=== PATIENT | female | born 1950 | race Caucasian/White ===

== ENCOUNTER 2019-01-28 20:06 | Inpatient (IN) | payer OTHER, SELFPAY ==
[2019-01-28 20:10] VITALS: BP 124/67; PULSE 69; RESP 22; TEMP 36.4; O2SAT 98
[2019-01-28 20:38] LABS: Add Manual Diff / Slide Review NO; Basophils Absolute Auto 100 /uL (0-100); Basophils Percent Auto 0.6 % (0-2); Eosinophils Absolute Auto 100 /uL (0-450); Hematocrit 41.1 % (36-46); Hemoglobin 13.7 g/dL (12.0-16.0); Lymphocytes Absolute Auto 4500 /uL (1100-4500); Lymphocytes Percent Auto 33.7 % (25-40); Mean Corpuscular HGB Conc 33.2 % (30-36); Mean Corpuscular Hemoglobin 30.5 PG (26-34); Monocytes Absolute Auto 800 /uL (0-900); Monocytes Percent Auto 5.8 % (3-14); Neutrophils Absolute Auto 7800 /uL (1500-7000); Neutrophils Percent Auto 58.9 % (50-75); Platelet Count 309 X10^3/uL (150-400); Red Blood Cell Count 4.47 X10^6/uL (4.0-5.2); Red Cell Distribution Width 13.8 % (11.6-14.8); White Blood Cell Count 13.3 X10^3/uL (4.5-11.0)
[2019-01-28 20:43] LABS: INR 1.1 (0.9-1.3); Prothrombin Time 12.2 SECONDS (10.1-12.7)
[2019-01-28 20:46] LABS: PTT Partial Thromboplastin Tim 33 SECONDS (26.4-36.2)
[2019-01-28 20:48] LABS: Alanine Aminotransferase 19 IU/L (9-52); Albumin 4.6 g/dL (3.5-5.0); Albumin Globulin Ratio 1.4 (1.0-2.8); Alkaline Phosphatase 75 U/L (38-126); Aspartate Aminotransferase 31 IU/L (14-36); Bilirubin Total 0.2 mg/dL (0.2-1.3); Blood Urea Nitrogen 16 mg/dL (7-17); Carbon Dioxide 27 mmol/L (22-32); Chloride 103 mmol/L (98-107); Estimated Glomerular Filt Rate > 60.0 mL/min (>60); Globulin 3.2 g/dL (1.7-4.1); Glucose 106 mg/dL (80-110); HEMOLYSIS < 15 (0-50); Lipase 70 U/L (23-300); Potassium 3.5 mmol/L (3.4-5.1); Sodium 141 mmol/L (137-145); Total Protein 7.8 g/dL (6.3-8.2)
--- NOTE | 2019-01-28 20:58 | ED.ABDPAIN ---
HPI - Abdominal Pain General Chief Complaint: Abdominal Pain Stated Complaint: SEVERE STOMACH PAINS AND BACK Time Seen by Provider: 01/28/19 20:49 Source: patient Mode of arrival: Ambulatory Limitations: no limitations History of Present Illness HPI narrative: 68-year-old female here for evaluation of upper abdomen discomfort. States it was a fairly sudden onset. Some nausea but no vomiting. Patient stated that she had a normal bowel movement this morning. Is still passing flatus. Has had bowel obstructions in the past that have been treated medically. 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 She states that this feels different than her prior bowel obstructions. Patient stated that she did not want any opioid medications. Related Data Previous Rx's Medication Instructions Recorded metronidazole [Flagyl] 500 mg PO TID 10 Days #0 tab 04/13/16 sulfamethoxazole-trimethoprim 1 tab PO BID 10 Days #0 tab 04/13/16 ondansetron [Zofran ODT] 4 mg SUBLINGUAL Q6HP PRN #15 odt 04/17/16 Allergies Allergy/AdvReac Type Severity Reaction Status Date / Time Penicillins [PENICILLINS] Allergy Intermediate RASH Unverified 08/05/17 12:36 ciprofloxacin [From CIPRO] AdvReac Mild NAUSEA, Unverified 08/05/17 12:36 BURSITIS Review of Systems Constitutional Constitutional: Denies headache(s) ENT Ears, Nose, Mouth, and Throat: Denies headache(s) Cardiovascular Cardiovascular: Denies chest pain and Denies dyspnea Respiratory Respiratory: Denies dyspnea Gastrointestinal Gastrointestinal: Reports abdominal pain, Denies change in stool character, Reports nausea and Denies vomiting Genitourinary Genitourinary: Denies dysuria, Denies pelvic pain and Denies vaginal discharge Musculoskeletal Musculoskeletal: Reports back pain (Upper back pain) and Denies arthralgias Integumentary/Breasts Skin/Breast: Denies lesions and Denies rash Neurologic Neurologic: Denies behavioral changes and Denies headache(s) Psychiatric Psychiatric: Denies behavioral changes Hematologic/Lymphatic Hematologic/Lymphatic: Denies easy bleeding and Denies easy bruising [facility] Surgical History History of splenectomy Status post delivery Status post endometrial ablation Status post hernia repair Family History (Updated 09/17/15 @ 00:00 by Conversion Provider) Father Heart disease Social History household members: spouse Smoking Status: Former smoker alcohol intake: current Family History (Updated 09/17/15 @ 00:00 by Conversion Provider) Father Heart disease Social History household members: spouse Smoking Status: Former smoker alcohol intake: current Exam Initial Vital Signs Initial Vital Signs: Vital Signs Temperature 97.5 F L 01/28/19 20:10 Pulse Rate 69 01/28/19 20:10 Respiratory Rate 22 01/28/19 20:10 Blood Pressure 124/67 01/28/19 20:10 Pulse Oximetry 98 01/28/19 20:10 Const General: cooperative, well developed and well groomed Orientation: alert, awake and oriented x3 HENMT Head: normal to inspection and normocephalic Resp Effort & Inspection: normal respiratory effort Auscultation: clear to auscultation bilaterally Cardio Rate: regular rate Rhythm: regular rhythm GI Inspection: non-distended Palpation: soft, No firm, guarding and tender (Upper abdomen) Back/Spine/Pelvis Back: No CVA tenderness Thoracic/Lumbar Spine: paraspinal tenderness Skin Lesions: no lesions Rashes: no rashes Neuro General: alert, awake and oriented x3 Cognition: normal cognition Speech: speech normal Extrem General: normal to inspection and capillary refill normal Psych Appearance: grossly normal and well kempt Course Orders Ordered: ED Orders 01/28/19 20:19 EKG-12 Lead Stat 01/28/19 20:25 Complete Blood Count AUTO DIFF Stat Comprehensive Metabolic Panel Stat Lipase Stat Partial Thromboplastin Time Stat Prothrombin Time INR Stat 01/28/19 20:59 CT abdomen pelvis w con Stat 01/28/19 23:07 Lactate (Lactic Acid) Stat 01/29/19 00:04 Consult to General Surgery Stat Discontinued Medications Ketorolac Tromethamine (Toradol) 30 mg IV NOW ONE Stop: 01/28/19 21:00 Last Admin: 01/28/19 21:07 Dose: 30 mg Documented by: SHONDA Lorazepam (Ativan) 1 mg IV NOW ONE Stop: 01/28/19 21:00 Last Admin: 01/28/19 21:07 Dose: 1 mg Documented by: SHONDA Lorazepam (Ativan) 1 mg IV NOW ONE Stop: 01/28/19 23:49 Last Admin: 01/29/19 00:07 Dose: 1 mg Documented by: SHONDA Vital Signs Vital signs: Vital Signs - 8 hr 01/28/19 20:10 Temperature 97.5 F L Pulse Rate 69 Respiratory Rate 22 Blood Pressure 124/67 Pulse Oximetry 98 MDM - Abdominal Pain Lab Data Attestation: I reviewed the patient's lab results. Result diagrams: 01/28/19 20:25 01/28/19 20:25 Labs: Lab Results 01/28/19 01/28/19 01/28/19 Range/Units 20:25 20:25 20:25 WBC 13.3 H (4.5-11.0) X10^3/uL RBC 4.47 (4.0-5.2) X10^6/uL Hgb 13.7 (12.0-16.0) g/dL Hct 41.1 (36-46) % MCV 92.0 (80-100) fL MCH 30.5 (26-34) PG MCHC 33.2 (30-36) % RDW 13.8 (11.6-14.8) % Plt Count 309 (150-400) X10^3/uL Neut % (Auto) 58.9 (50-75) % Lymph % (Auto) 33.7 (25-40) % [place] % (Auto) 5.8 (3-14) % Eos % (Auto) 1.0 L (2-4) % Baso % (Auto) 0.6 (0-2) % Neut # (Auto) 7800 H (6862-5792) /uL Lymph # (Auto) 4500 (0315-4808) /uL [place] # (Auto) 800 (0-900) /uL Eos # (Auto) 100 (0-450) /uL Baso # (Auto) 100 (0-100) /uL PT 12.2 (10.1-12.7) SECONDS INR 1.1 (0.9-1.3) APTT 33 (26.4-36.2) SECONDS Sodium 141 (137-145) mmol/L Potassium 3.5 (3.4-5.1) mmol/L Chloride 103 (98-107) mmol/L Carbon Dioxide 27 (22-32) mmol/L BUN 16 (7-17) mg/dL Creatinine 0.50 L (0.52-1.04) mg/dL Estimated GFR > 60.0 (>60) mL/min BUN/Creatinine Ratio 32.0 H (6-22) Glucose 106 (80-110) mg/dL Lactate (0.7-2.1) mmol/L Calcium 10.0 (8.4-10.2) mg/dL Total Bilirubin 0.2 (0.2-1.3) mg/dL AST 31 (14-36) IU/L ALT 19 (9-52) IU/L Alkaline Phosphatase 75 (38-126) U/L Total Protein 7.8 (6.3-8.2) g/dL Albumin 4.6 (3.5-5.0) g/dL Globulin 3.2 (1.7-4.1) g/dL Albumin/Globulin Ratio 1.4 (1.0-2.8) Lipase 70 (23-300) U/L 01/28/19 Range/Units 23:07 WBC (4.5-11.0) X10^3/uL RBC (4.0-5.2) X10^6/uL Hgb (12.0-16.0) g/dL Hct (36-46) % MCV (80-100) fL MCH (26-34) PG MCHC (30-36) % RDW (11.6-14.8) % Plt Count (150-400) X10^3/uL Neut % (Auto) (50-75) % Lymph % (Auto) (25-40) % [place] % (Auto) (3-14) % Eos % (Auto) (2-4) % Baso % (Auto) (0-2) % Neut # (Auto) (6112-1778) /uL Lymph # (Auto) (2092-6418) /uL [place] # (Auto) (0-900) /uL Eos # (Auto) (0-450) /uL Baso # (Auto) (0-100) /uL PT (10.1-12.7) SECONDS INR (0.9-1.3) APTT (26.4-36.2) SECONDS Sodium (137-145) mmol/L Potassium (3.4-5.1) mmol/L Chloride (98-107) mmol/L Carbon Dioxide (22-32) mmol/L BUN (7-17) mg/dL Creatinine (0.52-1.04) mg/dL Estimated GFR (>60) mL/min BUN/Creatinine Ratio (6-22) Glucose (80-110) mg/dL Lactate 0.8 (0.7-2.1) mmol/L Calcium (8.4-10.2) mg/dL Total Bilirubin (0.2-1.3) mg/dL AST (14-36) IU/L ALT (9-52) IU/L Alkaline Phosphatase (38-126) U/L Total Protein (6.3-8.2) g/dL Albumin (3.5-5.0) g/dL Globulin (1.7-4.1) g/dL Albumin/Globulin Ratio (1.0-2.8) Lipase (23-300) U/L Imaging Data CT scan - abdomen: Radiologist's impression: [address] [address] [address] Scan Report Signed Patient: Akiko Corrales [facility]#: [id number] : 2Acct:[id number] Age/Sex: 68 / FDate of Service: 01/28/19 Loc: ED Accession Number: [id number] Procedure: CT abdomen pelvis w con Ordering Provider: Amando Lira D.O. PROCEDURE: CT ABDOMEN PELVIS W CON INDICATIONS: Upper abdomen pain TECHNIQUE: After the administration of intravenous contrast, 5 mm thick sections acquired from the diaphragm to the symphysis. 5 mm coronal and sagittal reformats were acquired. For radiation dose reduction, the following was used: automated exposure control, adjustment of mA and/or kV according to patient size. COMPARISON: [facility], CT, ABDOMEN/PELVIS WITH CONTRAST, 04/13/2016, 6:45. FINDINGS: Image quality: Excellent. ABDOMEN: Lung bases: There is mild dependent atelectasis bilaterally. Heart size is normal. Solid organs: There is a small cyst in the left hepatic lobe redemonstrated. The gallbladder is nondistended limiting evaluation. No calcified gallstones. Biliary system is non-dilated. There are postsurgical changes in the distal pancreas compatible with partial pancreatectomy. No peripancreatic fat stranding or fluid collections. No pancreatic duct dilatation. The spleen is surgically absent. No adrenal nodules. Kidneys demonstrate no hydronephrosis. There is focal renal cortical thinning redemonstrated posteriorly in the right kidney consistent with sequela of prior infection, trauma, or infarct. Peritoneum and bowel: There is gastric wall thickening in the antrum compatible with a nonspecific gastritis. There is segmental wall thickening and enhancement of the small bowel in the mid abdomen extending along the midline to the left. There is associated proximal fluid distention of small bowel measuring up to 3.0 cm with scattered air-fluid levels. Small bowel loops distal to the thickened segment or nondistended. The appendix is normal in appearance. The colon demonstrates normal wall thickness and caliber. There are postsurgical changes in the sigmoid colon consistent with partial colectomy. There is minimal free fluid. No free air. Nodes and vessels: No retroperitoneal or mesenteric adenopathy by size criteria. Aorta and inferior vena cava are normal in size. Miscellaneous: No ventral hernias. PELVIS: Genitourinary: Bladder wall thickness is normal. Miscellaneous: No inguinal hernias or adenopathy. Bones: No suspicious bony lesions. No vertebral body compression fractures. IMPRESSION: 1. Segmental wall thickening of the small bowel in the mid abdomen consistent with a nonspecific infectious or inflammatory enteritis. There is associated mild segmental fluid distention of the small bowel proximal to this level with air-fluid levels consistent with a functional small bowel obstruction or an ileus. The differential for the thickened loop of small bowel includes a neoplastic process such as lymphoma but is considered less likely given the inflammatory fat stranding. 2. Gastric wall thickening in the antrum compatible with a nonspecific gastritis. Consider correlation with endoscopy. 3. Postsurgical changes consistent with prior colectomy without acute inflammatory changes in the colon. Dictated by: Dago Solis M.D. on 01/28/2019 at 22:04 Approved by: Dago Solis M.D. on 01/28/2019 at 22:11 ECG Data Attestation: I personally reviewed and interpreted this ECG as follows: Prior ECG tracings: not available for review Interpretation: Sinus rhythm Ventricular rate is 62 Normal axis Normal QRS Normal QTC No ST T wave changes MDM Narrative Medical decision making narrative: I did discuss the case with Dr. Alejandro who evaluated the patient's CT scan who stated that did not appear to be any surgical intervention needed currently. There is concern on the CT scan of potential functional obstruction versus ileus versus gastritis. Patient felt much better after the Toradol in the Ativan. She was kept NPO. I do not feel that an NG tube is needed given her lack of vomiting. I do feel given her symptoms that admission for observation and serial abdominal exams to evaluate for improvement of her symptoms is warranted. General surgery agreed with this. I did discuss the case with the [facility] who will admit for observation. Discussed this with the patient and her who is at bedside. They both expressed understanding and agreement with plan. Discharge Plan Departure Patient Disposition: Admitted as Observation Clinical Impression: Small bowel obstruction Abdominal pain Qualifiers: Abdominal location: upper abdomen, unspecified Qualified Code(s): R10.10 - Upper abdominal pain, unspecified Discharge Date/Time: 01/29/19 00:47 Admit Date/Time: 01/29/19 00:07 Admit Provider: Mike Herzog
[2019-01-28] MEDS: LORazepam 2 MG/ML INJ 1 MG IV (21:07)
[2019-01-28] MEDS: KETOROLAC 60 MG/2 ML VIAL 30 MG IV (21:07)
[2019-01-28 23:26] LABS: Lactate (Lactic Acid) 0.8 mmol/L (0.7-2.1)
[2019-01-29] VITALS (8 sets, daily range): BP systolic 106–172; BP diastolic 63–85; PULSE 66–84; RESP 16; TEMP 36.2–37.3; O2SAT 93–97; BMI 24.0
[2019-01-29] MEDS: LORazepam 2 MG/ML INJ 1 MG IV (00:07)
--- NOTE | 2019-01-29 01:23 | PC.ADMIT ---
Safe hand off from Radha RN, ED. Pt arrived via wheelchair and was able to ambulate to bedside. Pt VSS, and lung sounds clear bilaterally. Stated pain level is 2/10, pt denies nausea and bowel sounds are active in all 4 quadrants. Pt was educated on the use of call light and bed is in the low and locked position. [email or web address] Admission Note: The patient,Akiko Corrales,68 y/o, was given written information regarding hospital policies, unit procedures and contact persons. Patient's smoking status: Former smoker. Vital Signs - 8 hr 01/28/19 20:10 01/29/19 00:46 Temperature 97.5 F L 97.9 F Pulse Rate 69 69 Respiratory Rate 22 16 Blood Pressure 124/67 106/63 Pulse Oximetry 98 96
[2019-01-29] MEDS: SODIUM CHLORIDE 0.9% 1,000 ML 100 ML IV ×2 (03:12→14:46)
[2019-01-29] MEDS: ONDANSETRON 4 MG/2 ML INJ IV ×2 (04:44→16:25)
[2019-01-29] MEDS: KETOROLAC 15 MG/ML VIAL IV ×4 (04:58→22:20)
[2019-01-29] MEDS: SODIUM CHLORIDE 0.9% FLUSH 10 ML IV ×2 (04:59→23:59)
--- NOTE | 2019-01-29 05:09 | P.HP_ITS ---
History of Present Illness History of Present Illness Date Patient Seen: 01/29/19 Time Patient Seen: 05:09 Chief complaint: SEVERE STOMACH PAINS AND BACK Narrative: The patient is a 68-year-old female who presented to the ED with epigastric/periumbilical abdominal pain radiating to both left and right flank and posterior left and right aspects of the back. Symptom onset was acute. No similar abdominal discomfort in the past. Denies experiencing fever and chills. The pain is described as constant (w/variable intensity) and periods of sharp sensation. Associated symptoms include nausea, but no vomiting or diarrhea. Known to have constipation at baseline. Denies abdominal distension or increased belching. Patient is passing gas. She has had a bowel movement this morning and yesterday (01/29). She denies change in pattern of bowel and bladder. Denies hematemesis, rectal bleeding or hematuria. Urine output more concerntrated. Symptoms have taken place after eating dinner. Reports to have consumed 3 slices of pizza prior to onset of symptoms. Symptoms appeared 1 hour after eating. Also, patient has suffered from flu-like symptoms for the past week. Reports increased fatigue. Weight has been stable. 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 Patient is known to have intolerance to multiple antibiotics. History of bursitis after taking Cipro. Denies history of recurrent UTIs. No prior history of cholecystitis, pyelonephritis, or nephrolithiasis. ED presentation & work-up VS: T 97.5F HR 124/67 RR 22 SpO2 98% Labs, 4 @ 2024 WBC 13.3 Hgb 13.7 Plt 309 PT 12.2 INR 1.1 aPTT 33 Lactate 0.8 Na 141 K 3.5 Cl 103 Ca 10.0 Alb 4.6 Glu 106 CO2 27 BUN 16 Cr 0.5 BUN:Cr 32 AST 31 ALT 19 Alk Phos 75 T. Bili 0.[address] of A/P Segmental wall thickening of the small bowel in the mid abdomen consistent with a non-specific infectious or inflammatory enteritis. There is associated mild segmental fluid distention of the small bowel proximal to this level with air- fluid levels consistent with a functional small bowel obstruction or an ileus. The differential for the thickened loop of small bowel includes a neoplastic process such as lymphoma but is considered less likely given the inflammatory fat stranding. Gastric wall thickening in the antrum compatible with a non-specific gastritis. Consider correlation with endoscopy. Post-surgical changes consistent with prio r colectomy without acute inflammatory changes in the colon. Patient History Medical History Abdominal pain (Acute) Abnormal CT scan, gastrointestinal tract (Acute) Bursitis (Acute) Diverticulosis (Acute) Pancreatic mass (Acute) Surgical History History of bowel resection (Acute) History of pancreatectomy (Acute) History of splenectomy Status post delivery Status post endometrial ablation Status post hernia repair Family History Father Heart disease Mother No known health problems Social History household members: spouse Smoking Status: Former smoker alcohol intake: current Family & Social History Family History Father Heart disease Mother No known health problems Social History: household members Spouse Prior Living Arrangements House Safety & Behavioral: Feels Safe in Current Yes Environment Been Physically Hurt or No Threatened By a Person Suicidal Ideation Description None Suicide Plan Description No Plan Tobacco & Substance use: Smoking Status Former smoker, 2-3 years upto 1 ppd, quit 50 yrs ago alcohol intake Current, on occasion, no history of heavy alcohol use alcohol intake frequency Holiday/special occasion Substance Use Type Denies prior and current use Meds Home Medications and Allergies Home Medications Medication Instructions Recorded Confirmed Type metronidazole [Flagyl] 500 mg PO TID 10 Days #0 tab 04/13/16 Rx sulfamethoxazole-trimethoprim 1 tab PO BID 10 Days #0 tab 04/13/16 Rx ondansetron [Zofran ODT] 4 mg SUBLINGUAL Q6HP PRN #15 odt 04/17/16 Rx Allergies Allergy/AdvReac Type Severity Reaction Status Date / Time Penicillins [PENICILLINS] Allergy Intermediate RASH Verified 10/05/19 10:40 ciprofloxacin [From CIPRO] AdvReac Mild NAUSEA, Verified 01/29/19 10:40 BURSITIS metronidazole [From Flagyl] AdvReac Mild Nausea Verified 01/29/19 10:40 Review of Systems Review of Systems ROS Unobtainable: All systems reviewed & are unremarkable except as noted in HPI and below Exam Vital Signs (past 8 hours): - 01/29/19 00:46 01/29/19 02:44 01/29/19 04:30 Temperature 97.9 F 97.1 F L Pulse Rate 69 66 Respiratory Rate 16 16 Blood Pressure 106/63 117/73 Pulse Oximetry 96 96 97 Oxygen Delivery Method Room Air Narrative Exam Narrative: Constitutional: Seen at bedside, experiencing abdominal discomfort 5/10, grabbing with hands to the mid abdomen. Neurologic: AOx3, no focal neurological deficits, fair historian, Psych: [id number] anxiety noted Head: NC, AT Eyes: PERRL, EOMI, no scleral icterus Ears: external ears normal, no otorrhea Nose: external nose normal, no rhinorrhea or epistaxis Throat: dry MM, oropharynx w/o exudate Neck: no masses, lymphadenopathy, or JVD Chest / Respiratory: equal chest rise, unlabored respiratory effort, no dyspnea or tachypnea, CTA RUL, RML, JUANY and diminished RLL and LLL. On room air. Heart / CV: S1S2, no murmur Abdomen / GI: - Round, soft, HYPERactive BS RUQ, LUQ, HYPOactive BS RLL, NORMOactive BS LLL, no overt / palpable organomegaly - Abdominal pain with mild to moderate palpation epigastric and LUQ w/ guarding; - Pt. reports pain in the RUQ on palpation; however, the area is not as sensitive as the epigastrium or LUQ, able to deeply palpate w/o non-verbal evidence or behavior to suggest pain or discomfort in the area - No distension : no suprapubic tenderness, mild some suprapubic distention, left flank tenderness Peripheral / Vascular: warm to touch, DP and PT pulses palpable, no edema Musc: full ROM of upper and lower extremities, adequate muscle tone and bulk Skin: no ecchymosis or suspicious lesions / ulcers Objective Labs Result Diagrams: 01/30/19 06:15 01/30/19 06:15 Labs: Laboratory Results - last 24 hr 01/28/19 01/28/19 01/28/19 20:25 20:25 20:25 WBC 13.3 H RBC 4.47 Hgb 13.7 Hct 41.1 MCV 92.0 MCH 30.5 MCHC 33.2 RDW 13.8 Plt Count 309 Neut % (Auto) 58.9 Lymph % (Auto) 33.7 [place] % (Auto) 5.8 Eos % (Auto) 1.0 L Baso % (Auto) 0.6 Neut # (Auto) 7800 H Lymph # (Auto) 4500 [place] # (Auto) 800 Eos # (Auto) 100 Baso # (Auto) 100 PT 12.2 INR 1.1 APTT 33 Sodium 141 Potassium 3.5 Chloride 103 Carbon Dioxide 27 BUN 16 Creatinine 0.50 L Estimated GFR > 60.0 BUN/Creatinine Ratio 32.0 H Glucose 106 Lactate Calcium 10.0 Total Bilirubin 0.2 AST 31 ALT 19 Alkaline Phosphatase 75 Total Protein 7.8 Albumin 4.6 Globulin 3.2 Albumin/Globulin Ratio 1.4 Lipase 70 01/28/19 23:07 WBC RBC Hgb Hct MCV MCH MCHC RDW Plt Count Neut % (Auto) Lymph % (Auto) [place] % (Auto) Eos % (Auto) Baso % (Auto) Neut # (Auto) Lymph # (Auto) [place] # (Auto) Eos # (Auto) Baso # (Auto) PT INR APTT Sodium Potassium Chloride Carbon Dioxide BUN Creatinine Estimated GFR BUN/Creatinine Ratio Glucose Lactate 0.8 Calcium Total Bilirubin AST ALT Alkaline Phosphatase Total Protein Albumin Globulin Albumin/Globulin Ratio Lipase Assessment & Plan Assessment & Plan narrative: Patient is being admitted under observation status for questionable / evolving small bowel obstruction. Abdominal pain, intractable, acute, present on admission, active In the setting of gastroenteritis vs. potential sbo - CBC with leukocytosis (WBC 13.3), but w/o left shift. Lactate WNL. - CT A/P segmental wall thickening of the small bowel in the mid abdomen, consistent with nonspecific infectious or inflammatory enteritis; associated mild segmental fluid distension of the small bowel proximal to this level with air- fluid levels consistent with a functional small bowel obstruction or an ileus. Patient is allergic or either intolerant to number of antibiotics. Allergies reviewed, penicillin (rash), flagyl (nausea / vomiting), cipro (GI intolerance, bursitis). Viral vs. Bacterial pathology. Will trial ertapenem 1 gm Q24H. No clear indication. Also, carries mild risk of cross sensitivity given underlying allergy to PCN. Another alternative would be to consider pre- medicating patient with antiemetics and giving ceftriaxone with Flagyl or stopping antibiotics altogether. General surgery has been consulted, pending evaluation feedback - Blood culture prior to labs - Obtain urinalysis, DDx: UTI, pyelonephritis - Respiratory viral panel, PCT, CRP - Supportive care: Pain and nausea control Gastrotenteritis, acute, present on admission, active Viral vs. bacterial vs allergic - See POC for'abdominal pain' Functional early small bowel obstruction vs ileus, acute, present on admission, active - Consult general sugery - NPO for bowel rest, advance diet only if cleared by general surgery - Consider NGT for increased pain, abdominal distension, vomiting for bowel decompression - Will need to follow up with abdominal series later in the day or tomorrow - IVF resuscitation - Correct / maintain electrolyte balance, replace deficiencies accordingly - Supportive care, pain control, nausea control - Monitor closely for acute abdominal ischemia - CBC, CMP, Mg in am Full code, spouse is a proxy decision maker. VTE w/ SCDs
[2019-01-29 05:21] LABS: WBC Urine None Seen (0-5/HPF)
[2019-01-29 05:28] LABS: Appearance Urine UA CLEAR; Bilirubin Urine UA NEGATIVE (NEGATIVE); Color Urine UA YELLOW; Glucose Urine UA NEGATIVE (Negative); Ketones Urine UA NEGATIVE (NEGATIVE); Leukocyte Esterase Urine UA NEGATIVE (NEGATIVE); Nitrite Urine UA NEGATIVE (Negative); Occult Blood Urine UA NEGATIVE (Negative); Protein Urine UA 1+ (Negative); Specific Gravity Urine UA <=1.005 (1.000-1.035); Urobilinogen Urine UA 0.2 E.U./dL (0.2)
[2019-01-29 05:54] LABS: pH Urine UA 6.5 (4.5-8.0)
[2019-01-29 05:55] LABS: RBC Urine 0-1/HPF (0-5/HPF); Squamous Epithelial Cell Urine 0-1 /HPF (0-5/HPF)
[2019-01-29 05:56] LABS: Bacteria Urine Occasional (0-1); Calcium Oxalate Crystals Urine Few; Culture Indicated Urine Cult Not Indicated; Hyaline Casts Urine 0-1/LPF
[2019-01-29 06:27] LABS: Add Manual Diff / Slide Review NO; Basophils Absolute Auto 100 /uL (0-100); Eosinophils Absolute Auto 100 /uL (0-450); Eosinophils Percent Auto 1.3 % (2-4); Hematocrit 41.5 % (36-46); Hemoglobin 13.8 g/dL (12.0-16.0); Lymphocytes Absolute Auto 2200 /uL (1100-4500); Mean Corpuscular HGB Conc 33.2 % (30-36); Mean Corpuscular Hemoglobin 30.5 PG (26-34); Mean Corpuscular Volume 91.9 fL (80-100); Monocytes Absolute Auto 1000 /uL (0-900); Monocytes Percent Auto 9.3 % (3-14); Neutrophils Absolute Auto 7200 /uL (1500-7000); Neutrophils Percent Auto 67.4 % (50-75); Platelet Count 309 X10^3/uL (150-400); Red Blood Cell Count 4.52 X10^6/uL (4.0-5.2); Red Cell Distribution Width 13.8 % (11.6-14.8); White Blood Cell Count 10.7 X10^3/uL (4.5-11.0)
[2019-01-29 06:35] LABS: Magnesium 2.1 mg/dL (1.6-2.3)
[2019-01-29 06:48] LABS: Hemoglobin A1C% w Est Avg Glu 5.6 % (4.0-6.0)
[2019-01-29 06:58] LABS: Procalcitonin < 0.05 ng/mL (<0.5)
--- NOTE | 2019-01-29 07:42 | DI.RAD.S_ITS ---
PROCEDURE: XR KUB INDICATIONS: SBO vs ileus, increasing abdominal pain TECHNIQUE: One view of the abdomen acquired. COMPARISON: [facility], CT, CT ABDOMEN PELVIS W CON, 01/28/2019, 21:36. FINDINGS: Surgical changes and devices: None. Bowel: Moderate residual stool is identified within the proximal colon. There are no air-filled distended small bowel loops demonstrating air-fluid levels. No definite free air. No Soft tissues: No suspicious abdominal calcifications. Visualized solid organ contours appear normal in size. Contrast is seen within the urinary bladder. Bones: No suspicious bony lesions. IMPRESSION: No convincing findings of a bowel obstruction. Dictated by: Kirit Brady M.D. on 01/29/2019 at 7:27 Approved by: Kirit Brady M.D. on 01/29/2019 at 7:29
[2019-01-29 08:12] LABS: Adenovirus Not Detected (Not Detect); Bordetella pertussis Not Detected (Not Detect); Chlamydophila pneumoniae Not Detected (Not Detect); Coronavirus 229E Not Detected (Not Detect); Coronavirus HKU1 Not Detected (Not Detect); Coronavirus NL 63 Not Detected (Not Detect); Coronavirus OC43 Not Detected (Not Detect); Human Metapneumovirus Not Detected (Not Detect); Human Rhinovirus/Enterovirus Not Detected (Not Detect); Influenza A Not Detected (Not Detect); Influenza B Not Detected (Not Detect); Mycoplasma pneumoniae Not Detected (Not Detect); Parainfluenza Virus 1 Not Detected (Not Detect); Parainfluenza Virus 2 Not Detected (Not Detect); Parainfluenza Virus 3 Not Detected (Not Detect); Parainfluenza Virus 4 Not Detected (Not Detect); Respiratory Syncytial Virus Not Detected (Not Detect)
[2019-01-29] MEDS: ERTAPENEM 1 GM in SODIUM CHLORIDE 0.9% 100 ML 200 ML IV (09:20)
--- NOTE | 2019-01-29 10:02 | PC.NURSE ---
Addendum entered by Casandra Martinez R.N. 01/29/19 11:12: Spoke with Dr. Gamboa briefly, pt requesting prn Ativan for anxiety, feeling mild nausea. At 1105, pt updated that she may have clear liquid diet. water, coffee given, jello ordered per pt request. pain increased to mid abd and radiating to back from 2 to 5-6/10, scheduled Toradol given. pt aware of prn Ultram new order as well for pain management. Original Note: Day Shift- Pt reports 2/10 aching to mid abd and is like a band around radiating to back, less pain than on admission. Pt requested prn ativan to help with pain and relaxing from anxiousness. None ordered at this time, Night RN stated that night ABALONE SHELLER was aware. Will follow up with day physician. Pt to KUB at 0800. Stool sample for GI panel sent to lab at 0855 by SONIA. Pt having formed BM's. Pt's updated in room around 0920. Pt NPO at this time, IVF infusing well to right AC PIV. Pt denies nausea, states does have abd bloating, tender to mid abd. Bowel sounds active to hyper active, passing flatus. Will continue to monitor.
--- NOTE | 2019-01-29 10:16 | P.CONS_ITS ---
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 Yesterday evening after eating pizza for dinner she started to have a ?stomachache.? As she describes her pain as sharp and epigastric. She denies nausea, vomiting, diarrhea, constipation. She continues to pass gas and stool. On her CT scan from the ER she had markedly abnormal small intestine with patchy thickening, and areas of dilation and air-fluid levels without a clear transition point or obstruction. She is not clinically obstructed as she continues to pass gas or stool. Her white count was 13 in the ER, and this morning it is 10. Last evening she got some Toradol in the ER, and this morning her pain is from a 10 down to a 2. She was given ertapenem last night. [facility] Medical History Bursitis (Acute) Diverticulosis (Acute) Pancreatic mass (Acute) Surgical History History of bowel resection (Acute) History of pancreatectomy (Acute) History of splenectomy Status post delivery Status post endometrial ablation Status post hernia repair Family History Father Heart disease Mother No known health problems Social History household members: spouse Smoking Status: Former smoker alcohol intake: current Family History Father Heart disease Mother No known health problems Social History household members: spouse Smoking Status: Former smoker alcohol intake: current Meds Home Medications and Allergies Home Medications Medication Instructions Recorded Confirmed Type metronidazole [Flagyl] 500 mg PO TID 10 Days #0 tab 04/13/16 Rx sulfamethoxazole-trimethoprim 1 tab PO BID 10 Days #0 tab 04/13/16 Rx ondansetron [Zofran ODT] 4 mg SUBLINGUAL Q6HP PRN #15 odt 04/17/16 Rx Allergies Allergy/AdvReac Type Severity Reaction Status Date / Time Penicillins [PENICILLINS] Allergy Intermediate RASH Unverified 08/05/17 12:36 ciprofloxacin [From CIPRO] AdvReac Mild NAUSEA, Unverified 08/05/17 12:36 BURSITIS Review of Systems Review of Systems Narrative: All systems reviewed and unremarkable except as noted in HPI ambulate 0 Exam Vital Signs (past 8 hours): - 01/29/19 02:44 01/29/19 04:30 01/29/19 09:00 Temperature 97.1 F L 98.7 F Pulse Rate 66 73 Respiratory Rate 16 16 Blood Pressure 117/73 119/84 Pulse Oximetry 96 97 96 Oxygen Delivery Method Room Air Oxygen Flow Rate 0 Narrative Exam Narrative: GENERAL: Well groomed and cooperative. Appears stated age. Answers questions promptly and appropriately. Vital signs noted. HENT: Normocephalic, atraumatic. Hearing intact. Oral mucosa is pink and moist. EYES: Conjunctiva pink, sclera white, no periorbital swelling. CARDIOVASCULAR: Regular rate. No pedal edema. RESPIRATORY: Normal respiratory rate, breathing comfortably on room air. GASTROINTESTINAL: Abdomen soft and non-distended; well-healed midline incisional scar, minimal tenderness to palpation in the epigastrium GENITALURINARY: No flank tenderness. MUSCULOSKELETAL: Equal tone and mass bilaterally. SKIN: Warm, dry, soft, appropriate color for ethnicity. No other lesions, rashes, or wounds. NEURO: Alert and Oriented X 3. Good coordination. No sensory deficits, or cognitive issues. PSYCH: Appropriate affect and mood. Objective Labs Result Diagrams: 01/29/19 05:52 01/28/19 20:25 Labs: Laboratory Results - last 24 hr 01/28/19 01/28/19 01/28/19 20:25 20:25 20:25 WBC 13.3 H RBC 4.47 Hgb 13.7 Hct 41.1 MCV 92.0 MCH 30.5 MCHC 33.2 RDW 13.8 Plt Count 309 Neut % (Auto) 58.9 Lymph % (Auto) 33.7 [place] % (Auto) 5.8 Eos % (Auto) 1.0 L Baso % (Auto) 0.6 Neut # (Auto) 7800 H Lymph # (Auto) 4500 [place] # (Auto) 800 Eos # (Auto) 100 Baso # (Auto) 100 PT 12.2 INR 1.1 APTT 33 Sodium 141 Potassium 3.5 Chloride 103 Carbon Dioxide 27 BUN 16 Creatinine 0.50 L Estimated GFR > 60.0 BUN/Creatinine Ratio 32.0 H Glucose 106 Hemoglobin A1c Lactate Calcium 10.0 Magnesium Total Bilirubin 0.2 AST 31 ALT 19 Alkaline Phosphatase 75 C-Reactive Protein Total Protein 7.8 Albumin 4.6 Globulin 3.2 Albumin/Globulin Ratio 1.4 Lipase 70 Procalcitonin Urine Color Urine Appearance Urine pH Ur Specific [place] Urine Protein Urine Glucose (UA) Urine Ketones Urine Occult Blood Urine Nitrate Urine Bilirubin Urine Urobilinogen Ur Leukocyte Esterase Urine RBC Urine WBC Ur Squamous Epith Cells Calcium Oxalate Crystal Urine Bacteria Hyaline Casts Ur Culture Indicated? Chlamy pneumoniae PCR Adenovirus (PCR) B.parapertussis DNA PCR Coronavirus OC43 (PCR) Coronavirus HKU1 (PCR) Coronavirus 229E (PCR) Coronavirus NL63 (PCR) Human Metapneumovir PCR Influenza Type A (PCR) Influenza Type B (PCR) M. pneumoniae (PCR) Parainfluenza 1 (PCR) Parainfluenza 2 (PCR) Parainfluenza 3 (PCR) Parainfluenza 4 (PCR) RSV (PCR) Entero/Rhino (PCR) 01/28/19 01/29/19 01/29/19 23:07 05:20 05:52 WBC 10.7 RBC 4.52 Hgb 13.8 Hct 41.5 MCV 91.9 MCH 30.5 MCHC 33.2 RDW 13.8 Plt Count 309 Neut % (Auto) 67.4 Lymph % (Auto) 21.0 L [place] % (Auto) 9.3 Eos % (Auto) 1.3 L Baso % (Auto) 1.0 Neut # (Auto) 7200 H Lymph # (Auto) 2200 [place] # (Auto) 1000 H Eos # (Auto) 100 Baso # (Auto) 100 PT INR APTT Sodium Potassium Chloride Carbon Dioxide BUN Creatinine Estimated GFR BUN/Creatinine Ratio Glucose Hemoglobin A1c Lactate 0.8 Calcium Magnesium Total Bilirubin AST ALT Alkaline Phosphatase C-Reactive Protein Total Protein Albumin Globulin Albumin/Globulin Ratio Lipase Procalcitonin Urine Color Yellow Urine Appearance Clear Urine pH 6.5 Ur Specific [place] <=1.005 Urine Protein 1+ H Urine Glucose (UA) Negative Urine Ketones Negative Urine Occult Blood Negative Urine Nitrate Negative Urine Bilirubin Negative Urine Urobilinogen 0.2 Ur Leukocyte Esterase Negative Urine RBC 0-1/hpf Urine WBC None seen Ur Squamous Epith Cells 0-1 /hpf Calcium Oxalate Crystal Few H Urine Bacteria Occasional (0-1) Hyaline Casts 0-1/lpf Ur Culture Indicated? Cult not indicated Chlamy pneumoniae PCR Adenovirus (PCR) B.parapertussis DNA PCR Coronavirus OC43 (PCR) Coronavirus HKU1 (PCR) Coronavirus 229E (PCR) Coronavirus NL63 (PCR) Human Metapneumovir PCR Influenza Type A (PCR) Influenza Type B (PCR) M. pneumoniae (PCR) Parainfluenza 1 (PCR) Parainfluenza 2 (PCR) Parainfluenza 3 (PCR) Parainfluenza 4 (PCR) RSV (PCR) Entero/Rhino (PCR) 01/29/19 01/29/19 01/29/19 05:52 05:52 05:52 WBC RBC Hgb Hct MCV MCH MCHC RDW Plt Count Neut % (Auto) Lymph % (Auto) [place] % (Auto) Eos % (Auto) Baso % (Auto) Neut # (Auto) Lymph # (Auto) [place] # (Auto) Eos # (Auto) Baso # (Auto) PT INR APTT Sodium Potassium Chloride Carbon Dioxide BUN Creatinine Estimated GFR BUN/Creatinine Ratio Glucose Hemoglobin A1c Lactate Calcium Magnesium 2.1 Total Bilirubin AST ALT Alkaline Phosphatase C-Reactive Protein 1.0 Total Protein Albumin Globulin Albumin/Globulin Ratio Lipase Procalcitonin < 0.05 Urine Color Urine Appearance Urine pH Ur Specific [place] Urine Protein Urine Glucose (UA) Urine Ketones Urine Occult Blood Urine Nitrate Urine Bilirubin Urine Urobilinogen Ur Leukocyte Esterase Urine RBC Urine WBC Ur Squamous Epith Cells Calcium Oxalate Crystal Urine Bacteria Hyaline Casts Ur Culture Indicated? Chlamy pneumoniae PCR Adenovirus (PCR) B.parapertussis DNA PCR Coronavirus OC43 (PCR) Coronavirus HKU1 (PCR) Coronavirus 229E (PCR) Coronavirus NL63 (PCR) Human Metapneumovir PCR Influenza Type A (PCR) Influenza Type B (PCR) M. pneumoniae (PCR) Parainfluenza 1 (PCR) Parainfluenza 2 (PCR) Parainfluenza 3 (PCR) Parainfluenza 4 (PCR) RSV (PCR) Entero/Rhino (PCR) 01/29/19 01/29/19 05:52 06:00 WBC RBC Hgb Hct MCV MCH MCHC RDW Plt Count Neut % (Auto) Lymph % (Auto) [place] % (Auto) Eos % (Auto) Baso % (Auto) Neut # (Auto) Lymph # (Auto) [place] # (Auto) Eos # (Auto) Baso # (Auto) PT INR APTT Sodium Potassium Chloride Carbon Dioxide BUN Creatinine Estimated GFR BUN/Creatinine Ratio Glucose Hemoglobin A1c 5.6 Lactate Calcium Magnesium Total Bilirubin AST ALT Alkaline Phosphatase C-Reactive Protein Total Protein Albumin Globulin Albumin/Globulin Ratio Lipase Procalcitonin Urine Color Urine Appearance Urine pH Ur Specific [place] Urine Protein Urine Glucose (UA) Urine Ketones Urine Occult Blood Urine Nitrate Urine Bilirubin Urine Urobilinogen Ur Leukocyte Esterase Urine RBC Urine WBC Ur Squamous Epith Cells Calcium Oxalate Crystal Urine Bacteria Hyaline Casts Ur Culture Indicated? Chlamy pneumoniae PCR Not detected Adenovirus (PCR) Not detected B.parapertussis DNA PCR Not detected Coronavirus OC43 (PCR) Not detected Coronavirus HKU1 (PCR) Not detected Coronavirus 229E (PCR) Not detected Coronavirus NL63 (PCR) Not detected Human Metapneumovir PCR Not detected Influenza Type A (PCR) Not detected Influenza Type B (PCR) Not detected M. pneumoniae (PCR) Not detected Parainfluenza 1 (PCR) Not detected Parainfluenza 2 (PCR) Not detected Parainfluenza 3 (PCR) Not detected Parainfluenza 4 (PCR) Not detected RSV (PCR) Not detected Entero/Rhino (PCR) Not detected Assessment & Plan Assessment and plan (1) Abdominal pain: Qualifiers: Abdominal location: upper abdomen, unspecified Qualified Code(s): R10. 10 - Upper abdominal pain, unspecified Current visit: Yes Status: Acute (2) Abnormal CT scan, gastrointestinal tract: Current visit: Yes Status: Acute Assessment & Plan narrative: This is a 68-year-old woman with abdominal pain and abnormal CT scan concerning for gastroenteritis, possible IBD, possible transient ischemia, possible adhesive disease. Her abdominal pain and white blood cell count have improved. CT scan findings may represent gastroenteritis, IBD, infection, or transient ischemia. We will continue to monitor the patient's physical exam and clinical findings, and attempt to advance her diet to clears as tolerated. We may repeat interval imaging. Plan: Advanced to clears Continue IV fluids DC antibiotics Home meds per hospitalist Pain meds as needed Call if any sudden worsening or clinical change OK for DVT prophylaxis Time Spent With Patient Time with patient: 25 - 35 minutes
[2019-01-29] MEDS: LORazepam 0.5 MG TABLET PO ×2 (10:55→18:04)
[2019-01-29 12:06] LABS: Adenovirus F 40/41 Not Detected (Not Detect); Astrovirus Not Detected (Not Detect); Campylobacter Not Detected (Not Detect); Clostridium difficile toxin AB Not Detected (Not Detect); Cryptosporidium Not Detected (Not Detect); Cyclospora cayetanensis Not Detected (Not Detect); Entamoeba histolytica Not Detected (Not Detect); Enteroaggregative E.coli Not Detected (Not Detect); Enteropathogenic E.coli Not Detected (Not Detect); Enterotoxigenic E.coli It/st Not Detected (Not Detect); Giardia lamblia Not Detected (Not Detect); Norovirus GI/GII Not Detected (Not Detect); Plesiomonsa shigelloides Not Detected (Not Detect); Rotavirus A Not Detected (Not Detect); Salmonella Not Detected (Not Detect); Shiga-like toxin-prod E.coli Not Detected (Not Detect); Shigella/Enteroinvasive E.coli Not Detected (Not Detect); Vibrio Not Detected (Not Detect); Vibrio cholerae Not Detected (Not Detect); Yersinia enterocolitica Not Detected (Not Detect)
--- NOTE | 2019-01-29 13:53 | CM.DANOTE ---
Addendum entered by Katia Aviles LPN 01/29/19 14:23: Pt is now up and mobilizing independendently around the acute care floor with at her side. Addendum entered by Katia Aviles LPN 01/29/19 14:07: UR: weekend protocol. Conferred with UR HAYDER Rehman. Will now fax initial clinical to [facility]. Receipt of fax confirmation: received: 01/29: 1:57 PM. Document given to [facility] to process on Thursday.01/31 Original Note: Discharge Planning/Care Management DCP: assessment: case received, EMR reviewed. Discussed in Team Rounds. Pt is a 68 year old female who admitted just after midnight to care of hopitalist team. [place] [facility] team is consulting and Dr. Alejandro has see pt today. Full dx and POC is in process. Pt does have extensive surgical history including colon resection related to diverticulitis. Dr. Gamboa explains dx is likely gastroenteritis. Diet is advance to clears. Pt will likely d/c to home setting when stable for same but will be following as POC unfolds. CM Discharge Assessment Start: 01/29/19 13:51 Freq: Status: Active Protocol: Document 01/29/19 13:51 ITV (Rec: 01/29/19 13:53 ITV [id number]) Discharge Planning Assessment Advance Directives? No History Provided By Patient,Medical Record Prior Living Arrangements House Household Members spouse Independent with ADL's Yes Is patient alert and oriented? Yes Review Status In Process
[2019-01-29] MEDS: TRAMADOL 50 MG TABLET PO (14:46)
[2019-01-29] MEDS: POLYETHYLENE GLYCOL 3350 17 GM POWD.PACK PO (14:56)
--- NOTE | 2019-01-29 18:21 | PC.NURSE ---
Pt cannot drink even sips of water, despite 4 mg IVP Zofran on board. Unable to drink Miralax. aware.
--- NOTE | 2019-01-29 19:06 | P.PN_ITS ---
Subjective Subjective Date Patient Seen: 01/29/19 Exam Vital Signs (past 8 hours): - 01/29/19 16:03 01/29/19 16:56 Temperature 99.2 F Pulse Rate 77 Respiratory Rate 16 Blood Pressure 172/78 H Pulse Oximetry 97 95 Oxygen Delivery Method Room Air Oxygen Flow Rate 0 Objective Labs Result Diagrams: 01/29/19 05:52 01/28/19 20:25 Labs: Laboratory Results - last 24 hr 01/28/19 01/28/19 01/28/19 20:25 20:25 20:25 WBC 13.3 H RBC 4.47 Hgb 13.7 Hct 41.1 MCV 92.0 MCH 30.5 MCHC 33.2 RDW 13.8 Plt Count 309 Neut % (Auto) 58.9 Lymph % (Auto) 33.7 [place] % (Auto) 5.8 Eos % (Auto) 1.0 L Baso % (Auto) 0.6 Neut # (Auto) 7800 H Lymph # (Auto) 4500 [place] # (Auto) 800 Eos # (Auto) 100 Baso # (Auto) 100 PT 12.2 INR 1.1 APTT 33 Sodium 141 Potassium 3.5 Chloride 103 Carbon Dioxide 27 BUN 16 Creatinine 0.50 L Estimated GFR > 60.0 BUN/Creatinine Ratio 32.0 H Glucose 106 Hemoglobin A1c Lactate Calcium 10.0 Magnesium Total Bilirubin 0.2 AST 31 ALT 19 Alkaline Phosphatase 75 C-Reactive Protein Total Protein 7.8 Albumin 4.6 Globulin 3.2 Albumin/Globulin Ratio 1.4 Lipase 70 Procalcitonin Urine Color Urine Appearance Urine pH Ur Specific [place] Urine Protein Urine Glucose (UA) Urine Ketones Urine Occult Blood Urine Nitrate Urine Bilirubin Urine Urobilinogen Ur Leukocyte Esterase Urine RBC Urine WBC Ur Squamous Epith Cells Calcium Oxalate Crystal Urine Bacteria Hyaline Casts Ur Culture Indicated? Stl C. cayetanensis PCR Stool Rotavirus (PCR) Stool Adenovirus (PCR) Stool Astrovirus (PCR) Stool Cryptosporidium PCR Stl E.coli Shiga Tox PCR St Sh/Enteroin Ecoli PCR Stool E coli O157 PCR Stl Enterotoxigenic E PCR Stool EPEC (PCR) Stl E. histolytica PCR Stool Giardia Lamblia PCR Stl P. shigelloides PCR St Y.enterocolitica PCR Stool Vibrio (PCR) Stl Vibrio cholerae PCR Stl Enteroaggr Ecoli PCR Stl Norovirus GI/GII PCR Chlamy pneumoniae PCR Adenovirus (PCR) B.parapertussis DNA PCR Campylobacter (PCR) C. difficile Tox (PCR) Coronavirus OC43 (PCR) Coronavirus HKU1 (PCR) Coronavirus 229E (PCR) Coronavirus NL63 (PCR) Human Metapneumovir PCR Influenza Type A (PCR) Influenza Type B (PCR) M. pneumoniae (PCR) Parainfluenza 1 (PCR) Parainfluenza 2 (PCR) Parainfluenza 3 (PCR) Parainfluenza 4 (PCR) RSV (PCR) Entero/Rhino (PCR) Salmonella (PCR) 01/28/19 01/29/19 01/29/19 23:07 05:20 05:52 WBC 10.7 RBC 4.52 Hgb 13.8 Hct 41.5 MCV 91.9 MCH 30.5 MCHC 33.2 RDW 13.8 Plt Count 309 Neut % (Auto) 67.4 Lymph % (Auto) 21.0 L [place] % (Auto) 9.3 Eos % (Auto) 1.3 L Baso % (Auto) 1.0 Neut # (Auto) 7200 H Lymph # (Auto) 2200 [place] # (Auto) 1000 H Eos # (Auto) 100 Baso # (Auto) 100 PT INR APTT Sodium Potassium Chloride Carbon Dioxide BUN Creatinine Estimated GFR BUN/Creatinine Ratio Glucose Hemoglobin A1c Lactate 0.8 Calcium Magnesium Total Bilirubin AST ALT Alkaline Phosphatase C-Reactive Protein Total Protein Albumin Globulin Albumin/Globulin Ratio Lipase Procalcitonin Urine Color Yellow Urine Appearance Clear Urine pH 6.5 Ur Specific [place] <=1.005 Urine Protein 1+ H Urine Glucose (UA) Negative Urine Ketones Negative Urine Occult Blood Negative Urine Nitrate Negative Urine Bilirubin Negative Urine Urobilinogen 0.2 Ur Leukocyte Esterase Negative Urine RBC 0-1/hpf Urine WBC None seen Ur Squamous Epith Cells 0-1 /hpf Calcium Oxalate Crystal Few H Urine Bacteria Occasional (0-1) Hyaline Casts 0-1/lpf Ur Culture Indicated? Cult not indicated Stl C. cayetanensis PCR Stool Rotavirus (PCR) Stool Adenovirus (PCR) Stool Astrovirus (PCR) Stool Cryptosporidium PCR Stl E.coli Shiga Tox PCR St Sh/Enteroin Ecoli PCR Stool E coli O157 PCR Stl Enterotoxigenic E PCR Stool EPEC (PCR) Stl E. histolytica PCR Stool Giardia Lamblia PCR Stl P. shigelloides PCR St Y.enterocolitica PCR Stool Vibrio (PCR) Stl Vibrio cholerae PCR Stl Enteroaggr Ecoli PCR Stl Norovirus GI/GII PCR Chlamy pneumoniae PCR Adenovirus (PCR) B.parapertussis DNA PCR Campylobacter (PCR) C. difficile Tox (PCR) Coronavirus OC43 (PCR) Coronavirus HKU1 (PCR) Coronavirus 229E (PCR) Coronavirus NL63 (PCR) Human Metapneumovir PCR Influenza Type A (PCR) Influenza Type B (PCR) M. pneumoniae (PCR) Parainfluenza 1 (PCR) Parainfluenza 2 (PCR) Parainfluenza 3 (PCR) Parainfluenza 4 (PCR) RSV (PCR) Entero/Rhino (PCR) Salmonella (PCR) 01/29/19 01/29/19 01/29/19 05:52 05:52 05:52 WBC RBC Hgb Hct MCV MCH MCHC RDW Plt Count Neut % (Auto) Lymph % (Auto) [place] % (Auto) Eos % (Auto) Baso % (Auto) Neut # (Auto) Lymph # (Auto) [place] # (Auto) Eos # (Auto) Baso # (Auto) PT INR APTT Sodium Potassium Chloride Carbon Dioxide BUN Creatinine Estimated GFR BUN/Creatinine Ratio Glucose Hemoglobin A1c Lactate Calcium Magnesium 2.1 Total Bilirubin AST ALT Alkaline Phosphatase C-Reactive Protein 1.0 Total Protein Albumin Globulin Albumin/Globulin Ratio Lipase Procalcitonin < 0.05 Urine Color Urine Appearance Urine pH Ur Specific [place] Urine Protein Urine Glucose (UA) Urine Ketones Urine Occult Blood Urine Nitrate Urine Bilirubin Urine Urobilinogen Ur Leukocyte Esterase Urine RBC Urine WBC Ur Squamous Epith Cells Calcium Oxalate Crystal Urine Bacteria Hyaline Casts Ur Culture Indicated? Stl C. cayetanensis PCR Stool Rotavirus (PCR) Stool Adenovirus (PCR) Stool Astrovirus (PCR) Stool Cryptosporidium PCR Stl E.coli Shiga Tox PCR St Sh/Enteroin Ecoli PCR Stool E coli O157 PCR Stl Enterotoxigenic E PCR Stool EPEC (PCR) Stl E. histolytica PCR Stool Giardia Lamblia PCR Stl P. shigelloides PCR St Y.enterocolitica PCR Stool Vibrio (PCR) Stl Vibrio cholerae PCR Stl Enteroaggr Ecoli PCR Stl Norovirus GI/GII PCR Chlamy pneumoniae PCR Adenovirus (PCR) B.parapertussis DNA PCR Campylobacter (PCR) C. difficile Tox (PCR) Coronavirus OC43 (PCR) Coronavirus HKU1 (PCR) Coronavirus 229E (PCR) Coronavirus NL63 (PCR) Human Metapneumovir PCR Influenza Type A (PCR) Influenza Type B (PCR) M. pneumoniae (PCR) Parainfluenza 1 (PCR) Parainfluenza 2 (PCR) Parainfluenza 3 (PCR) Parainfluenza 4 (PCR) RSV (PCR) Entero/Rhino (PCR) Salmonella (PCR) 01/29/19 01/29/19 01/29/19 05:52 06:00 08:50 WBC RBC Hgb Hct MCV MCH MCHC RDW Plt Count Neut % (Auto) Lymph % (Auto) [place] % (Auto) Eos % (Auto) Baso % (Auto) Neut # (Auto) Lymph # (Auto) [place] # (Auto) Eos # (Auto) Baso # (Auto) PT INR APTT Sodium Potassium Chloride Carbon Dioxide BUN Creatinine Estimated GFR BUN/Creatinine Ratio Glucose Hemoglobin A1c 5.6 Lactate Calcium Magnesium Total Bilirubin AST ALT Alkaline Phosphatase C-Reactive Protein Total Protein Albumin Globulin Albumin/Globulin Ratio Lipase Procalcitonin Urine Color Urine Appearance Urine pH Ur Specific [place] Urine Protein Urine Glucose (UA) Urine Ketones Urine Occult Blood Urine Nitrate Urine Bilirubin Urine Urobilinogen Ur Leukocyte Esterase Urine RBC Urine WBC Ur Squamous Epith Cells Calcium Oxalate Crystal Urine Bacteria Hyaline Casts Ur Culture Indicated? Stl C. cayetanensis PCR Not detected Stool Rotavirus (PCR) Not detected Stool Adenovirus (PCR) Not detected Stool Astrovirus (PCR) Not detected Stool Cryptosporidium PCR Not detected Stl E.coli Shiga Tox PCR Not detected St Sh/Enteroin Ecoli PCR Not detected Stool E coli O157 PCR Not detected Stl Enterotoxigenic E PCR Not detected Stool EPEC (PCR) Not detected Stl E. histolytica PCR Not detected Stool Giardia Lamblia PCR Not detected Stl P. shigelloides PCR Not detected St Y.enterocolitica PCR Not detected Stool Vibrio (PCR) Not detected Stl Vibrio cholerae PCR Not detected Stl Enteroaggr Ecoli PCR Not detected Stl Norovirus GI/GII PCR Not detected Chlamy pneumoniae PCR Not detected Adenovirus (PCR) Not detected B.parapertussis DNA PCR Not detected Campylobacter (PCR) Not detected C. difficile Tox (PCR) Not detected Coronavirus OC43 (PCR) Not detected Coronavirus HKU1 (PCR) Not detected Coronavirus 229E (PCR) Not detected Coronavirus NL63 (PCR) Not detected Human Metapneumovir PCR Not detected Influenza Type A (PCR) Not detected Influenza Type B (PCR) Not detected M. pneumoniae (PCR) Not detected Parainfluenza 1 (PCR) Not detected Parainfluenza 2 (PCR) Not detected Parainfluenza 3 (PCR) Not detected Parainfluenza 4 (PCR) Not detected RSV (PCR) Not detected Entero/Rhino (PCR) Not detected Salmonella (PCR) Not detected Assessment & Plan Assessment & Plan narrative: Brief progress note: Patient was seen and examined. Patient is hemodynamically stable. Physical exam unchanged. General surgery consulted and believes patient's abdominal pain and CT findings are secondary to viral gastroenteritis and there is no evidence and the patient is not felt to have partial SBO or ileus due to the patient passing flatus and having BMs. Respiratory PCR and GI stool PCR negative. Discontinued IV antibiotics. Plan to place patient on clear liquid diet and slowly advanced as tolerated. Ordered repeat KUB in the morning.
[2019-01-29] MEDS: METOCLOPRAMIDE 10 MG/2 ML INJ 5 MG IV (19:51)
[2019-01-29] MEDS: DOCUSATE 100 MG CAPSULE PO (19:56)
--- NOTE | 2019-01-29 20:16 | PM.EVENT ---
Event Note Date Patient Seen: 01/29/19 Time Patient Seen: 20:16 Event Note: Spoke to general surgery. Made aware that patient has recently had a 1400 ml emesis. There is a concern for possibly distal obstruction. POC discussed. - Start patient on Protonix IV 40 mg b.i.d. - NG tube placement, if patient agrees - Plan for further imaging w/ contrast in a.m.
[2019-01-29] MEDS: PANTOPRAZOLE 40 MG VIAL IV (22:17)
--- NOTE | 2019-01-29 22:58 | PC.NURSE ---
NG tube placed without incident, L nare. 500 mLs out almost immediately.
[2019-01-29] MEDS: LORazepam 2 MG/ML INJ 0.5 MG IV (23:58)
[2019-01-30] VITALS (7 sets, daily range): BP systolic 115–141; BP diastolic 53–75; PULSE 70–95; RESP 16; TEMP 36.4–37.2; O2SAT 93–97
[2019-01-30] MEDS: SODIUM CHLORIDE 0.9% 1,000 ML 100 ML IV ×2 (00:01→08:46)
[2019-01-30] MEDS: KETOROLAC 15 MG/ML VIAL IV ×3 (04:51→20:54)
[2019-01-30] MEDS: SODIUM CHLORIDE 0.9% FLUSH 10 ML IV (04:52)
[2019-01-30] MEDS: LORazepam 2 MG/ML INJ 0.5 MG IV ×3 (05:40→18:58)
[2019-01-30 06:30] LABS: Add Manual Diff / Slide Review NO; Basophils Absolute Auto 100 /uL (0-100); Basophils Percent Auto 0.5 % (0-2); Eosinophils Absolute Auto 200 /uL (0-450); Eosinophils Percent Auto 2.1 % (2-4); Hematocrit 39.8 % (36-46); Hemoglobin 13.1 g/dL (12.0-16.0); Lymphocytes Absolute Auto 2900 /uL (1100-4500); Lymphocytes Percent Auto 25.8 % (25-40); Mean Corpuscular HGB Conc 32.8 % (30-36); Mean Corpuscular Hemoglobin 30.6 PG (26-34); Mean Corpuscular Volume 93.1 fL (80-100); Monocytes Absolute Auto 1300 /uL (0-900); Monocytes Percent Auto 11.2 % (3-14); Neutrophils Absolute Auto 6800 /uL (1500-7000); Neutrophils Percent Auto 60.4 % (50-75); Platelet Count 261 X10^3/uL (150-400); Red Blood Cell Count 4.27 X10^6/uL (4.0-5.2); Red Cell Distribution Width 13.9 % (11.6-14.8); White Blood Cell Count 11.2 X10^3/uL (4.5-11.0)
[2019-01-30 06:40] LABS: BUN Creatinine Ratio 33.3 (6-22); Blood Urea Nitrogen 20 mg/dL (7-17); Calcium 8.9 mg/dL (8.4-10.2); Carbon Dioxide 31 mmol/L (22-32); Chloride 106 mmol/L (98-107); Estimated Glomerular Filt Rate > 60.0 mL/min (>60); Glucose 105 mg/dL (80-110); HEMOLYSIS < 15 (0-50); Potassium 3.6 mmol/L (3.4-5.1); Sodium 144 mmol/L (137-145)
[2019-01-30 07:00] LABS: Procalcitonin < 0.05 ng/mL (<0.5)
--- NOTE | 2019-01-30 08:00 | DI.RAD.S_ITS ---
PROCEDURE: XR KUB INDICATIONS: N/V SBO? TECHNIQUE: One view of the abdomen acquired. COMPARISON: [facility], CR, XR KUB, 01/29/2019, 7:56. FINDINGS: Surgical changes and devices: A nasogastric tube has been placed in the interim with the tip overlying the expected location of the body of the stomach. Bowel: The bowel gas pattern appears to be within normal limits. No air filled small bowel loops are identified. The amount of stool within the colon appears to be within normal limits, but is not well evaluated. Soft tissues: No suspicious abdominal calcifications. Visualized solid organ contours appear normal in size. Bones: No suspicious bony lesions. IMPRESSION: Improved bowel gas pattern. No evidence of a small bowel obstruction. Dictated by: Kirit Brady M.D. on 01/30/2019 at 7:46 Approved by: Kirit Brady M.D. on 01/30/2019 at 7:47
[2019-01-30] MEDS: PANTOPRAZOLE 40 MG VIAL IV ×2 (08:41→20:49)
--- NOTE | 2019-01-30 10:07 | PM.PN.1 ---
Subjective Subjective Date Patient Seen: 01/30/19 Interval history: Akiko Corrales is a 68-year-old female with a past medical history significant for pancreatic mass (dx 2007, s/p fine-needle aspiration biopsy with concern for potential malignancy) partial pancreatectomy and splenectomy; SBO (last SBO 6 yrs ago which spontaneously resolved without surgical intervention); and diverticulitis requiring partial colectomy who presented to the ED with abrupt onset epigastric/periumbilical abdominal pain radiating to both left and right flank and posterior left and right aspects of the back. The patient is resting comfortably in bed. She endorses mild headache for which she requests Valium. She has mild mid center abdominal discomfort with palpation but otherwise denies abdominal pain, nausea or vomiting. She also has mild discomfort around the NG tube. She is passing flatus but has not had a bowel movement since yesterday. She has no other complaints and denies shortness of breath, chest pain, abdominal pain, nausea, vomiting, fever, chills, dysuria, diarrhea or constipation. She is voiding and eliminating without difficulty. She is up ambulating without assistance. Exam Vital Signs (past 8 hours): - 01/30/19 05:43 01/30/19 08:32 Temperature 97.6 F 98 F Pulse Rate 70 95 H Respiratory Rate 16 16 Blood Pressure 126/74 136/75 Pulse Oximetry 95 95 Oxygen Delivery Method Room Air Oxygen Flow Rate 0 Narrative Exam Narrative: General: Older female sitting in bed and in no acute distress, well-developed, well-nourished, mildly anxious but otherwise appropriately interactive. HEENT: Normocephalic, atraumatic. External ears without defect. Pupils equal, round, and reactive to light. Anicteric sclerae, moist conjunctivae, and no lid lag. NG tube in place. Neck: Supple with full range of motion. No lymphadenopathy or thyromegaly. Cardiovascular: Regular rate and rhythm without murmurs, rubs, or gallops appreciated Pulmonary: Clear to auscultation bilaterally without crackles, wheezes, or rhonchi. Normal respiratory effort with no use of accessory muscles. Abdomen: Soft, hypoactive bowel sounds, mild tenderness to palpation in mid abdomen, nondistended. No hepatosplenomegaly or masses appreciated. Extremities: No clubbing, cyanosis, or edema. Skin: Normal temperature, turgor, and texture; no rash, ulcers, or subcutaneous nodules appreciated. Neurological: Cranial nerves grossly intact. Psychiatric: Anxious mood and normal affect. Alert and oriented to person, place, and time. Objective Labs Result Diagrams: 01/30/19 06:15 01/30/19 06:15 Labs: Laboratory Results - last 24 hr 01/29/19 01/30/19 01/30/19 08:50 06:15 06:15 WBC 11.2 H RBC 4.27 Hgb 13.1 Hct 39.8 MCV 93.1 MCH 30.6 MCHC 32.8 RDW 13.9 Plt Count 261 Neut % (Auto) 60.4 Lymph % (Auto) 25.8 [place] % (Auto) 11.2 Eos % (Auto) 2.1 Baso % (Auto) 0.5 Neut # (Auto) 6800 Lymph # (Auto) 2900 [place] # (Auto) 1300 H Eos # (Auto) 200 Baso # (Auto) 100 Sodium 144 Potassium 3.6 Chloride 106 Carbon Dioxide 31 BUN 20 H Creatinine 0.60 Estimated GFR > 60.0 BUN/Creatinine Ratio 33.3 H Glucose 105 Calcium 8.9 Magnesium 2.0 Procalcitonin Stl C. cayetanensis PCR Not detected Stool Rotavirus (PCR) Not detected Stool Adenovirus (PCR) Not detected Stool Astrovirus (PCR) Not detected Stool Cryptosporidium PCR Not detected Stl E.coli Shiga Tox PCR Not detected St Sh/Enteroin Ecoli PCR Not detected Stool E coli O157 PCR Not detected Stl Enterotoxigenic E PCR Not detected Stool EPEC (PCR) Not detected Stl E. histolytica PCR Not detected Stool Giardia Lamblia PCR Not detected Stl P. shigelloides PCR Not detected St Y.enterocolitica PCR Not detected Stool Vibrio (PCR) Not detected Stl Vibrio cholerae PCR Not detected Stl Enteroaggr Ecoli PCR Not detected Stl Norovirus GI/GII PCR Not detected Campylobacter (PCR) Not detected C. difficile Tox (PCR) Not detected Salmonella (PCR) Not detected 01/30/19 06:15 WBC RBC Hgb Hct MCV MCH MCHC RDW Plt Count Neut % (Auto) Lymph % (Auto) [place] % (Auto) Eos % (Auto) Baso % (Auto) Neut # (Auto) Lymph # (Auto) [place] # (Auto) Eos # (Auto) Baso # (Auto) Sodium Potassium Chloride Carbon Dioxide BUN Creatinine Estimated GFR BUN/Creatinine Ratio Glucose Calcium Magnesium Procalcitonin < 0.05 Stl C. cayetanensis PCR Stool Rotavirus (PCR) Stool Adenovirus (PCR) Stool Astrovirus (PCR) Stool Cryptosporidium PCR Stl E.coli Shiga Tox PCR St Sh/Enteroin Ecoli PCR Stool E coli O157 PCR Stl Enterotoxigenic E PCR Stool EPEC (PCR) Stl E. histolytica PCR Stool Giardia Lamblia PCR Stl P. shigelloides PCR St Y.enterocolitica PCR Stool Vibrio (PCR) Stl Vibrio cholerae PCR Stl Enteroaggr Ecoli PCR Stl Norovirus GI/GII PCR Campylobacter (PCR) C. difficile Tox (PCR) Salmonella (PCR) Assessment & Plan Assessment & Plan narrative: Akiko Corrales is a 68-year-old female with a past medical history significant for pancreatic mass (dx 2006, s/p fine-needle aspiration biopsy with concern for potential malignancy) partial pancreatectomy and splenectomy; SBO (last SBO 6 yrs ago which spontaneously resolved without surgical intervention); and diverticulitis requiring partial colectomy who presented to the ED with abrupt onset epigastric/periumbilical abdominal pain radiating to both left and right flank and posterior left and right aspects of the back. 1. Acute abdominal pain secondary to viral gastroenteritis versus functional early small-bowel obstruction, present on admission. Active. -In the setting of gastroenteritis vs. potential SBO. -Patient with mild leukocytosis without left shift likely due to stress response. Lactate normal. -CT abdomen and pelvis with contrast demonstrated segmental wall thickening of the small bowel in the mid abdomen, consistent with nonspecific infectious or inflammatory enteritis; associated mild segmental fluid distension of the small bowel proximal to this level with air- fluid levels consistent with a functional small bowel obstruction or an ileus. -Abdominal series x2 has no evidence of small-bowel obstruction with improving bowel gas pattern. -GI stool PCR negative. Respiratory viral PCR negative. Blood cultures x2 have no growth to date. Antibiotics have been discontinued. -Continue supportive care with pain and nausea control. -General surgery has been consulted, Dr. Concepcion, and we appreciate her time and care of the patient. Plan to continue NPO for bowel rest, NG tube for decompression and small-bowel follow-through when available. Disposition: Patient likely to discharge home in 1-2 days depending on improvement in abdominal pain (gastroenteritis versus SBO) and once able to advance and tolerate a diet.
--- NOTE | 2019-01-30 10:25 | P.PN_ITS ---
Subjective Subjective Date Patient Seen: 01/30/19 Time Patient Seen: 10:26 Interval history: Pt vomited 1400mL last evening. NGT was placed and another 1000mL returned. She feels significant relief after NGT placement. Continues to pass gas and stool. Exam Vital Signs (past 8 hours): - 01/30/19 05:43 01/30/19 08:32 Temperature 97.6 F 98 F Pulse Rate 70 95 H Respiratory Rate 16 16 Blood Pressure 126/74 136/75 Pulse Oximetry 95 95 Oxygen Delivery Method Room Air Oxygen Flow Rate 0 Narrative Exam Narrative: GENERAL: Well groomed and cooperative. Appears stated age. Answers questions promptly and appropriately. Vital signs noted. HENT: Normocephalic, atraumatic. Hearing intact. Oral mucosa is pink and moist. EYES: Conjunctiva pink, sclera white, no periorbital swelling. CARDIOVASCULAR: Regular rate. No pedal edema. RESPIRATORY: Normal respiratory rate, breathing comfortably on room air. GASTROINTESTINAL: Abdomen soft and non-distended; well-healed midline incisional scar, minimal tenderness to palpation in the epigastrium GENITALURINARY: No flank tenderness. MUSCULOSKELETAL: Equal tone and mass bilaterally. SKIN: Warm, dry, soft, appropriate color for ethnicity. No other lesions, rashes, or wounds. NEURO: Alert and Oriented X 3. Good coordination. No sensory deficits, or cognitive issues. PSYCH: Appropriate affect and mood. Objective Imaging Abdominal x-ray: Radiologist's impression: [address] [address] XRay Report Signed Patient: Akiko Corralse [facility]#: [id number] : 2Acct:[id number] Age/Sex: 68 / FDate of Service: 01/30/19 Loc: MQ214-4 Accession Number: [id number] Procedure: XR KUB Ordering Provider: Cheyenne Gamboa D.O. PROCEDURE: XR KUB INDICATIONS: N/V SBO? TECHNIQUE: One view of the abdomen acquired. [facility]. FINDINGS: Surgical changes and devices: A nasogastric tube has been placed in the interim with the tip overlying the expected location of the body of the stomach. Bowel: The bowel gas pattern appears to be within normal limits. No air filled small bowel loops are identified. The amount of stool within the colon appears to be within normal limits, but is not well evaluated. Soft tissues: No suspicious abdominal calcifications. Visualized solid organ contours appear normal in size. Bones: No suspicious bony lesions. IMPRESSION: Improved bowel gas pattern. No evidence of a small bowel obstruction. Dictated by: Kirit Brady M.D. on 01/30/2019 at 7:46 Approved by: Kirit Brady M.D. on 01/30/2019 at 7:47 Labs Result Diagrams: 01/30/19 06:15 01/30/19 06:15 Labs: Laboratory Results - last 24 hr 01/29/19 01/30/19 01/30/19 08:50 06:15 06:15 WBC 11.2 H RBC 4.27 Hgb 13.1 Hct 39.8 MCV 93.1 MCH 30.6 MCHC 32.8 RDW 13.9 Plt Count 261 Neut % (Auto) 60.4 Lymph % (Auto) 25.8 [place] % (Auto) 11.2 Eos % (Auto) 2.1 Baso % (Auto) 0.5 Neut # (Auto) 6800 Lymph # (Auto) 2900 [place] # (Auto) 1300 H Eos # (Auto) 200 Baso # (Auto) 100 Sodium 144 Potassium 3.6 Chloride 106 Carbon Dioxide 31 BUN 20 H Creatinine 0.60 Estimated GFR > 60.0 BUN/Creatinine Ratio 33.3 H Glucose 105 Calcium 8.9 Magnesium 2.0 Procalcitonin Stl C. cayetanensis PCR Not detected Stool Rotavirus (PCR) Not detected Stool Adenovirus (PCR) Not detected Stool Astrovirus (PCR) Not detected Stool Cryptosporidium PCR Not detected Stl E.coli Shiga Tox PCR Not detected St Sh/Enteroin Ecoli PCR Not detected Stool E coli O157 PCR Not detected Stl Enterotoxigenic E PCR Not detected Stool EPEC (PCR) Not detected Stl E. histolytica PCR Not detected Stool Giardia Lamblia PCR Not detected Stl P. shigelloides PCR Not detected St Y.enterocolitica PCR Not detected Stool Vibrio (PCR) Not detected Stl Vibrio cholerae PCR Not detected Stl Enteroaggr Ecoli PCR Not detected Stl Norovirus GI/GII PCR Not detected Campylobacter (PCR) Not detected C. difficile Tox (PCR) Not detected Salmonella (PCR) Not detected 01/30/19 06:15 WBC RBC Hgb Hct MCV MCH MCHC RDW Plt Count Neut % (Auto) Lymph % (Auto) [place] % (Auto) Eos % (Auto) Baso % (Auto) Neut # (Auto) Lymph # (Auto) [place] # (Auto) Eos # (Auto) Baso # (Auto) Sodium Potassium Chloride Carbon Dioxide BUN Creatinine Estimated GFR BUN/Creatinine Ratio Glucose Calcium Magnesium Procalcitonin < 0.05 Stl C. cayetanensis PCR Stool Rotavirus (PCR) Stool Adenovirus (PCR) Stool Astrovirus (PCR) Stool Cryptosporidium PCR Stl E.coli Shiga Tox PCR St Sh/Enteroin Ecoli PCR Stool E coli O157 PCR Stl Enterotoxigenic E PCR Stool EPEC (PCR) Stl E. histolytica PCR Stool Giardia Lamblia PCR Stl P. shigelloides PCR St Y.enterocolitica PCR Stool Vibrio (PCR) Stl Vibrio cholerae PCR Stl Enteroaggr Ecoli PCR Stl Norovirus GI/GII PCR Campylobacter (PCR) C. difficile Tox (PCR) Salmonella (PCR) Assessment & Plan Assessment and plan (1) Small bowel obstruction: Current visit: Yes Status: Acute Assessment & Plan narrative: 68 yo woman with likely proximal SBO. Pt is passing gas and stool, but vomited 1400mL gastric secretions and clear liquids yesterday PM. I have requested an upper GI with small-bowel follow-through to be done today for diagnostic purposes. She may have an adhesive band or an intraluminal process such as an ulcer or mass causing obstruction. I spoke with the radiologist, and they may not be able to do it today due to a problem with the fluoroscopy machine. If they are not able to do it today they will do it 1st thing tomorrow once the fluoro machine is fixed. Meanwhile, she needs to keep the NGT to low suction, ambulate as much as possible, and avoid PO intake. Plan: NPO, NGT to LIWS Ambulate at least 20 minutes TID Ok to clamp NGT for ambulation UGI with SBFT IBAN hold off on any unneeded PO meds (I cancelled bowel regimen) Time Spent With Patient Time with patient: 25 - 35 minutes
--- NOTE | 2019-01-30 13:41 | CM.DPC ---
Addendum entered by Katia Aviles LPN 01/30/19 13:54: Went to room to check in with pt. She was found in bed, eyes closed, snoring lightly. NGT in place with brown liquid noted in the canister. Original Note: DCP: continued: case discussed in Team Rounds with the update that pt with emesis last night: 1400 cc: then placement of NGT with another [address] Alejandro and Dr. Gamboa are conferring. Dr. Alejandro has ordered a diagnostic procedure: machine is apparently down and should be fixed by tomorrow. Admission status: per UR HAYDER Rehman has now been clarified as INPT: as of 01/29. Pt is to continue to mobilize as much as possible. DCP team will be following as full dx and tx plan unfolds.
[2019-01-30] MEDS: SODIUM CHLORIDE 0.9% 1,000 ML 500 ML IV (16:24)
[2019-01-30] MEDS: DEXTROSE 5%-0.9% NS 1,000 ML 100 ML IV (18:52)
--- NOTE | 2019-01-30 21:48 | PC.NURSE ---
Pt received 1000 mL NS bolus this shift and is voiding clear yellow urine, appropriate amounts. She continues to complain of a ONEILL (08/04). She gets some relief from 0.5 mg IVP lorazepam and the Ketorolac IVP.
[2019-01-31] VITALS: BP 127/70; PULSE 77; RESP 16; TEMP 36.7; O2SAT 93
--- NOTE | 2019-01-31 | DI.RAD.S_ITS ---
PROCEDURE: FL SMALL BOWEL FOLLOW THROUGH INDICATIONS: suspected proximal obstruction COMPARISON: None. FINDINGS: KUB: Enteric tube. Preprocedural certified registered nurse practitioner film demonstrates a normal bowel gas pattern. No suspicious abdominal calcifications. Visualized solid organ contours appear normal. No suspicious bony abnormalities. Small bowel: There is normal transit time of barium through the small bowel. Small bowel loops are of normal caliber throughout. Mucosal folds are smooth and of normal thickness. No strictures, intraluminal masses, or extrinsic mass effects are noted. The terminal ileum is identified, and is normal in morphology. IMPRESSION: No evidence of transition point to suggest bowel obstruction. Dictated by: Kranthi Sweeney M.D. on 01/31/2019 at 10:40 Approved by: Kranthi Sweeney M.D. on 01/31/2019 at 10:41
[2019-01-31] MEDS: LORazepam 2 MG/ML INJ 0.5 MG IV (01:13)
[2019-01-31] MEDS: DEXTROSE 5%-0.9% NS 1,000 ML 100 ML IV (05:35)
[2019-01-31 05:58] LABS: Add Manual Diff / Slide Review NO; Basophils Absolute Auto 100 /uL (0-100); Basophils Percent Auto 0.7 % (0-2); Eosinophils Absolute Auto 300 /uL (0-450); Eosinophils Percent Auto 2.6 % (2-4); Hematocrit 38.7 % (36-46); Hemoglobin 12.6 g/dL (12.0-16.0); Lymphocytes Absolute Auto 1900 /uL (1100-4500); Lymphocytes Percent Auto 19.1 % (25-40); Mean Corpuscular HGB Conc 32.5 % (30-36); Mean Corpuscular Volume 92.4 fL (80-100); Monocytes Absolute Auto 900 /uL (0-900); Monocytes Percent Auto 8.9 % (3-14); Neutrophils Absolute Auto 7000 /uL (1500-7000); Neutrophils Percent Auto 68.7 % (50-75); Platelet Count 294 X10^3/uL (150-400); Red Blood Cell Count 4.19 X10^6/uL (4.0-5.2); Red Cell Distribution Width 13.5 % (11.6-14.8); White Blood Cell Count 10.2 X10^3/uL (4.5-11.0)
[2019-01-31 06:00] VITALS: BP 127/79; PULSE 79; RESP 18; TEMP 36.6; O2SAT 95
[2019-01-31 06:07] LABS: Blood Urea Nitrogen 8 mg/dL (7-17); Calcium 8.3 mg/dL (8.4-10.2); Carbon Dioxide 26 mmol/L (22-32); Chloride 106 mmol/L (98-107); Estimated Glomerular Filt Rate > 60.0 mL/min (>60); Glucose 121 mg/dL (80-110); HEMOLYSIS < 15 (0-50); Magnesium 1.8 mg/dL (1.6-2.3); Potassium 3.3 mmol/L (3.4-5.1); Sodium 139 mmol/L (137-145)
[2019-01-31] MEDS: KETOROLAC 15 MG/ML VIAL IV (06:27)
[2019-01-31] MEDS: DEXTROSE 5%-0.45NS W/KCL 40MEQ 1,000 ML 125 MEQ IV (06:59)
[2019-01-31] MEDS: MAGNESIUM SULFATE 2 GM/50 ML PIGGYBACK IV (07:01)
[2019-01-31] MEDS: POTASSIUM CHLORIDE 20 MEQ/15 ML UDC 40 MEQ PO (08:14)
[2019-01-31] MEDS: ENOXAPARIN 40 MG/0.4 ML SYRINGE SUBCUT (08:15)
[2019-01-31] MEDS: PANTOPRAZOLE 40 MG VIAL IV (08:16)
[2019-01-31 08:17] VITALS: O2SAT 95
--- NOTE | 2019-01-31 10:30 | P.PN_ITS ---
Subjective Subjective Date Patient Seen: 01/31/19 Time Patient Seen: 10:30 Interval history: No acute events overnight. Patient uncomfortable due to NG tube. Small-bowel follow-through was completed this morning. Exam Vital Signs (past 8 hours): - 01/31/19 06:00 01/31/19 08:17 Temperature 97.9 F Pulse Rate 79 Respiratory Rate 18 Blood Pressure 127/79 Pulse Oximetry 95 95 Oxygen Delivery Method Room Air Oxygen Flow Rate 0 Narrative Exam Narrative: GENERAL: Alert, comfortable, appears fatigued EYES: Conjunctiva pink, sclera white, no periorbital swelling. CARDIOVASCULAR: Regular rate. No pedal edema. RESPIRATORY: Normal respiratory rate, breathing comfortably on room air. GASTROINTESTINAL: Abdomen soft and non-distended; well-healed midline incisional scar, minimal tenderness to palpation in the epigastrium GENITALURINARY: No flank tenderness. MUSCULOSKELETAL: Equal tone and mass bilaterally. SKIN: Warm, dry, soft, appropriate color for ethnicity. No other lesions, rashes, or wounds. NEURO: Alert and Oriented X 3. No sensory deficits, or cognitive issues. PSYCH: Appropriate affect and mood. Objective Imaging Abdominal x-ray: My impression: Small-bowel follow-through completed this morning, appears entirely normal to me. Radiology read is pending. Labs Result Diagrams: 01/31/19 05:26 01/31/19 05:26 Labs: Laboratory Results - last 24 hr 01/31/19 01/31/19 05:26 05:26 WBC 10.2 RBC 4.19 Hgb 12.6 Hct 38.7 MCV 92.4 MCH 30.0 MCHC 32.5 RDW 13.5 Plt Count 294 Neut % (Auto) 68.7 Lymph % (Auto) 19.1 L [place] % (Auto) 8.9 Eos % (Auto) 2.6 Baso % (Auto) 0.7 Neut # (Auto) 7000 Lymph # (Auto) 1900 [place] # (Auto) 900 Eos # (Auto) 300 Baso # (Auto) 100 Sodium 139 Potassium 3.3 L Chloride 106 Carbon Dioxide 26 BUN 8 Creatinine 0.40 L Estimated GFR > 60.0 BUN/Creatinine Ratio 20.0 Glucose 121 H Calcium 8.3 L Magnesium 1.8 Assessment & Plan Assessment and plan (1) Small bowel obstruction: Problem details: Based on small-bowel follow-through, appears to have resolved Current visit: Yes Status: Acute (2) Abdominal pain: Problem details: Improved Qualifiers: Abdominal location: upper abdomen, unspecified Qualified Code(s): R10.10 - Upper abdominal pain, unspecified Current visit: Yes Status: Acute Assessment & Plan narrative: 68 yo woman admitted with abdominal pain and abnormal CT scan. As of yesterday patient was passing gas and stool, but had vomited 1400mL gastric secretions and clear liquids the prior evening. Yesterday I requested an upper GI with small-bowel follow-through to be done, but due to machinery malfunction they were unable to do imaging study total today. She has had reduced NG tube output, and continues passing gas and stool. The small bowel follow-through appears quite normal. The radiologist has not r jesse yet, but I believe we can proceed as though it is entirely normal. Plan: Okay to remove NG tube Advanced diet to clears, and then advance as tolerated to fulls/soft diet Ambulate at least 20 minutes TID Dispo pending patient tolerates p.o. throughout the day today Please call with any questions or concerns arise This plan was reviewed with the patient's nurse Francine Pt does not need to come to me for follow up unless symptoms persist
[2019-01-31 12:00] VITALS: BP 151/80; PULSE 93; RESP 16; TEMP 36.7; O2SAT 96
--- NOTE | 2019-01-31 12:26 | CM.DPC ---
DCP Cont: Patient is to be discharged home today. Collaborated with hospitalist, Dr. Gamboa, regarding plan. Patient has had some anxiety while here in the hospital, and has asked for anxiety meds. She resides here in [place] with her , Mark. No provider was listed on her face sheet. Met with patient in room, and , Mark. Her primary care provider is in [place], at [facility], named Dorene Yañez, but according to , she will no longer be provider. Mentioned that she would be assigned a different provider. Patient's mentioned that Dr. Hernandez is their neighbor, and has consented to see here here at [facility], but she is still on maternity leave. P: Patient is to go home today, for now, will follow up with PCP at [facility] in [place]. Updated Dr. Gamboa, hospitalist. Nae Borrego RN/[facility]
--- NOTE | 2019-01-31 13:25 | P.DS_ITS ---
History of Present Illness History of Present Illness Date Patient Seen: 01/29/19 Chief complaint: SEVERE STOMACH PAINS AND BACK Narrative: Written by Mike SHAIKH: The patient is a 68-year-old female who presented to the ED with epigastric/periumbilical abdominal pain radiating to both left and right flank and posterior left and right aspects of the back. Symptom onset was acute. No similar abdominal discomfort in the past. Denies experiencing fever and chills. The pain is described as constant (w/variable intensity) and periods of sharp sensation. Associated symptoms include nausea, but no vomiting or diarrhea. Known to have constipation at baseline. Denies abdominal distension or increased belching. Patient is passing gas. She has had a bowel movement this morning and yesterday (01/29). She denies change in pattern of bowel and bladder. Denies hematemesis, rectal bleeding or hematuria. Urine output more concerntrated. Symptoms have taken place after eating dinner. Reports to have consumed 3 slices of pizza prior to onset of symptoms. Symptoms appeared 1 hour after eating. Also, patient has suffered from flu-like symptoms for the past week. Reports increased fatigue. Weight has been stable. 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 Patient is known to have intolerance to multiple antibiotics. History of bursitis after taking Cipro. Denies history of recurrent UTIs. No prior history of cholecystitis, pyelonephritis, or nephrolithiasis. ED presentation & work-up VS: T 97.5F HR 124/67 RR 22 SpO2 98% Labs, 10 4 @ 202 WBC 13.3 Hgb 13.7 Plt 309 PT 12.2 INR 1.1 aPTT 33 Lactate 0.8 Na 141 K 3.5 Cl 103 Ca 10.0 Alb 4.6 Glu 106 CO2 27 BUN 16 Cr 0.5 BUN:Cr 32 AST 31 ALT 19 Alk Phos 75 T. Bili 0.[address] of A/P Segmental wall thickening of the small bowel in the mid abdomen consistent with a non-specific infectious or inflammatory enteritis. There is associated mild segmental fluid distention of the small bowel proximal to this level with air- fluid levels consistent with a functional small bowel obstruction or an ileus. The differential for the thickened loop of small bowel includes a neoplastic pr ocess such as lymphoma but is considered less likely given the inflammatory fat stranding. Gastric wall thickening in the antrum compatible with a non-specific gastritis. Consider correlation with endoscopy. Post-surgical changes consistent with prior colectomy without acute inflammatory changes in the colon. Discharge Providers Provider Date of admission: 01/29/19 00:07 Discharge Date: 01/31/19 Consults: 01/29/19 00:04 Consult to General Surgery Stat Comment: Consulting Provider: Merari Alejandro Reason for consultation: abdominal pain/SBO Has provider been notified: Yes Discharge provider: Cheyenne Gamboa DO Summary Hospital Course Discharge Diagnosis: 1. Acute gastroenteritis, likely viral, present on admission. Resolved. 2. Acute hypokalemia, not present on admission. Resolved. Hospital Course: Akiko Corrales is a 68-year-old female with a past medical history significant for pancreatic mass (dx 2006, s/p fine-needle aspiration biopsy with concern for potential malignancy) partial pancreatectomy and splenectomy; SBO (last SBO 6 yrs ago which spontaneously resolved without surgical intervention); and diverticulitis requiring partial colectomy who presented to the ED with abrupt onset epigastric/periumbilical abdominal pain radiating to both left and right flank and posterior left and right aspects of the back. 1. Acute gastroenteritis, likely viral, present on admission. Resolved. -Patient presented with abrupt onset epigastric and periumbilical abdominal pain with nausea and vomiting. -Patient with mild leukocytosis without left shift likely due to stress re sponse. Lactate normal. GI stool PCR negative. Respiratory viral PCR negative. Blood cultures x2 have no growth to date. Antibiotics were discontinued. -CT abdomen and pelvis with contrast demonstrated segmental wall thickening of the small bowel in the mid abdomen, consistent with nonspecific infectious or inflammatory enteritis; associated mild segmental fluid distension of the small bowel proximal to this level with air- fluid levels consistent with a functional small bowel obstruction or an ileus. -Abdominal series x2 without evidence of small-bowel obstruction and improving bowel gas pattern. -Continued supportive care with IV fluid hydration, bowel rest, pain and nausea control. -General surgery has been consulted, Dr. Concepcion, who performed a small-bowel follow-through which did not demonstrate any transition zone or bowel obstruction. NG tube was removed. Diet was advanced and tolerated well and patient was discharged home. No need for follow-up. 2. Acute hypokalemia, not present on admission. Resolved. -Secondary to hemodilution with IV fluid administration. -Potassium level 3.3. Received potassium chloride 40 mEq x1. Status at Discharge Functional status at discharge: independent ambulation Overall status at discharge: patient is back to baseline Exam Vital Signs (past 8 hours): - 01/31/19 06:00 01/31/19 08:17 01/31/19 12:00 Temperature 97.9 F 98.0 F Pulse Rate 79 93 H Respiratory Rate 18 16 Blood Pressure 127/79 151/80 H Pulse Oximetry 95 95 96 Oxygen Delivery Method Room Air Oxygen Flow Rate 0 Narrative Exam Narrative: General: Older female sitting in bed and in no acute distress, well-developed, well-nourished, mildly anxious but otherwise appropriately interactive. HEENT: Normocephalic, atraumatic. External ears without defect. Pupils equal, round, and reactive to light. Anicteric sclerae, moist conjunctivae, and no lid lag. Neck: Supple with full range of motion. No lymphadenopathy or thyromegaly. Cardiovascular: Regular rate and rhythm without murmurs, rubs, or gallops appreciated Pulmonary: Clear to auscultation bilaterally without crackles, wheezes, or rhonchi. Normal respiratory effort with no use of accessory muscles. Abdomen: Soft, bowel sounds present, nontender, nondistended. No hepatosplenomegaly or masses appreciated. Extremities: No clubbing, cyanosis, or edema. Skin: Normal temperature, turgor, and texture; no rash, ulcers, or subcutaneous nodules appreciated. Neurological: Cranial nerves grossly intact. Psychiatric: Anxious mood and normal affect. Alert and oriented to person, place, and time. Objective Labs Result Diagrams: 01/31/19 05:26 01/31/19 05:26 Labs: Laboratory Results - last 24 hr 01/31/19 01/31/19 05:26 05:26 WBC 10.2 RBC 4.19 Hgb 12.6 Hct 38.7 MCV 92.4 MCH 30.0 MCHC 32.5 RDW 13.5 Plt Count 294 Neut % (Auto) 68.7 Lymph % (Auto) 19.1 L [place] % (Auto) 8.9 Eos % (Auto) 2.6 Baso % (Auto) 0.7 Neut # (Auto) 7000 Lymph # (Auto) 1900 [place] # (Auto) 900 Eos # (Auto) 300 Baso # (Auto) 100 Sodium 139 Potassium 3.3 L Chloride 106 Carbon Dioxide 26 BUN 8 Creatinine 0.40 L Estimated GFR > 60.0 BUN/Creatinine Ratio 20.0 Glucose 121 H Calcium 8.3 L Magnesium 1.8 Discharge Plan Discharge Plan Patient Disposition: Home Discharge comment: You are being discharged home. You likely had a viral gastroenteritis. None of the imaging performed demonstrated small bowel obstruction. You may advanced your diet slowly and as tolerated. You were provided prescriptions for MiraLax (osmotic laxative) 17 g daily and Colace (stool softener) 100 mg twice daily both as needed to keep bowel movements regular and soft. Please avoid constipation. Your also provided prescription for Reglan 5 mg every 6 hours as needed for nausea please use this medication sparingly. Please follow-up with your primary care physician regarding your hospitalization. Discharge Med Rec/Prescriptions Prescriptions: New docusate sodium [Dulcolax Stool Softener (dss)] 100 mg capsule 100 mg PO BID PRN (Reason: constipation) Qty: 60 RF: 0 polyethylene glycol 3350 17 gram/dose powder 17 gram PO DAILY PRN (Reason: constipation) Qty: 119 RF: 0 metoclopramide HCl 5 mg tablet 5 mg PO Q6H PRN (Reason: nausea and vomiting) Qty: 20 RF: 0 Follow up/Referrals: Merari Alejandro MD [Physician] - Provider Discharge Instructions Diet: Diet as Tolerated Diet comment: Clears to soft and advance as tolerated Activity: Activity as tolerated Visit Report/Discharge Packet Instructions: Low-Fiber/Low-Residue Diet, DI for Viral Gastroenteritis -- Adult, Gastroenteritis Diet, Polyethylene Glycol 3350, Metoclopramide Discharges patient from system. Discharge Date/Time: 01/31/19 13:52
== END 2019-01-31 13:52 | disposition home or self-care (01) | DRG 392 ==
LOC: ED 23:48 → AC 01-29 00:59
PROVIDERS: Internal Medicine; Surgery; Admitting Provider Nurse Practitioner Gerontology; Emergency Provider Emergency Medicine; Visit Provider Nurse Practitioner Gerontology
DX: A08.4 Viral intestinal infection, unspecified (principal); E87.6 Hypokalemia
CPT/HCPCS: 36415; 74018; 74177; 74250; 80048; 80053; 81001; 82962; 83036; 83605; 83690; 83735; 84145; 85025; 85610; 85730; 86140; 87040; 87507; 87633; 93005; 96374; 96375; 96376; 99282; 99285; C9113; J1335; J1650; J1885; J2060; J2405; J2765; Q9967

== ENCOUNTER → 2019-04-14 09:12 | Outpatient (CLI) | payer OTHER, SELFPAY ==
[2019-01-29 00:46] VITALS: BMI 24.0
[2019-04-14 11:09] LABS: Add Manual Diff / Slide Review NO; Basophils Absolute Auto 100 /uL (0-100); Basophils Percent Auto 1.1 % (0-2); Eosinophils Absolute Auto 100 /uL (0-450); Eosinophils Percent Auto 1.5 % (2-4); Hematocrit 43.7 % (36-46); Hemoglobin 14.4 g/dL (12.0-16.0); Lymphocytes Absolute Auto 3300 /uL (1100-4500); Lymphocytes Percent Auto 45.2 % (25-40); Mean Corpuscular HGB Conc 32.9 % (30-36); Mean Corpuscular Hemoglobin 30.5 PG (26-34); Mean Corpuscular Volume 92.9 fL (80-100); Monocytes Absolute Auto 800 /uL (0-900); Monocytes Percent Auto 10.5 % (3-14); Neutrophils Absolute Auto 3100 /uL (1500-7000); Neutrophils Percent Auto 41.7 % (50-75); Platelet Count 293 X10^3/uL (150-400); Red Blood Cell Count 4.71 X10^6/uL (4.0-5.2); Red Cell Distribution Width 14.2 % (11.6-14.8); White Blood Cell Count 7.4 X10^3/uL (4.5-11.0)
[2019-04-14 11:16] LABS: Hemoglobin A1C% w Est Avg Glu 5.7 % (4.0-6.0)
[2019-04-14 11:38] LABS: Cholesterol 253 mg/dL (140-199); HDL Cholesterol 67 mg/dL (40-60); LDL Cholesterol Calculated 165 mg/dL (<100); Triglycerides 107 mg/dL (35-150)
== END ==
PROVIDERS: PCP Family Medicine; Visit Provider Family Medicine
DX: Z13.220 Encounter for screening for lipoid disorders (principal); Z90.81 Acquired absence of spleen; Z90.410 Acquired total absence of pancreas
CPT/HCPCS: 36415; 80061; 83036; 85025

== ENCOUNTER → 2019-09-01 06:52 | Outpatient (CLI) | payer OTHER, SELFPAY ==
[2019-01-29 00:46] VITALS: BMI 24.0
[2019-09-01 09:57] LABS: Cholesterol 217 mg/dL (140-199); HDL Cholesterol 61 mg/dL (40-60); LDL Cholesterol Calculated 129 mg/dL (<100); Triglycerides 134 mg/dL (35-150)
[2019-09-01 10:27] LABS: TSH w/ Reflex to FT4 1.38 uIU/mL (0.47-4.68)
== END ==
PROVIDERS: PCP Family Medicine; Referring Provider Family Medicine; Visit Provider Family Medicine
DX: R53.83 Other fatigue (principal); E78.5 Hyperlipidemia, unspecified
CPT/HCPCS: 36415; 80061; 84443

== ENCOUNTER → 2019-10-03 14:16 | Outpatient (CLI) | payer OTHER, SELFPAY ==
[2019-01-29 00:46] VITALS: BMI 24.0
--- NOTE | 2019-10-03 14:26 | DI.CT.S_ITS ---
PROCEDURE: CT ABDOMEN PELVIS W CON INDICATIONS: abd pain, abnormal stools,HX of Diverticulitis TECHNIQUE: After the administration of oral and intravenous contrast, 5 mm thick sections acquired from the diaphragms to the symphysis. 5 mm thick coronal and sagittal reformats were performed. For radiation dose reduction, the following was used: automated exposure control, adjustment of mA and/or kV according to patient size. COMPARISON: [facility], CT, CT ABDOMEN PELVIS W CON, 01/28/2019, 21:36. FINDINGS: Image quality: Excellent. ABDOMEN: Lung bases: Lung bases are clear. Heart size is normal. Solid organs: Liver is normal in size and enhancement. Gallbladder is within normal limits. Biliary system is non-dilated. Pancreas enhances normally. Spleen is absent, as before No adrenal nodules. Kidneys are normal in size and enhancement, without hydronephrosis. Peritoneum and bowel: Stomach, small bowel, and colon loops are normal in caliber and wall thickness. Normal appendix. Anastomotic surgical ernst one within the mid sigmoid colon. No free fluid or air. Nodes and vessels: No retroperitoneal or mesenteric adenopathy. Aorta and inferior vena cava are normal in caliber. Miscellaneous: No ventral hernias. PELVIS: Genitourinary: Bladder wall thickness is normal. Miscellaneous: No inguinal hernias or adenopathy. Bones: No suspicious bony lesions. No vertebral body compression fractures. IMPRESSION: 1. No acute process. No explanation for abdominal pain. 2. Normal appendix. Dictated by: Randy Vazquez M.D. on 10/03/2019 at 16:23 Approved by: Randy Vazquez M.D. on 10/03/2019 at 16:25
[2019-10-03 15:43] LABS: BUN Creatinine Ratio 27.8 (6-22); Blood Urea Nitrogen 15 mg/dL (7-17); Estimated Glomerular Filt Rate > 60.0 mL/min (>60)
== END ==
PROVIDERS: PCP Family Medicine; Referring Provider Family Medicine; Visit Provider Family Medicine
DX: R10.9 Unspecified abdominal pain (principal); R19.5 Other fecal abnormalities
CPT/HCPCS: 74177; 82565; 84520

== ENCOUNTER → 2019-10-18 11:10 | Outpatient (CLI) | payer OTHER, SELFPAY ==
[2019-01-29 00:46] VITALS: BMI 24.0
[2019-10-19 10:54] LABS: COVID19 Sendout NOT DETECTED (Not Detect)
== END ==
PROVIDERS: PCP Family Medicine; Visit Provider Physician Assistant
DX: Z01.812 Encounter for preprocedural laboratory examination (principal)
CPT/HCPCS: 87635

== ENCOUNTER 2019-10-21 07:23 | Day surgery (SDC) | payer OTHER, SELFPAY ==
[2019-01-29 00:46] VITALS: BMI 24.0
[2019-10-21] VITALS (7 sets, daily range): BP systolic 97–118; BP diastolic 53–65; PULSE 57–65; RESP 10–20; TEMP 35.9–36.2; O2SAT 93–100; BMI 24.9
--- NOTE | 2019-10-21 | PATH_ITS ---
[facility] Accession Number: [id number] . 01 Material submitted: . rectum - RECTAL POLYP AT 5CM . 02 Diagnosis: Rectum, Polyp at 5 cm, Biopsy: Tubular adenoma. MRV 10/24/2019 1155 Local . 02 Electronically signed: . Ruth Ann Maoy MD, Pathologist NPI- [id number] . 01 Gross description: . RECTAL POLYP AT 5CM: Received in formalin is 1 fragment(s) of sánchez, soft tissue measuring 0.3 x 0.3 x 0.2 cm submitted entirely in 1 cassette(s) /QBJ 10/22/2019 0250 Local . 02 Pathologist provided ICD-10: D12.8 . 02 CPT . 271223 Performed at: 01 [facility] [address] [facility], [place], [place] [id number] MD aDgo Jane MD Phone: [phone] Performed at: 02 [facility] [address] [place], [place] [id number] MD Ruth Ann Mayo MD Phone: [phone]
[2019-10-21] MEDS: SODIUM CHLORIDE 0.9% 1,000 ML 200 ML IV (07:47)
--- NOTE | 2019-10-21 08:15 | PM.PREOP ---
Pre-operative Note COVID-19 COVID-19 status: Negative Result date/Date tested (Pos, Neg/Pending): 10/18/19 Interval Note History & Physical reviewed/Exam performed by Physician: Yes Changes to H&P: No H&P completed within 30 days and has changed as indicated here:: improved stool output using benefiber ASA Class (for procedural sedation): II
[2019-10-21] MEDS: ONDANSETRON 4 MG/2 ML INJ IV (08:25)
[2019-10-21] MEDS: MIDAZOLAM 5 MG/5 ML VIAL IV (08:25)
[2019-10-21] MEDS: fentaNYL 250 MCG/5 ML INJ IV (08:25)
--- NOTE | 2019-10-21 08:46 | P.OP.ENDO_ITS ---
Operative Date/Time/Diagnoses Date of procedure: 10/21/19 Time of procedure: 08:46 Pre-op diagnosis: change in bowel habits Post-op diagnosis: other (mild diverticulosis; mild to moderate stenosis of rectosigmoid anastomosis; single rectal polyp) Procedure & Clinicians Study performed: Surveillance colonoscopy, removal of rectal polyp with cold forceps Same procedure as scheduled: Yes Indications: History of diverticulitis, history of colon resection, change in bowel habits Surgeon: Merari Alejandro Procedure Notes SCOAP/Timeout: Performed Procedure in detail: The patient was brought to the room and placed in left lateral decubitus position with all bony prominences padded. A time-out was performed and then the patient was given procedural sedation starting with 2 mg of Versed and [100] mcg of fentanyl. Total of 3 mg of Versed and 150 micro g of fentanyl were given for the entire procedure. Vitals were monitored throughout the procedure and remained stable. Once adequately sedated, the procedure was begun. A rectal exam was performed revealing [no abnormalities]. The colonoscope was then introduced to the rectum and advanced to the cecum in the usual fashion. []The cecum was identified by the appendiceal orifice, the mucosal tri-fold, and the ileocecal valve. The scope was then retracted while rotating side to side and examining each mucosal fold. In the sigmoid colon the patient was noted to have anastomosis from her prior resection. The anastomosis was mildly stenotic, about 1.5-2 cm when fully distended. I was able to pass the scope easily. There was no granulation tissue or abnormal a ppearing mucosa at the anastomosis. There were a few diverticula around the area, but no evidence of active diverticulitis. She had a small benign- appearing polyp in the rectum, which was removed with cold forceps. [] At the conclusion of the procedure retroflexion was performed and [small grade 1-2 internal hemorrhoids without stigmata of bleeding were seen]. The scope was then withdrawn from the rectum the procedure was concluded. The patient tolerated the procedure well and was transferred to the PACU in stable condition. Scope withdrawal time: 10 Sedation minutes: 18 Findings: polyp and other findings (Anastomotic stenosis in left colon) Specimen(s): other (Rectal polyp) Complications: none Impression: The patient is constipation and difficulty with bowel movements is likely secondary to stenosis at her rectosigmoid anastomosis. She has had improvement since starting to use a fiber supplement, Benefiber. If she is clinically fine, I would not recommend any surgery, but if she has worsening or ongoing symptoms, I would consider surgery to revise her colon resection. Post-procedure Recommendations: Colonscopy in 5 years (Due to history of colon polyps) and Other recommendation (Follow-up for discussion of endoscopy findings and surgical intervention if desired) Follow up: as needed Disposition: PACU
== END 2019-10-21 10:00 | disposition home or self-care (01) ==
PROVIDERS: PCP Family Medicine; Referring Provider Surgery; Visit Provider Surgery
PROC: 0DJD8ZZ Inspection of Lower Intestinal Tract, Via Natural or Artificial Opening Endoscopic (ICD-10-PCS; CPT 45378; principal; 2019-10-21 08:30)
DX: R19.4 Change in bowel habit (principal); K57.30 Diverticulosis of large intestine without perforation or abscess without bleeding; Z90.49 Acquired absence of other specified parts of digestive tract; D12.8 Benign neoplasm of rectum
CPT/HCPCS: 45380; 99152; J2250; J2405; J3010

== ENCOUNTER → 2020-06-06 11:53 | Outpatient (CLI) | payer OTHER, SELFPAY ==
[2019-01-29 00:46] VITALS: BMI 24.0
--- NOTE | 2020-06-06 11:54 | DI.MG.S_ITS ---
BILATERAL DIGITAL SCREENING MAMMOGRAM 3D/2D WITH CAD: 06/06/2020 CLINICAL: Routine screening. Comparison is made to exams dated: 07/30/2018 mammogram, 09/11/2016 mammogram, and 01/16/2015 mammogram - outside location. The tissue of both breasts is predominantly fatty. Current study was also evaluated with a Computer Aided Detection (CAD) system. There are benign calcifications in both breasts. No significant masses, calcifications, or other findings are seen in either breast. There has been no significant interval change. IMPRESSION: BENIGN There is no mammographic evidence of malignancy. A 1 year screening mammogram is recommended. This exam was interpreted at Station ID: [id number]. NOTE: For mammograms, a report in lay terms will be sent to the patient. Approximately 15% of breast malignancies will not be visualized mammographically. In the management of a palpable breast mass, a negative mammogram must not discourage biopsy of a clinically suspicious lesion. Electronically Signed By: Henrique Roland acr/penrad:06/06/2020 13:42:27 letter sent: Normal Exam ACR BI-RADS Category 2: Benign Finding(s) 3342F
== END ==
PROVIDERS: PCP Family Medicine; Referring Provider Family Medicine; Visit Provider Family Medicine
DX: Z12.31 Encounter for screening mammogram for malignant neoplasm of breast (principal)
CPT/HCPCS: 77063; 77067

== ENCOUNTER → 2021-02-06 09:29 | Outpatient (CLI) | payer OTHER, SELFPAY ==
[2019-01-29 00:46] VITALS: BMI 24.0
[2021-02-06 11:39] LABS: COVID-19 CEPHEID PCR (VTM/NP) Negative (Negative)
== END ==
PROVIDERS: PCP Family Medicine; Visit Provider Nurse Practitioner
DX: Z20.822 Contact with and (suspected) exposure to COVID-19 (principal)
CPT/HCPCS: C9803; U0003

== ENCOUNTER 2021-04-30 10:34 | Emergency (ER) | payer OTHER, SELFPAY ==
[2019-01-29 00:46] VITALS: BMI 24.0
[2021-04-30 10:47] VITALS: BP 137/63; PULSE 65; RESP 18; TEMP 36.3; O2SAT 99; BMI 24.9
--- NOTE | 2021-04-30 10:50 | DI.RAD.S_ITS ---
PROCEDURE: XR WRIST RT MIN 3V INDICATIONS: slip and fall. TECHNIQUE: 3 views of the wrist were acquired. COMPARISON: [facility], CR, XR FOREARM RT 2V, 04/30/2021, 12:01. [facility], CR, XR ELBOW RT MIN 3V, 04/30/2021, 12:01. FINDINGS: Bones: There is a mildly impacted fracture seen involving the distal radius, with intra-articular involvement. There is minimal dorsal angulation, yet this is not well seen on the lateral view. There is a minimally displaced ulnar styloid fracture. Degenerative changes are seen throughout, which are most prominent involving the 1st carpometacarpal joint. Milder degenerative changes are seen elsewhere. Soft tissues: Generalized associated soft tissue swelling is seen. IMPRESSION: Distal radius fracture, with intra-articular involvement. Dictated by: Tyrone Weller M.D. on 04/30/2021 at 10:20 Approved by: Tyrone Weller M.D. on 04/30/2021 at 10:21
--- NOTE | 2021-04-30 10:50 | DI.RAD.S_ITS ---
PROCEDURE: XR ELBOW RT MIN 3V INDICATIONS: slip and fall. TECHNIQUE: 3 views of the elbow were acquired. COMPARISON: None. FINDINGS: Bones: No fractures or dislocations. No suspicious bony lesions. Soft tissues: No elbow joint effusion. No suspicious soft tissue calcifications. IMPRESSION: No acute elbow fracture or dislocation. No elbow joint effusion. Dictated by: Deejay Watt M.D. on 04/30/2021 at 11:21 Approved by: Deejay Watt M.D. on 04/30/2021 at 11:21
--- NOTE | 2021-04-30 10:50 | DI.RAD.S_ITS ---
PROCEDURE: XR FOREARM RT 2V INDICATIONS: slip and fall. TECHNIQUE: 2 views of the forearm were acquired. COMPARISON: None. FINDINGS: Bones: Impacted fracture involving distal radius is seen with fracture line extending to radiocarpal joint space. No significant displacement or angulation is seen. Subtle nondisplaced fracture involving ulnar styloid tip is also seen.. No suspicious bony lesions. Soft tissues: No suspicious soft tissue calcifications or masses. IMPRESSION: Slightly impacted intra-articular fracture of distal radius and subtle nondisplaced fracture involving ulnar styloid tip. Wrist soft tissue swelling. Dictated by: Deejay Watt M.D. on 04/30/2021 at 11:15 Approved by: Deejay Watt M.D. on 04/30/2021 at 11:16
[2021-04-30] MEDS: HYDROCODONE/ACET 5/325 TABLET 1 TAB PO ×2 (12:12→13:44)
[2021-04-30] MEDS: ONDANSETRON 4 MG ODT SL (12:13)
--- NOTE | 2021-04-30 13:06 | ED_ITS ---
HPI - Extremity Injury (Upper) <HAWA Kong - Last Filed: 04/30/21 13:49> General Chief Complaint: Extremity Injury, Upper Stated Complaint: slipped on ice hurt RT arm Time Seen by Provider: 04/30/21 12:04 Source: patient Mode of arrival: Ambulatory History of Present Illness HPI narrative: 70-year-old female [place] the park this [place] and slipped on ice and fell on her outstretched right hand. She is complaining of pain at her right wrist, she is right handed, denies any elbow pain, proximal forearm pain, or hand pain. She does not have any open wounds, she denies numbness, tingling, cold hand or any sensation changes. Patient took Motrin and Tylenol prior to her arrival today. Handedness: right Related Data Previous Rx's Medication Instructions Recorded trazodone 50 mg tablet 100 mg PO BEDTIME #180 tab 04/15/21 hydrocodone 5 mg-acetaminophen 325 1 tab PO Q6H PRN #14 tab 04/30/21 mg tablet ondansetron 4 mg disintegrating 4 mg PO Q8H PRN #14 tab 04/30/21 tablet Allergies Allergy/AdvReac Type Severity Reaction Status Date / Time Penicillins [PENICILLINS] Allergy Intermediate RASH Verified 04/30/21 10:49 ciprofloxacin [From CIPRO] AdvReac Mild NAUSEA, Verified 04/30/21 10:49 BURSITIS metronidazole [From Flagyl] AdvReac Mild Nausea Verified 04/30/21 10:49 Review of Systems <HAWA Kong - Last Filed: 04/30/21 13:49> Review of Systems Narrative: General: denies fever, chills Head/Neck: denies headache, neck pain Eyes: denies visual changes, eye pain Cardio: denies chest pain, palpitations Respiratory: denies shortness of breath, cough GI: denies abdominal pain, nausea, vomiting, or diarrhea : denies dysuria, hematuria MSK: denies joint pain, muscle weakness, endorses right wrist pain which is significant Skin: denies rash, itching Neuro: denies numbness, tingling Patient History <HAWA Kong - Last Filed: 04/30/21 13:49> Medical History Bursitis Diverticulosis GERD (gastroesophageal reflux disease) Pancreatic mass Surgical History Anesthesia History of bowel resection (~2014) History of pancreatectomy (~2007) History of splenectomy (~2007) Status post delivery Status post endometrial ablation Status post hernia repair Family History Father Heart disease Mother No known health problems Family/Other Mental health problem Social History marital status: number of children: 2 household members: spouse lives independently: Yes caregiver/support person: No housing: house Smoking Status: Former smoker second hand exposure: No alcohol intake: current substance use type: does not use Smoking Status: Former smoker alcohol intake frequency: a few times a month Substance Use Type: does not use Exam <HAWA Kong - Last Filed: 04/30/21 13:49> Narrative Exam Narrative: Independently reviewed vitals signs and nursing notes. General: Awake, alert, nontoxic, no cardiorespiratory distress Head/Neck: Atraumatic, neck full range of motion Eyes: EOMI, conjunctiva normal Nose: nares patent, no rhinorrhea Mouth/Throat: moist mucus membranes, posterior pharynx normal, no oral lesions Cardio: Regular rate and rhythm, no peripheral edema Respiratory: respirations unlabored without wheezing, stridor, or rales. No retractions. GI: Abdomen soft, nontender MSK: Moves all extremities, neurovascularly intact, right wrist with mild edema, tenderness over distal radius, no ulnar tenderness to palpation, CSM intact to all of her fingers in her right hand, snuffbox tenderness was present on the right hand, no tenderness over metacarpals. Skin: Normal capillary refill, no rash Neuro: Normal speech and cognition, normal gait Initial Vital Signs Initial Vital Signs: Vital Signs Temperature 97.3 F L 04/30/21 10:47 Pulse Rate 65 04/30/21 10:47 Respiratory Rate 18 04/30/21 10:47 Blood Pressure 137/63 04/30/21 10:47 Pulse Oximetry 99 04/30/21 10:47 <Indu Saldivar MD - Last Filed: 04/30/21 19:06> Initial Vital Signs Initial Vital Signs: Vital Signs Temperature 97.3 F L 04/30/21 10:47 Pulse Rate 65 04/30/21 10:47 Respiratory Rate 18 04/30/21 10:47 Blood Pressure 137/63 04/30/21 10:47 Pulse Oximetry 99 04/30/21 10:47 Procedures <HAWA Kong - Last Filed: 04/30/21 13:49> Orthopedic Splinting/Casting Injury #1: Side: right Upper Extremity Injury Location: forearm and wrist Upper Extremity Immobilizer: sling/shoulder immobilizer and sugar tong splint Post splinting neuro exam: intact Post splinting vascular exam: intact Placed by: Nursing Course <HAWA Kong - Last Filed: 04/30/21 13:49> Orders Ordered: ED Orders 04/30/21 10:50 XR elbow RT min 3V Stat XR forearm RT 2V Stat XR wrist RT min 3V Stat 04/30/21 13:18 Consult to Orthopedic Surgery Stat Discontinued Medications Hydrocodone Bitart/Acetaminophen (Hydrocodone/Acet 5/325 Tablet) 1 tab PO NOW ONE Stop: 04/30/21 12:05 Last Admin: 04/30/21 12:12 Dose: 1 tab Documented by: MUKUL Hydrocodone Bitart/Acetaminophen (Hydrocodone/Acet 5/325 Tablet) 1 tab PO NOW ONE Stop: 04/30/21 13:37 Last Admin: 04/30/21 13:44 Dose: 1 tab Documented by: MARIZA Ondansetron HCl (Ondansetron 4 Mg Odt) 4 mg SL NOW ONE Stop: 04/30/21 12:05 Last Admin: 04/30/21 12:13 Dose: 4 mg Documented by: MUKUL Vital Signs Vital signs: Vital Signs - 8 hr 04/30/21 10:47 Temperature 97.3 F L Pulse Rate 65 Respiratory Rate 18 Blood Pressure 137/63 Pulse Oximetry 99 <Indu Saldivar MD - Last Filed: 04/30/21 19:06> Orders Ordered: ED Orders 04/30/21 10:50 XR elbow RT min 3V Stat XR forearm RT 2V Stat XR wrist RT min 3V Stat 04/30/21 13:18 Consult to Orthopedic Surgery Stat Discontinued Medications Hydrocodone Bitart/Acetaminophen (Hydrocodone/Acet 5/325 Tablet) 1 tab PO NOW ONE Stop: 04/30/21 12:05 Last Admin: 04/30/21 12:12 Dose: 1 tab Documented by: MUKUL Hydrocodone Bitart/Acetaminophen (Hydrocodone/Acet 5/325 Tablet) 1 tab PO NOW ONE Stop: 04/30/21 13:37 Last Admin: 04/30/21 13:44 Dose: 1 tab Documented by: MARIZA Ondansetron HCl (Ondansetron 4 Mg Odt) 4 mg SL NOW ONE Stop: 04/30/21 12:05 Last Admin: 04/30/21 12:13 Dose: 4 mg Documented by: MUKUL Vital Signs Vital signs: Vital Signs - 8 hr 04/30/21 10:47 Temperature 97.3 F L Pulse Rate 65 Respiratory Rate 18 Blood Pressure 137/63 Pulse Oximetry 99 MDM - Extremity Injury (Upper) <Ruth Ann Manley [facility] - Last Filed: 04/30/21 13:49> Imaging Data Extremity x-ray #1: Radiologist's Impression: PROCEDURE:? XR WRIST RT MIN 3V ? INDICATIONS: slip and fall. ? TECHNIQUE:? 3 views of the wrist were acquired.? ? COMPARISON:? [facility], CR, XR FOREARM RT 2V, 04/30/2021, 12:01.? [facility], CR, XR ELBOW RT MIN 3V, 04/30/2021, 12:01. ? FINDINGS:? ? Bones:? There is a mildly impacted fracture seen involving the distal radius, with intra-articular involvement.? There is minimal dorsal angulation, yet this is not well seen on the lateral view. ? There is a minimally displaced ulnar styloid fracture. ? Degenerative changes are seen throughout, which are most prominent involving the 1st carpometacarpal joint.? Milder degenerative changes are seen elsewhere.? ? Soft tissues:? Generalized associated soft tissue swelling is seen. ? ? IMPRESSION:? Distal radius fracture, with intra-articular involvement. ? ? Dictated by: Tyrone Weller M.D. on 04/30/2021 at 10:20 ? ? Approved by: Tyrone Weller M.D. on 04/30/2021 at 10:21 ? Extremity x-ray #2: Radiologist's Impression: PROCEDURE:? XR ELBOW RT MIN 3V ? INDICATIONS:? slip and fall. ? TECHNIQUE:? 3 views of the elbow were acquired.? ? COMPARISON:? None. ? FINDINGS:? ? Bones:? No fractures or dislocations.? No suspicious bony lesions.? ? Soft tissues:? No elbow joint effusion.? No suspicious soft tissue calcifications.? ? ? IMPRESSION:? No acute elbow fracture or dislocation.? No elbow joint effusion. ? ? Dictated by: Deejay Watt M.D. on 04/30/2021 at 11:21 ? ? Approved by: Deejay Watt M.D. on 04/30/2021 at 11:21 ? Extremity x-ray #3: Radiologist's Impression: PROCEDURE:? XR FOREARM RT 2V ? INDICATIONS:? slip and fall. ? TECHNIQUE:? 2 views of the forearm were acquired.? ? COMPARISON:? None. ? FINDINGS:? ? Bones:? Impacted fracture involving distal radius is seen with fracture line extending to radiocarpal joint space.? No significant displacement or angulation is seen.? Subtle nondisplaced fracture involving ulnar styloid tip is also seen..? No suspicious bony lesions.? ? Soft tissues:? No suspicious soft tissue calcifications or masses.? ? ? IMPRESSION:? Slightly impacted intra-articular fracture of distal radius and subtle nondisplaced fracture involving ulnar styloid tip.? Wrist soft tissue swelling. ? ? Dictated by: Deejay Watt M.D. on 04/30/2021 at 11:15 ? ? Approved by: Deejay Watt M.D. on 04/30/2021 at 11:16 ? MDM Narrative Medical decision making narrative: [age] year female was at the park this morning when she slipped ice and fell down with outstretched hand onto the palmar aspect of her right palm fracturing her distal radius. Patient has a impacted fracture involving the distal radius with fracture line extending to the radio carpal joint space without displacement or angulation. X-ray also showed soft tissue swelling. Patient was referred to Dr. Gama with Orthopedics, he was consulted and recommended a reverse sugar-tong splint. This was completed by the mail carrier technician, CSM was intact distally, patient had moderate pain and was given hydrocodone and Zofran with moderate relief of her pain. They understand to follow up with Orthopedics, she was also fitted in the sling and tolerated this well. Patient is appropriate and amenable to discharge home. Vital signs are stable on repeat examination is unremarkable. Patient has been informed of results. Patient has been given strict return to ER precautions for any new or worsening symptoms. Patient understands to follow up closely with outpatient providers as instructed. Patient understands plan and agrees to discharge home. All questions and concerns answered at this time. Discharge Plan Departure Patient Disposition: Home Clinical Impression: Fall Radius distal fracture Qualifiers: Encounter type: initial encounter Fracture type: closed Laterality: right Instructions: DI for Distal Radius Fracture Activity Restrictions/Additional Instructions: *You have been diagnosed with a distal radial fracture. I am sorry for injury, this can be quite painful. Please call the orthopedic office tomorrow and schedule an appointment for follow-up within 1 week. [facility] has an office on [email or web address] [place]. Please use ice, ibuprofen if you can tolerate it, your pain pills, and elevation on a pillow at minimum or in your sling to to reduce swelling and worsening pain. Your breakthrough pain medicine with called in to [facility] as well as [facility] for nausea. If your pain is not controlled on these medications please return to the emergency department for another evaluation. If you develop numbness or tingling in your fingers or you do not have any sensation in there cold please also return for another evaluation. Wishing you the best. *What to do: *Please continue to take your regular medications as directed. [x ] New medication prescriptions sent to your pharmacy: [ [facility] [place]] [ ] New medication written as a paper prescription [ ] No new medications given *Please follow up with your primary care provider in 2-3 days, call for an appointment. Let them know you were seen in the Emergency Department and that we ask that you be seen in follow up. We will electronically transmit a record of today's note if your PCP is in our system *If you do not have a primary care provider please contact the [facility] Resource line at [phone]. They will ask some questions about your medical history and help get you set up with a doctor in the community. *Return to Emergency Department if you should have any new, worsening or concerning symptoms, such as [fever greater than 101F, chills, worsening pain, persistent vomiting or other bothersome symptoms] Prescriptions: New hydrocodone-acetaminophen 5-325 mg tablet 1 tab PO Q6H PRN (Reason: pain) Qty: 14 0RF ondansetron 4 mg tablet,disintegrating 4 mg PO Q8H PRN (Reason: nausea and vomiting) Qty: 14 0RF No Action trazodone 50 mg tablet 100 mg PO BEDTIME Qty: 180 3RF Rx Instructions: Take 2 tablets by mouth at bedtime for sleep. Referrals: Johanna Hernandez MD [Primary Care Provider] - Van Gama MD [Physician] - 5-7 days <Indu Saldivar MD - Last Filed: 04/30/21 19:06> Cosign ED Attending Cosignature Attestation: I was immediately available in the department for consultation throughout this patient's visit. I agree with documentation as above. Indu Saldivar MD
--- NOTE | 2021-04-30 13:42 | PC.NURSE ---
Sugar tong splint done by this INTELLIGENCE AGENT. Approved by pt's provider.
== END 2021-04-30 13:47 | disposition home or self-care (01) ==
PROVIDERS: Emergency Provider Nurse Practitioner Critical Care Medicine; PCP Family Medicine
DX: S52.501A Unspecified fracture of the lower end of right radius, initial encounter for closed fracture (principal); W00.0XXA Fall on same level due to ice and snow, initial encounter
CPT/HCPCS: 73080; 73090; 73110; 99283

== ENCOUNTER → 2021-05-09 10:07 | Outpatient (CLI) | payer OTHER, SELFPAY ==
[2019-01-29 00:46] VITALS: BMI 24.0
--- NOTE | 2021-05-09 | DI.CT.S_ITS ---
PROCEDURE: CT UE RT WO CON INDICATIONS: Other intraarticular fracture of lower end of right radius, TECHNIQUE: Noncontrast 1 mm axial sections acquired through the carpal bones, with coronal and sagittal reformats. COMPARISON: [facility], CR, XR WRIST RT MIN 3V, 04/30/2021, 12:01. FINDINGS: Image quality: Excellent. Bones: As seen on previous wrist radiograph, again noted is a comminuted and impacted fracture involving distal radius with fracture line extending to radiocarpal joint space. Minimal medial displacement of a fractured fragment is seen. There is also minimal lateral displacement at radial styloid fracture site. Subtle nondisplaced fracture involving tip of ulnar styloid is also noted. No other fracture or dislocation is seen. No suspicious intraosseous lesion. Mild wrist joint osteoarthritic changes are seen more prominent involving radiocarpal joint and 1st CMC joint. Soft tissues: Wrist soft tissue swelling is seen. No abnormal soft tissue calcifications. No significant joint effusion or intra-articular loose bodies. No full-thickness wrist tendon rupture. IMPRESSION: 1. Acute to subacute appearing comminuted and minimally displaced intra-articular fracture of right distal radius as above. Nondisplaced fracture involving right ulnar styloid tip. No other fracture or dislocation. No suspicious bony lesion. 2. Mild wrist joint osteoarthritis. 3. Mild soft tissue swelling surrounding distal radial fracture site. No abnormal soft tissue calcifications or significant joint effusion. Dictated by: Deejay Watt M.D. on 05/09/2021 at 11:33 Approved by: Deejay Watt M.D. on 05/09/2021 at 11:37
== END ==
PROVIDERS: PCP Family Medicine; Referring Provider Physician Assistant; Visit Provider Physician Assistant
DX: S52.571A Other intraarticular fracture of lower end of right radius, initial encounter for closed fracture (principal); S52.614A Nondisplaced fracture of right ulna styloid process, initial encounter for closed fracture; M19.031 Primary osteoarthritis, right wrist
CPT/HCPCS: 73200

== ENCOUNTER → 2021-05-24 07:21 | Outpatient (CLI) | payer OTHER, SELFPAY ==
[2019-01-29 00:46] VITALS: BMI 24.0
[2021-05-24 08:33] LABS: Cholesterol 161 mg/dL (140-199); Glucose 88 mg/dL (80-110); HDL Cholesterol 49 mg/dL (40-60); LDL Cholesterol Calculated 91 mg/dL (<100); Triglycerides 104 mg/dL (35-150)
[2021-05-24 09:03] LABS: TSH w/ Reflex to FT4 0.87 uIU/mL (0.47-4.68)
== END ==
PROVIDERS: PCP Family Medicine; Referring Provider Family Medicine; Visit Provider Family Medicine
DX: Z13.1 Encounter for screening for diabetes mellitus (principal); Z13.29 Encounter for screening for other suspected endocrine disorder; K59.00 Constipation, unspecified; Z13.220 Encounter for screening for lipoid disorders
CPT/HCPCS: 36415; 80061; 82947; 84443

== ENCOUNTER → 2021-06-07 11:19 | Outpatient (CLI) | payer OTHER, SELFPAY ==
[2019-01-29 00:46] VITALS: BMI 24.0
--- NOTE | 2021-06-07 | DI.MG.S_ITS ---
BILATERAL DIGITAL SCREENING MAMMOGRAM 3D/2D WITH CAD: 06/07/2021 CLINICAL: Routine screening. Comparison is made to exams dated: 06/06/2020 mammogram - [facility], 07/30/2018 mammogram, and 09/11/2016 mammogram - outside location. The tissue of both breasts is heterogeneously dense. This may lower the sensitivity of mammography. Current study was also evaluated with a Computer Aided Detection (CAD) system. The patient is status post reduction both breasts. Both breasts have post-operative findings. No significant masses, calcifications, or other findings are seen in either breast. IMPRESSION: NEGATIVE There is no mammographic evidence of malignancy. A 1 year screening mammogram is recommended. This exam was interpreted at Station ID: [id number]. NOTE: For mammograms, a report in lay terms will be sent to the patient. Approximately 15% of breast malignancies will not be visualized mammographically. In the management of a palpable breast mass, a negative mammogram must not discourage biopsy of a clinically suspicious lesion. Electronically Signed By: Huan mendez/del:06/07/2021 15:10:03 letter sent: Normal Exam ACR BI-RADS Category 1: Negative [id number]
== END ==
PROVIDERS: PCP Family Medicine; Referring Provider Family Medicine; Visit Provider Family Medicine
DX: Z12.31 Encounter for screening mammogram for malignant neoplasm of breast (principal)
CPT/HCPCS: 77063; 77067

== ENCOUNTER 2021-07-18 21:36 | Inpatient (IN) | payer OTHER, SELFPAY ==
[2019-01-29 00:46] VITALS: BMI 24.0
[2021-07-18 21:37] VITALS: BP 165/81; PULSE 82; RESP 18; TEMP 36.8; O2SAT 97; BMI 23.5
[2021-07-18] MEDS: ONDANSETRON 4 MG/2 ML INJ (22:02)
[2021-07-18 22:07] LABS: Add Manual Diff / Slide Review NO; Basophils Absolute Auto 100 /uL (0-100); Basophils Percent Auto 0.9 % (0-2); Eosinophils Absolute Auto 200 /uL (0-450); Hematocrit 43.3 % (36-46); Hemoglobin 14.3 g/dL (12.0-16.0); Lymphocytes Absolute Auto 4300 /uL (1100-4500); Lymphocytes Percent Auto 29.1 % (25-40); Mean Corpuscular HGB Conc 33.1 % (30-36); Mean Corpuscular Hemoglobin 30.8 PG (26-34); Mean Corpuscular Volume 93.2 fL (80-100); Monocytes Absolute Auto 1200 /uL (0-900); Monocytes Percent Auto 8.1 % (3-14); Neutrophils Absolute Auto 9100 /uL (1500-7000); Neutrophils Percent Auto 60.9 % (50-75); Platelet Count 290 X10^3/uL (150-400); Red Blood Cell Count 4.65 X10^6/uL (4.0-5.2); Red Cell Distribution Width 14.9 % (11.6-14.8); White Blood Cell Count 14.9 X10^3/uL (4.5-11.0)
[2021-07-18 22:10] VITALS: BP 147/73; PULSE 66; RESP 18; O2SAT 99
[2021-07-18 22:41] VITALS: PULSE 80; RESP 25
[2021-07-18 22:42] LABS: Alanine Aminotransferase 17 IU/L (<35); Albumin 4.5 g/dL (3.5-5.0); Albumin Globulin Ratio 1.4 (1.0-2.8); Alkaline Phosphatase 72 U/L (38-126); Aspartate Aminotransferase 28 IU/L (14-36); BUN Creatinine Ratio 34.9 (6-22); Bilirubin Total 0.6 mg/dL (0.2-1.3); Blood Urea Nitrogen 22 mg/dL (7-17); Calcium 9.8 mg/dL (8.4-10.2); Carbon Dioxide 30 mmol/L (22-32); Chloride 103 mmol/L (98-107); Estimated Glomerular Filt Rate > 60.0 mL/min (>60); Globulin 3.2 g/dL (1.7-4.1); Glucose 121 mg/dL (80-110); HEMOLYSIS < 15 (0-50); Lipase 44 U/L (23-300); Potassium 4.6 mmol/L (3.4-5.1); Sodium 140 mmol/L (137-145); Total Protein 7.7 g/dL (6.3-8.2)
[2021-07-18 23:00] VITALS: BP 154/78; PULSE 71; RESP 21; O2SAT 98
[2021-07-18 23:21] LABS: Bacteria Urine None Seen; Culture Indicated Urine Cult Not Indicated; RBC Urine None Seen (0-5/HPF); WBC Urine None Seen (0-5/HPF)
--- NOTE | 2021-07-18 23:24 | ED_ITS ---
HPI - General Adult General Chief complaint: Abdominal Pain Stated complaint: abdominal pain Time Seen by Provider: 07/18/21 23:04 Source: patient Mode of arrival: Ambulatory History of Present Illness HPI narrative: 70-year-old woman with a history of bowel resection in 2014, pancreatic and splenic removal in 2007 prior and hernia repair with history of prior bowel obstructions presents with abdominal pain acutely starting at 6:00 p.m. tonshirin. She describes it as mid epigastric radiating into the left upper quadrant with increasing distention, and increasing nausea but no actual emesis. She has not passed any stool since that time. She notes that she does struggle with chronic constipation and has not had a bowel movement today either. She has not had fevers, chills, cough, palpitations, headache or other signs or symptoms of bacterial superinfection. Related Data Previous Rx's Medication Instructions Recorded trazodone 50 mg tablet 100 mg PO BEDTIME #180 tab 04/15/21 cyclobenzaprine 10 mg tablet 10 mg PO TID PRN #10 tab 05/31/21 meloxicam 7.5 mg tablet 7.5 mg PO DAILY PRN #30 tab 05/31/21 metronidazole 500 mg tablet 500 mg PO TID PRN 10 Days #0 tab 05/31/21 sulfamethoxazole 800 1 tab PO BID PRN 10 Days #0 tab 05/31/21 mg-trimethoprim 160 mg tablet Allergies Allergy/AdvReac Type Severity Reaction Status Date / Time Penicillins [PENICILLINS] Allergy Intermediate RASH Verified 05/31/21 10:50 ciprofloxacin [From CIPRO] AdvReac Mild NAUSEA, Verified 05/31/21 10:50 BURSITIS Review of Systems Review of Systems Narrative: Remainder of complete review of systems is otherwise unremarkable except for that included in the HPI. Patient History Medical History Bursitis Diverticulosis GERD (gastroesophageal reflux disease) Pancreatic mass Surgical History Anesthesia History of bowel resection (~2014) History of pancreatectomy (~2007) History of splenectomy (~2007) Status post delivery Status post endometrial ablation Status post hernia repair Family History Father Heart disease Mother No known health problems Family/Other Mental health problem Social History marital status: number of children: 2 household members: spouse lives independently: Yes caregiver/support person: No housing: house Smoking Status: Former smoker second hand exposure: No alcohol intake: current substance use type: does not use Smoking Status: Former smoker alcohol intake frequency: a few times a month Substance Use Type: does not use Exam Initial Vital Signs Initial Vital Signs: Vital Signs Temperature 98.2 F 07/18/21 21:37 Pulse Rate 82 07/18/21 21:37 Respiratory Rate 18 07/18/21 21:37 Blood Pressure 165/81 H 07/18/21 21:37 Pulse Oximetry 97 07/18/21 21:37 General: In mild distress due to abdominal pain. Able to give a complete and coherent history. HEENT: Moist mucous membranes, normal sclera with reactive pupils, Neck: No JVD, supple Respiratory: Lungs are clear to auscultation, no wheezing no rales no rhonchi. Full and symmetrical air movement Cardiac: Regular rate and rhythm no murmurs no bruits Abdomen: Mild distention, tender in the left upper quadrant without rebound or guarding. No flank pain Skin: Warm and dry, no rashes Neurologic: Grossly neurologically intact with no obvious asymmetries or abnormalities Extremities: No trauma, well perfused Psych: Cooperative, appropriate insight and affect Course Orders Ordered: ED Orders 07/18/21 21:41 EKG-12 Lead Stat 07/18/21 21:55 Complete Blood Count AUTO DIFF Stat 07/18/21 22:17 Comprehensive Metabolic Panel Stat Lipase Stat 07/18/21 22:50 Urine Microscopic Stat 07/18/21 23:44 CT abdomen pelvis w con Stat Hydromorphone HCl (Hydromorphone 0.5 Mg Inj) 0.5 mg IV Q15MIN PRN PRN Reason: Pain, Last Admin: 07/18/21 23:54 Dose: 0.5 mg Documented by: BLU Sodium Chloride (Normal Saline 0.9%) 1,000 mls @ 150 mls/hr IV CONT NICKOLAS Last Admin: 07/18/21 23:57 Dose: 150 mls/hr Documented by: BLU Vital Signs Vital signs: Vital Signs - 8 hr 07/18/21 21:37 07/18/21 22:10 07/18/21 22:41 Temperature 98.2 F Pulse Rate 82 66 80 Respiratory Rate 18 18 25 H Blood Pressure 165/81 H 147/73 H Pulse Oximetry 97 99 07/18/21 23:00 07/18/21 23:30 07/19/21 00:04 Temperature Pulse Rate 71 72 78 Respiratory Rate 21 20 Blood Pressure 154/78 H 140/71 Pulse Oximetry 98 98 95 07/19/21 00:05 Temperature Pulse Rate 78 Respiratory Rate 20 Blood Pressure 138/66 Pulse Oximetry 95 Medical Decision Making Lab Data Result diagrams: 07/18/21 21:55 07/18/21 22:17 Labs: Lab Results 07/18/21 07/18/21 07/18/21 Range/Units 21:55 22:17 22:50 WBC 14.9 H (4.5-11.0) X10^3/uL RBC 4.65 (4.0-5.2) X10^6/uL Hgb 14.3 (12.0-16.0) g/dL Hct 43.3 (36-46) % MCV 93.2 (80-100) fL MCH 30.8 (26-34) PG MCHC 33.1 (30-36) % RDW 14.9 H (11.6-14.8) % Plt Count 290 (150-400) X10^3/uL Neut % (Auto) 60.9 (50-75) % Lymph % (Auto) 29.1 (25-40) % [place] % (Auto) 8.1 (3-14) % Eos % (Auto) 1.0 L (2-4) % Baso % (Auto) 0.9 (0-2) % Neut # (Auto) 9100 H (2724-6316) /uL Lymph # (Auto) 4300 (4575-6082) /uL [place] # (Auto) 1200 H (0-900) /uL Eos # (Auto) 200 (0-450) /uL Baso # (Auto) 100 (0-100) /uL Sodium 140 (137-145) mmol/L Potassium 4.6 (3.4-5.1) mmol/L Chloride 103 (98-107) mmol/L Carbon Dioxide 30 (22-32) mmol/L BUN 22 H (7-17) mg/dL Creatinine 0.63 (0.52-1.04) mg/dL Estimated GFR > 60.0 (>60) mL/min BUN/Creatinine Ratio 34.9 H (6-22) Glucose 121 H (80-110) mg/dL Calcium 9.8 (8.4-10.2) mg/dL Total Bilirubin 0.6 (0.2-1.3) mg/dL AST 28 (14-36) IU/L ALT 17 (<35) IU/L Alkaline Phosphatase 72 (38-126) U/L Total Protein 7.7 (6.3-8.2) g/dL Albumin 4.5 (3.5-5.0) g/dL Globulin 3.2 (1.7-4.1) g/dL Albumin/Globulin Ratio 1.4 (1.0-2.8) Lipase 44 (23-300) U/L Urine RBC None seen (0-5/HPF) Urine WBC None seen (0-5/HPF) Urine Bacteria None seen (None) Ur Culture Indicated? Cult not indicated Urine Dip Bedside Urine Glucose Negative Bedside Urine Bilirubin - Negative Bedside Urine Ketone +/- 5 Urine Specific [place] 1.010 Bedside Urine Occult Blood - Negative Bedside Urine pH 8.0 Bedside Urine Protein +/- 15 Bedside Urine Urobilinogen - Negative Bedside Urine Nitrite - Negative Bedside Urine Leukocytes - Negative Esterase Point of care testing: Urine Dip Bedside Urine Glucose Negative Bedside Urine Bilirubin - Negative Bedside Urine Ketone +/- 5 Urine Specific [place] 1.010 Bedside Urine Occult Blood - Negative Bedside Urine pH 8.0 Bedside Urine Protein +/- 15 Bedside Urine Urobilinogen - Negative Bedside Urine Nitrite - Negative Bedside Urine Leukocytes - Negative Esterase Imaging Data CT scan - abdomen/pelvis: Radiologist's Impression: FINDINGS:? Image quality:? Excellent.? ? Lung bases:? There is minimal scarring in the lung bases.? ? Heart:? Heart is normal in size. ? ABDOMEN: Liver:? There is a small cyst within the left hepatic lobe measuring up to 1.1 cm redemonstrated. Gallbladder:? Within normal limits without calcified gallstones.? ? Biliary ducts:? No biliary ductal dilatation.? ? Pancreas:? Unremarkable.? ? Spleen:? The spleen is absent. Adrenal Glands:? No adrenal nodules.? ? Kidneys and Ureters:? No hydronephrosis.? ? ? Stomach and Bowel:? There is mild gastric wall thickening in the region of the gastric antrum as well as mild wall thickening in the duodenal bulb.? There also segments mild small bowel wall thickening, mucosal enhancement, and fat stranding involving a few bowel loops within the left upper quadrant.? These are associated mildly dilated small bowel loops measuring up to 3.2 cm with air-fluid levels.? More distal small bowel loops nondistended.? The appendix is normal in appearance.? There are surgical sutures within the sigmoid colon. Peritoneum:? No abnormal intraperitoneal fluid.? No free air.? ? Ventral Wall: ? No hernia.? Abdominal Nodes:? No retroperitoneal or mesenteric adenopathy by size criteria.? Vessels:? Aorta and inferior vena cava are normal in size.? ? PELVIS: Pelvic Organs:? Unremarkable.? ? Bladder:? Unremarkable.? ? Pelvic Nodes: No enlarged lymph nodes.? Miscellaneous: No inguinal hernias are seen. ? ? ? Bones:? Visualized osseous structures demonstrate no suspicious focal lesions. ? IMPRESSION:? ? 1. Segmental bowel wall thickening and mucosal enhancement with mild fat stranding involving the jejunum in the left upper quadrant consistent with a nonspecific enteritis, likely infectious or inflammatory. ? 2. Associated dilated segment of small bowel with air-fluid levels likely reflects an associated ileus secondary to the enteritis. ? 3. Mild gastric wall thickening in the antrum as well as mild wall thickening in the duodenum bulb also suggestive of a gastritis/duodenitis.? ? ? Dictated by: Dago Solis M.D. on 07/19/2021 at 0:12 ? ? ECG Data Interpretation: Sinus rhythm at a rate of 71 Normal intervals, normal axis No acute ischemic changes MDM Narrative Medical decision making narrative: 70-year-old woman with a history of spleen and pancreas removal as well as partial colon resection after severe diverticulitis presents with acute abdominal pain most consistent with a small-bowel obstruction. CT scan shows intermittent areas of thickened bowel wall and suggestion of an ileus however I am concerned that there may be an acute twist or an internal hernia that is causing her symptoms. Pain has been controlled with low doses of Dilaudid and nausea has been controlled with low doses of Zofran she has not had any emesis at this point. Prior small-bowel obstructions did eventually resolve with NG tube and conservative management. Care is reviewed with Dr. Spring, general surgeon. His recommendation is admission with fluids pain and nausea control to her primary care doctor and surgery consult. Likely small-bowel follow-through in the morning to further delineate pathology. All of this is reviewed with patient and her . Questions were answered. Patient's primary care physician is Dr. Hernandez and Dr. Fajardo is on-call tonight and will admit patient. Discharge Plan Departure Patient Disposition: Admitted As Inpatient Prescriptions: No Action metronidazole 500 mg tablet 500 mg PO TID PRN (Reason: diverticulitis flare) 10 Days Qty: 0 0RF Rx Instructions: as needed when out on the boat sulfamethoxazole-trimethoprim 800-160 mg tablet 1 tab PO BID PRN (Reason: diverticulitis flare) 10 Days Qty: 0 0RF Rx Instructions: as needed when out on the boat cyclobenzaprine 10 mg tablet 10 mg PO TID PRN (Reason: muscle spasm) Qty: 10 2RF Rx Instructions: as needed when out on the boat meloxicam 7.5 mg tablet 7.5 mg PO DAILY PRN (Reason: pain) Qty: 30 0RF Rx Instructions: As needed when out on the boat trazodone 50 mg tablet 100 mg PO BEDTIME Qty: 180 3RF Rx Instructions: Take 2 tablets by mouth at bedtime for sleep. Referrals: Johanna Hernandez MD [Primary Care Provider] - Admit Date/Time: 07/19/21 00:49
[2021-07-18 23:30] VITALS: BP 140/71; PULSE 72; RESP 20; O2SAT 98
--- NOTE | 2021-07-18 23:44 | DI.CT.S_ITS ---
PROCEDURE: CT ABDOMEN PELVIS W CON INDICATIONS: Abdominal pain, leukocytosis, ? SBO TECHNIQUE: After the administration of IV contrast, axial sections were acquired from the lung bases to the pubic symphysis. Coronal and sagittal reformats were performed. For radiation dose reduction, the following was used: automated exposure control, adjustment of mA and/or kV according to patient size. COMPARISON: [facility], CT, CT ABDOMEN PELVIS W CON, 10/03/2019, 15:47. FINDINGS: Image quality: Excellent. Lung bases: There is minimal scarring in the lung bases. Heart: Heart is normal in size. ABDOMEN: Liver: There is a small cyst within the left hepatic lobe measuring up to 1.1 cm redemonstrated. Gallbladder: Within normal limits without calcified gallstones. Biliary ducts: No biliary ductal dilatation. Pancreas: Unremarkable. Spleen: The spleen is absent. Adrenal Glands: No adrenal nodules. Kidneys and Ureters: No hydronephrosis. Stomach and Bowel: There is mild gastric wall thickening in the region of the gastric antrum as well as mild wall thickening in the duodenal bulb. There also segments mild small bowel wall thickening, mucosal enhancement, and fat stranding involving a few bowel loops within the left upper quadrant. These are associated mildly dilated small bowel loops measuring up to 3.2 cm with air-fluid levels. More distal small bowel loops nondistended. The appendix is normal in appearance. There are surgical sutures within the sigmoid colon. Peritoneum: No abnormal intraperitoneal fluid. No free air. Ventral Wall: No hernia. Abdominal Nodes: No retroperitoneal or mesenteric adenopathy by size criteria. Vessels: Aorta and inferior vena cava are normal in size. PELVIS: Pelvic Organs: Unremarkable. Bladder: Unremarkable. Pelvic Nodes: No enlarged lymph nodes. Miscellaneous: No inguinal hernias are seen. Bones: Visualized osseous structures demonstrate no suspicious focal lesions. IMPRESSION: 1. Segmental bowel wall thickening and mucosal enhancement with mild fat stranding involving the jejunum in the left upper quadrant consistent with a nonspecific enteritis, likely infectious or inflammatory. 2. Associated dilated segment of small bowel with air-fluid levels likely reflects an associated ileus secondary to the enteritis. 3. Mild gastric wall thickening in the antrum as well as mild wall thickening in the duodenum bulb also suggestive of a gastritis/duodenitis. Dictated by: Dago Solis M.D. on 07/19/2021 at 0:12 Approved by: Dago Solis M.D. on 07/19/2021 at 0:21
[2021-07-18] MEDS: HYDROMORPHONE 0.5 MG INJ IV (23:54)
[2021-07-18] MEDS: SODIUM CHLORIDE 0.9% 1,000 ML 150 ML IV (23:57)
[2021-07-19] VITALS (7 sets, daily range): BP systolic 119–141; BP diastolic 55–98; PULSE 67–78; RESP 16–20; TEMP 36.1–36.5; O2SAT 95–100; BMI 23.9
[2021-07-19 01:24] LABS: COVID19 -Nasal RAPID Negative (Negative)
[2021-07-19] MEDS: DEXTROSE 5%-LACTATED RINGERS 1,000 ML 100 ML IV ×2 (01:50→11:53)
[2021-07-19] MEDS: ONDANSETRON 4 MG/2 ML INJ IV (01:53)
--- NOTE | 2021-07-19 02:56 | PC.NURSE ---
Pt arrived from the ED via stretcher at 0115. Pt was able to ambulate to the bed from the stretcher and denied any pain since getting pain medication in ED. Pt is A/O and on RA, does have mild nausea but no emesis. Bowel sounds are hypoactive to active at admission. Pt was oriented to room, call light, and fall precautions. Bed in the lowest and locked position, alarm on, with call light and belongings within reach.
--- NOTE | 2021-07-19 08:42 | PM.HP.1 ---
History of Present Illness History of Present Illness Date Patient Seen: 07/19/21 Time Patient Seen: 08:00 Chief complaint: abdominal pain Narrative: Pt is a 70yo woman with GERD, chronic constipation, hx of bowel resection in 2014, hx of pancreas and spleen removal in 2007, and prior small bowel obstruction who presented with acute onset of abdominal pain. The pt reports that yesterday evening around dinner time she had acute onset of severe epigastric abdominal pain that radiate towards the left but not her back. It came on suddenly, and did not seem provoked. Her abdomen appeared quite distended as well. She denies any emesis, but felt very nauseous. Due to the severity of the pain, she presented to the ED for evaluation. The pt reports that prior to last evening she was feeling well. She denies any other recent abdominal pain or change in her BMs. She had not had a BM earlier in the day yesterday. She denies any recent fevers or chills. She denies any recent blood in her stool or melena. In the ED, lab work was obtained that showed a mildly elevated WBC count. She recieved IV pain medications, Zofran, and IVF. Abdominal CT showed inflammation of her jejunum suggestive of nonspecific enteritis, likely gastroenteritis, and evidence of mild SBO. Surgery was consulted. The pt was admitted for further care. This morning, the pt reports that her pain is significantly improved and relatively minimal. She reports having a BM this morning. She denies any nausea. Patient History Medical History Bursitis Diverticulosis GERD (gastroesophageal reflux disease) Pancreatic mass Surgical History Anesthesia History of bowel resection (~2014) History of pancreatectomy (~2007) History of splenectomy (~2007) Status post delivery Status post endometrial ablation Status post hernia repair Family & Social History Family History Father Heart disease Mother No known health problems Family/Other Mental health problem Social History: household members spouse Prior Living Arrangements House lives independently Yes caregiver/support person No Safety & Behavioral: Feels Safe in Current Yes Environment Been Physically Hurt or No Threatened By a Person Suicidal Ideation Description None Suicide Plan Description No Plan Tobacco & Substance use: Smoking Status Former smoker alcohol intake current alcohol intake frequency a few times a month Substance Use Type does not use Meds Home Medications and Allergies Home Medications Medication Instructions Recorded Confirmed Type trazodone 50 mg tablet 100 mg PO BEDTIME #180 tab 04/15/21 07/19/21 Rx cyclobenzaprine 10 mg tablet 10 mg PO TID PRN #10 tab 05/31/21 07/19/21 Rx meloxicam 7.5 mg tablet 7.5 mg PO DAILY PRN #30 tab 05/31/21 07/19/21 Rx metronidazole 500 mg tablet 500 mg PO TID PRN 10 Days #0 tab 05/31/21 07/19/21 Rx sulfamethoxazole 800 1 tab PO BID PRN 10 Days #0 tab 05/31/21 07/19/21 Rx mg-trimethoprim 160 mg tablet Allergies Allergy/AdvReac Type Severity Reaction Status Date / Time Penicillins [PENICILLINS] Allergy Intermediate RASH Verified 05/31/21 10:50 ciprofloxacin [From CIPRO] AdvReac Mild NAUSEA, Verified 05/31/21 10:50 BURSITIS Exam Vital Signs (past 8 hours): - 07/19/21 01:01 07/19/21 01:21 07/19/21 07:00 Temperature 97.7 F Pulse Rate 68 74 Respiratory Rate 16 17 Blood Pressure 125/60 141/98 H Pulse Oximetry 96 97 100 07/19/21 07:05 Temperature 96.9 F L Pulse Rate 74 Respiratory Rate 17 Blood Pressure 123/55 L Pulse Oximetry 95 Oxygen Delivery Method Room Air Oxygen Flow Rate 0 Narrative Exam Narrative: GEN - alert, cooperative and no distress HEENT - normocephalic and atraumatic, sclera white, moist mucus membranes NECK - FROM, no adenopathy HEART - RRR, S1, S2 normal, no S3 or S4, no murmurs LUNGS - symmetric chest rise, no accessory muscles, clear to auscultation bilaterally ABD - flat, nondistended, slightly hypoactive bowel sounds, soft, mild tenderness in epigastric region without rebound/guarding/rigidity EXT - no cyanosis, clubbing or edema SKIN - no rashes or suspicious lesions NEURO - no gross deficits Objective Labs Result Diagrams: 07/18/21 21:55 07/18/21 22:17 Labs: Laboratory Results - last 24 hr 0307/18/21 07/18/21 21:55 22:17 22:50 WBC 14.9 H RBC 4.65 Hgb 14.3 Hct 43.3 MCV 93.2 MCH 30.8 MCHC 33.1 RDW 14.9 H Plt Count 290 Neut % (Auto) 60.9 Lymph % (Auto) 29.1 [place] % (Auto) 8.1 Eos % (Auto) 1.0 L Baso % (Auto) 0.9 Neut # (Auto) 9100 H Lymph # (Auto) 4300 [place] # (Auto) 1200 H Eos # (Auto) 200 Baso # (Auto) 100 Sodium 140 Potassium 4.6 Chloride 103 Carbon Dioxide 30 BUN 22 H Creatinine 0.63 Estimated GFR > 60.0 BUN/Creatinine Ratio 34.9 H Glucose 121 H Calcium 9.8 Total Bilirubin 0.6 AST 28 ALT 17 Alkaline Phosphatase 72 Total Protein 7.7 Albumin 4.5 Globulin 3.2 Albumin/Globulin Ratio 1.4 Lipase 44 Urine RBC None seen Urine WBC None seen Urine Bacteria None seen Ur Culture Indicated? Cult not indicated SARS-CoV-2 (PCR) 07/19/21 01:00 WBC RBC Hgb Hct MCV MCH MCHC RDW Plt Count Neut % (Auto) Lymph % (Auto) [place] % (Auto) Eos % (Auto) Baso % (Auto) Neut # (Auto) Lymph # (Auto) [place] # (Auto) Eos # (Auto) Baso # (Auto) Sodium Potassium Chloride Carbon Dioxide BUN Creatinine Estimated GFR BUN/Creatinine Ratio Glucose Calcium Total Bilirubin AST ALT Alkaline Phosphatase Total Protein Albumin Globulin Albumin/Globulin Ratio Lipase Urine RBC Urine WBC Urine Bacteria Ur Culture Indicated? SARS-CoV-2 (PCR) Negative Assessment & Plan Assessment & Plan narrative: Pt is a 70yo woman with GERD, chronic constipation, hx of bowel resection in 2014, hx of pancreas and spleen removal in 2007, and prior small bowel obstruction who presented with acute onset of abdominal pain. Imaging suggestive of enteritis with likely SBO as well. 1) SBO with enteritis: Symptoms already significantly improved. Pt with BM this morning. - Continue with pain medications, Zofran for symptom management - NPO for now - Surgery consulted, appreciate recommendations - Consider advancing diet later today - No need for antibiotics at this point FEN: NPO pending surgical evaluation DVT ppx: SCDs, pt ambulatory Code: Full Dispo: Pending symptomatic improvement, ability to advance diet. Anticipate one additional midnight. Time Spent With Patient Critical Care time: I spent a total of [] minutes of critical care time on this patient's care today; this time is exclusive of procedural time.
--- NOTE | 2021-07-19 14:20 | CM.IDA ---
Initial DCP Assessment Note Pt is a 70 yo female, resident of [place], arrives w/ abd pain, PMH includes GERD, chronic constipation, hx of bowel resection in 2015, hx of pancreas and spleen removal Patient admitted inpatient per Dr Fajardo's initial order for SBO. Pending consult by surgery team PCP: Johanna Hernandez Payer: Fabian M[employer] Reviewed chart, met w/patient, introduced role. Patient awaiting input from surgical team. Patient lives at home w.spouse, indp and active at baseline. 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 No needs expected from DC planning team although will remain available in case this changes before DC. According to RN, if patient is not considered a surgical candidate, she may be cleared for DC home this afternoon/evening. LESLIE Moise Discharge Planning/Care Management CM Discharge Assessment Start: 07/19/21 14:17 Freq: Status: Active Protocol: Document 07/19/21 14:17 DONNIE (Rec: 07/19/21 14:20 DONNIE [id number]) Discharge Planning Assessment Assigned Capacity Analyst LESLIE Edwards DPOA/Assigned Designee Name Mark Corrales, spouse Contact Information [phone] Advance Directives? Yes Advance Directives on File No History Provided By Patient,Medical Record Prior Living Arrangements House Household Members spouse Type of transporation used prior to Drives own vehicle admit Independent with ADL's Yes Is patient alert and oriented? Yes Barriers to Discharge No Discharge Plan Home Transportation Arrangement Spouse Referrals Initiated None needed
--- NOTE | 2021-07-19 16:00 | P.CONS_ITS ---
History of Present Illness Consult details Date Patient Seen: 07/19/21 Time Patient Seen: 16:00 Chief complaint: abdominal pain Narrative: 70-year-old woman with a history of a distal pancreatectomy, splenectomy and sigmoid colectomy for diverticulitis who has had prior bowel obstructions, presented overnight complaining of abdominal pain and distension. She did not have nausea or vomiting. Since admission she has had a bowel movement and flatus and has tolerated liquid diet. Meds Home Medications and Allergies Home Medications Medication Instructions Recorded Confirmed Type trazodone 50 mg tablet 100 mg PO BEDTIME #180 tab 04/15/21 07/19/21 Rx cyclobenzaprine 10 mg tablet 10 mg PO TID PRN #10 tab 05/31/21 07/19/21 Rx meloxicam 7.5 mg tablet 7.5 mg PO DAILY PRN #30 tab 05/31/21 07/19/21 Rx metronidazole 500 mg tablet 500 mg PO TID PRN 10 Days #0 tab 05/31/21 07/19/21 Rx sulfamethoxazole 800 1 tab PO BID PRN 10 Days #0 tab 05/31/21 07/19/21 Rx mg-trimethoprim 160 mg tablet Allergies Allergy/AdvReac Type Severity Reaction Status Date / Time Penicillins [PENICILLINS] Allergy Intermediate RASH Verified 05/31/21 10:50 ciprofloxacin [From CIPRO] AdvReac Mild NAUSEA, Verified 05/31/21 10:50 BURSITIS Exam Vital Signs (past 8 hours): Oxygen Delivery Method Room Air Oxygen Flow Rate 0 Narrative Exam Narrative: No acute distress Normal respiratory effort Abdomen soft nontender nondistended Objective Labs Result Diagrams: 07/18/21 21:55 07/18/21 22:17 Labs: Laboratory Results - last 24 hr 07/18/21 07/18/21 07/18/21 21:55 22:17 22:50 WBC 14.9 H RBC 4.65 Hgb 14.3 Hct 43.3 MCV 93.2 MCH 30.8 MCHC 33.1 RDW 14.9 H Plt Count 290 Neut % (Auto) 60.9 Lymph % (Auto) 29.1 [place] % (Auto) 8.1 Eos % (Auto) 1.0 L Baso % (Auto) 0.9 Neut # (Auto) 9100 H Lymph # (Auto) 4300 [place] # (Auto) 1200 H Eos # (Auto) 200 Baso # (Auto) 100 Sodium 140 Potassium 4.6 Chloride 103 Carbon Dioxide 30 BUN 22 H Creatinine 0.63 Estimated GFR > 60.0 BUN/Creatinine Ratio 34.9 H Glucose 121 H Calcium 9.8 Total Bilirubin 0.6 AST 28 ALT 17 Alkaline Phosphatase 72 Total Protein 7.7 Albumin 4.5 Globulin 3.2 Albumin/Globulin Ratio 1.4 Lipase 44 Urine RBC None seen Urine WBC None seen Urine Bacteria None seen Ur Culture Indicated? Cult not indicated SARS-CoV-2 (PCR) 07/19/21 01:00 WBC RBC Hgb Hct MCV MCH MCHC RDW Plt Count Neut % (Auto) Lymph % (Auto) [place] % (Auto) Eos % (Auto) Baso % (Auto) Neut # (Auto) Lymph # (Auto) [place] # (Auto) Eos # (Auto) Baso # (Auto) Sodium Potassium Chloride Carbon Dioxide BUN Creatinine Estimated GFR BUN/Creatinine Ratio Glucose Calcium Total Bilirubin AST ALT Alkaline Phosphatase Total Protein Albumin Globulin Albumin/Globulin Ratio Lipase Urine RBC Urine WBC Urine Bacteria Ur Culture Indicated? SARS-CoV-2 (PCR) Negative PENDING SALE TO [facility] Medical History Bursitis Diverticulosis GERD (gastroesophageal reflux disease) Pancreatic mass Surgical History Anesthesia History of bowel resection (~2014) History of pancreatectomy (~2007) History of splenectomy (~2007) Status post delivery Status post endometrial ablation Status post hernia repair Family History Father Heart disease Mother No known health problems Family/Other Mental health problem Social History marital status: number of children: 2 household members: spouse lives independently: Yes caregiver/support person: No housing: house Tobacco & Substance Use Smoking Status: Former smoker second hand exposure: No alcohol intake: current substance use type: does not use Assessment & Plan Assessment and plan (1) Small bowel obstruction: Problem details: Based on small-bowel follow-through, appears to have resolved Status: Acute Plan If she indeed had a bowel obstruction it appears to have resolved now. Recommend continuing to increase diet and she can be discharged home today. Time Spent With Patient Critical Care time: I spent a total of [] minutes of critical care time on this patient's care today; this time is exclusive of procedural time.
== END 2021-07-19 17:22 | disposition home or self-care (01) | DRG 390 ==
LOC: ED 23:04 → AC 07-19 00:49 → ICU 07-19 01:28
PROVIDERS: Admitting Provider Internal Medicine; Emergency Provider Emergency Medicine; PCP Family Medicine; Referring Provider Emergency Medicine; Visit Provider Family Medicine
DX: K56.609 Unspecified intestinal obstruction, unspecified as to partial versus complete obstruction (principal); K52.9 Noninfective gastroenteritis and colitis, unspecified; K59.09 Other constipation; Z90.410 Acquired total absence of pancreas; Z90.81 Acquired absence of spleen; Z87.891 Personal history of nicotine dependence; Z20.822 Contact with and (suspected) exposure to COVID-19; Z90.49 Acquired absence of other specified parts of digestive tract
CPT/HCPCS: 36415; 74177; 80053; 81003; 81015; 83690; 85025; 87635; 93005; 96374; 99223; 99232; 99284; C9803; J1170; J2405; J7121; Q9967

== ENCOUNTER → 2021-08-29 14:08 | Outpatient (CLI) | payer OTHER, SELFPAY ==
[2021-07-19 01:29] VITALS: BMI 23.9
[2021-08-22 16:31] VITALS: BMI 23.9
== END ==
PROVIDERS: PCP Family Medicine; Referring Provider Family Medicine; Visit Provider Family Medicine
DX: M85.88 Other specified disorders of bone density and structure, other site (principal); Z13.820 Encounter for screening for osteoporosis; Z78.0 Asymptomatic menopausal state
CPT/HCPCS: 77080

== ENCOUNTER → 2022-01-20 11:34 | Outpatient (CLI) | payer OTHER, SELFPAY ==
[2022-01-13 08:17] VITALS: BMI 23.9
[2022-01-20 13:47] LABS: Add Manual Diff / Slide Review NO; Basophils Absolute Auto 100 /uL (0-100); Basophils Percent Auto 0.9 % (0-2); Eosinophils Absolute Auto 100 /uL (0-450); Hematocrit 39.5 % (36-46); Hemoglobin 13.1 g/dL (12.0-16.0); Lymphocytes Absolute Auto 4200 /uL (1100-4500); Lymphocytes Percent Auto 34.6 % (25-40); Mean Corpuscular HGB Conc 33.2 % (30-36); Mean Corpuscular Hemoglobin 30.3 PG (26-34); Monocytes Absolute Auto 900 /uL (0-900); Monocytes Percent Auto 7.4 % (3-14); Neutrophils Absolute Auto 6800 /uL (1500-7000); Neutrophils Percent Auto 56.1 % (50-75); Platelet Count 278 X10^3/uL (150-400); Red Blood Cell Count 4.34 X10^6/uL (4.0-5.2); White Blood Cell Count 12.1 X10^3/uL (4.5-11.0)
[2022-01-20 14:33] LABS: Free T3, Triiodothyronine Free 3.96 pg/mL (2.77-5.27); Free T4, Direct Thyroxine 1.35 ng/dL (0.78-2.19)
[2022-01-20 14:47] LABS: Thyroid Stimulating Hormone 0.146 uIU/mL (0.47-4.68)
[2022-01-20 14:53] LABS: Ferritin 36 ng/mL (11-264)
[2022-01-20 15:04] LABS: Progesterone, Total 0.27 ng/mL
[2022-01-24 09:42] LABS: Estrogen 42 pg/mL (40-244)
== END ==
PROVIDERS: PCP Family Medicine; Referring Provider Family Medicine; Visit Provider Family Medicine
DX: L60.3 Nail dystrophy (principal); L65.9 Nonscarring hair loss, unspecified; R53.83 Other fatigue; M85.80 Other specified disorders of bone density and structure, unspecified site; R63.5 Abnormal weight gain; Z72.820 Sleep deprivation
CPT/HCPCS: 36415; 82672; 82728; 84144; 84439; 84443; 84481; 85025

== ENCOUNTER → 2022-02-26 11:05 | Outpatient (CLI) | payer OTHER, SELFPAY ==
[2022-01-13 08:17] VITALS: BMI 23.9
[2022-02-26 12:55] LABS: Free T3, Triiodothyronine Free 3.78 pg/mL (2.77-5.27); Free T4, Direct Thyroxine 1.17 ng/dL (0.78-2.19)
[2022-02-26 13:08] LABS: TSH w/ Reflex to FT4 0.26 uIU/mL (0.47-4.68)
== END ==
PROVIDERS: PCP Family Medicine; Referring Provider Family Medicine; Visit Provider Family Medicine
DX: E03.9 Hypothyroidism, unspecified (principal)
CPT/HCPCS: 36415; 84439; 84443; 84481

== ENCOUNTER → 2022-02-28 11:21 | Outpatient (CLI) | payer OTHER, SELFPAY ==
[2022-01-13 08:17] VITALS: BMI 23.9
--- NOTE | 2022-02-28 11:24 | DI.RAD.S_ITS ---
PROCEDURE: XR RIBS RT MIN 3V W CXR 1V INDICATIONS: Rib pain right lower anterior and lateral TECHNIQUE: Two views of the right ribs were acquired, along with a single view chest. COMPARISON: None. FINDINGS: Surgical changes and devices: None. Bones and chest wall: No fractures or dislocations. No suspicious bony lesions. Overlying soft tissues appear unremarkable. Lungs and pleura: No pleural effusions or pneumothorax. Lungs appear clear. Mediastinum: Mediastinal contours appear normal. Heart size is normal. IMPRESSION: 1. No visible displaced rib fractures. 2. No evidence of underlying chest trauma. Dictated by: Fátima Schaffer M.D. on 02/28/2022 at 17:53 Approved by: Fátima Schaffer M.D. on 02/28/2022 at 17:54
[2022-03-01 18:19] LABS: Anti Thyroglobulin Antibody <1.0 IU/mL (0.0-0.9); Thyroid Peroxidase Antibodies 47 IU/mL (0-34)
== END ==
PROVIDERS: PCP Family Medicine; Referring Provider Physician Assistant; Visit Provider Physician Assistant
DX: R07.81 Pleurodynia (principal); R10.11 Right upper quadrant pain; R79.89 Other specified abnormal findings of blood chemistry
CPT/HCPCS: 36415; 71101; 86376; 86800

== ENCOUNTER → 2022-03-06 10:59 | Outpatient (RCR) | payer OTHER, SELFPAY ==
[2019-01-29 00:46] VITALS: BMI 24.0
--- NOTE | 2021-01-17 15:32 | PT.OIE ---
Current Diagnoses Benign paroxysmal vertigo, unspecified ear (01/17/21) Dizziness and giddiness (01/17/21) Past Medical History (Last Reviewed 11/03/19 @ 13:43 by Merari Alejandro MD) Bursitis Diverticulosis GERD (gastroesophageal reflux disease) History of bowel resection (~2014) History of pancreatectomy (~2007) Pancreatic mass Past Surgical History (Last Updated 03/01/20 @ 08:19 by Johanna Hernandez MD) Anesthesia History of bowel resection (~2014) History of pancreatectomy (~2007) History of splenectomy (~2007) Status post delivery Status post endometrial ablation Status post hernia repair Visit Care Team Role Provider Type Johanna Hernandez MD Attending Provider Physician Primary Care Provider Referring Provider Specialty: [facility] Address: [address] [place] [address], [facility] Email: [email or web address] Physical Therapy Initial Evaluation PT-OP-A Visit Information Start: 01/17/21 15:10 Freq: Status: Active Protocol: Document 01/17/21 14:30 DCW (Rec: 01/17/21 15:23 DCW [id number]) Out-Patient Physical Therapy Visit Information Visit Information Visit Type Initial Evaluation Visit Start Time 14:30 Visit Stop Time 15:00 Total Visit Minutes 30 Visit Number 1 Number of INDUSTRIAL SALES MANAGER Visits 0 Evaluation Information Evaluation Date 01/17/21 PT-OP-B Current Condition Start: 01/17/21 15:10 Freq: Status: Active Protocol: Document 01/17/21 14:30 DCW (Rec: 01/17/21 15:23 DCW [id number]) Current Condition History of Current Condition Onset Date 6 months Current Complaints dizziness when blow-drying hair History of Current Condition Pt is a 70 year old female presenting with a six month history of dizziness with positional change. Pt denies any rotational vertigo, and no difficulty with lying down or rolling in bed, her only symptoms is a light-headed/ woozy feeling when blow-drying her hair, when she bends over and holds her head upside- down for 1-2 minutes, and then stands up straight and quickly flips her head back. Pt denies any other serious health issues, and overall feels she is doing very well. Pt researched BPPV on her own, and has tried to perform some repositioning maneuvers she found on YouTube, but is unsure of their success. Treatment Goals Patient/Caregiver Goals Eliminate dizziness PT-OP-C Subjective Start: 01/17/21 15:10 Freq: Status: Active Protocol: Document 01/17/21 14:30 DCW (Rec: 01/17/21 15:23 DCW [id number]) OP-PT Subjective Patient Comments Patient Comments Overall I'm feeling pretty good, actually. Patient Reported Progress Improving Patient Questionnaires Dizziness Handicap Inventory DHI Score 4% DHI Functional Impairment 1 to 19% Impaired (Score 1-19) PT-OP-O Vestibular Start: 01/17/21 15:10 Freq: Status: Active Protocol: Document 01/17/21 14:30 DCW (Rec: 01/17/21 15:23 DCW [id number]) Vestibular Assessment Screening Tests Vestibular Artery Screen Negative Auditory Tests Burns Test Within normal limits Rinne Test Negative Air Conduction Results Equal Visual Testing Smooth Pursuits Horizontal WNL Smooth Pursuits Vertical WNL Saccades Horizontal WNL Saccades Vertical WNL Heave Test Positive Bilateral Thrust Head Positive Bilateral Positional Testing Jason-Hallpike Negative Left,Negative Right Rolling Test Negative Left,Negative Right Comments Vestibular Comments Positive thrust/heave tests appeared to be largely due to inattention during testing rather than any true positive sign for vestibular dysfunction PT-OP-T Assessment and Plan Start: 01/17/21 15:10 Freq: Status: Active Protocol: Document 01/17/21 14:30 DCW (Rec: 01/17/21 15:32 DCW [id number]) Physical Therapy Assessment Rehab Potential Rehabilitation Potential Excellent Evaluation Complexity Number of Personal Factors/Comorbidities 0 Number of Body Systems Impaired 1-2 Clinical Presentation at Evaluation Stable Goals One Impairment Pt experiences dizziness when blow-drying her hair Short Term Goal (STG) Pt to report asymptomatic hair blow-drying for one full week . STG Duration 02/16/21 Assessment Summary Assessment Pt's vestibular testing almost entirely negative today. Unable to replicate pt's symptoms with any vestibular testing. Had pt attempt to perform same action that normally bothers her, and was still unable to replicate it. Discussed with pt that it is likely one of three possibilities. #1, BPPV has a waxing/waning nature, and pt may simply not be symptomatic today. #2, Pt successfully self-treated BPPV using CRM she found online, or #3, pt may be experiencing brief episode of mild Orthostatic Hypotension when going from one extreme (head upside down) to another (whipping head back) very quickly. Pt in agreement that she is asymptomatic today, and wants to keep a closer eye on her symptoms herself. Pt will return for a follow-up in the next 2-3 weeks, will report on her symptoms at that time. Physical Therapy Plan Frequency and Duration Frequency of Treatment As indicated Duration of Treatment One month Plan of Care Start Date 01/17/21 Plan of Care End Date 02/16/21 Therapeutic Interventions Therapeutic Interventions Canalithic Repositioning, Coordination Training,Patient/ Caregiver Education,Self-Care/ Home Management,Therapeutic Activities,Therapeutic Exercises Modalities Cold Pack/Ice Massage,Hot Packs Next Visit Focus/Plan Next Note Type Treatment Note Next Visit Plan Further positional and vestibular testing
--- NOTE | 2021-01-17 15:33 | PT.OPPOC ---
Physical, Occupational & Speech Therapy At [facility] Current Diagnoses Benign paroxysmal vertigo, unspecified ear (01/17/21) Dizziness and giddiness (01/17/21) Visit Care Team Role Provider Type Johanna Hernandez MD Attending Provider Physician Primary Care Provider Referring Provider Specialty: Family Practice Address: [address] [place] [address], [place], [address] Email: [email or web address] Plan Of Care PT-OP-T Assessment and Plan Start: 01/17/21 15:10 Freq: Status: Active Protocol: Document 01/17/21 14:30 DCW (Rec: 01/17/21 15:32 DCW [id number]) Physical Therapy Assessment Rehab Potential Rehabilitation Potential Excellent Evaluation Complexity Number of Personal Factors/Comorbidities 0 Number of Body Systems Impaired 1-2 Clinical Presentation at Evaluation Stable Goals One Impairment Pt experiences dizziness when blow-drying her hair Short Term Goal (STG) Pt to report asymptomatic hair blow-drying for one full week . STG Duration 02/16/21 Assessment Summary Assessment Pt's vestibular testing almost entirely negative today. Unable to replicate pt's symptoms with any vestibular testing. Had pt attempt to perform same action that normally bothers her, and was still unable to replicate it. Discussed with pt that it is likely one of three possibilities. #1, BPPV has a waxing/waning nature, and pt may simply not be symptomatic today. #2, Pt successfully self-treated BPPV using CRM she found online, or #3, pt may be experiencing brief episode of mild Orthostatic Hypotension when going from one extreme (head upside down) to another (whipping head back) very quickly. Pt in agreement that she is asymptomatic today, and wants to keep a closer eye on her symptoms herself. Pt will return for a follow-up in the next 2-3 weeks, will report on her symptoms at that time. Physical Therapy Plan Frequency and Duration Frequency of Treatment As indicated Duration of Treatment One month Plan of Care Start Date 01/17/21 Plan of Care End Date 02/16/21 Therapeutic Interventions Therapeutic Interventions Canalithic Repositioning, Coordination Training,Patient/ Caregiver Education,Self-Care/ Home Management,Therapeutic Activities,Therapeutic Exercises Modalities Cold Pack/Ice Massage,Hot Packs Next Visit Focus/Plan Next Note Type Treatment Note Next Visit Plan Further positional and vestibular testing Plan of Care Dates Plan of Care Start Date 01/17/21 Plan of Care End Date 02/16/21 Electronically Signed by: Blair Mcallister, PT 01/17/21 [id number] Please Sign and Return: I have reviewed this Plan of Care and certify that the skilled therapy services above are required to meet the patient?s needs. Physician Signature Date Printed Name and Credentials Clinical Instructor Signature Printed Name and Credentials
--- NOTE | 2022-03-04 16:55 | PT.OPDS ---
Current Diagnoses Benign paroxysmal vertigo, unspecified ear (01/17/21) Dizziness and giddiness (01/17/21) Visit Care Team Role Provider Type Johanna Hernandez MD Attending Provider Physician Primary Care Provider Referring Provider Specialty: [facility] Address: [address] [place] [address], [place], [address] Email: [email or web address] Visit Number Visit Number 1 Discharge Summary PT-OP-B Current Condition Start: 01/17/21 15:10 Freq: Status: Active Protocol: Document 01/17/21 14:30 DCW (Rec: 01/17/21 15:23 DCW [id number]) Current Condition History of Current Condition Onset Date 6 months Current Complaints dizziness when blow-drying hair History of Current Condition Pt is a 70 year old female presenting with a six month history of dizziness with positional change. Pt denies any rotational vertigo, and no difficulty with lying down or rolling in bed, her only symptoms is a light-headed/ woozy feeling when blow-drying her hair, when she bends over and holds her head upside- down for 1-2 minutes, and then stands up straight and quickly flips her head back. Pt denies any other serious health issues, and overall feels she is doing very well. Pt researched BPPV on her own, and has tried to perform some repositioning maneuvers she found on YouTube, but is unsure of their success. Treatment Goals Patient/Caregiver Goals Eliminate dizziness PT-OP-C Subjective Start: 01/17/21 15:10 Freq: Status: Active Protocol: Document 01/17/21 14:30 DCW (Rec: 01/17/21 15:23 DCW [id number]) OP-PT Subjective Patient Comments Patient Comments Overall I'm feeling pretty good, actually. Patient Reported Progress Improving Patient Questionnaires Dizziness Handicap Inventory DHI Score 4% DHI Functional Impairment 1 to 19% Impaired (Score 1-19) PT-OP-O Vestibular Start: 01/17/21 15:10 Freq: Status: Active Protocol: Document 01/17/21 14:30 DCW (Rec: 01/17/21 15:23 DCW [id number]) Vestibular Assessment Screening Tests Vestibular Artery Screen Negative Auditory Tests Burns Test Within normal limits Rinne Test Negative Air Conduction Results Equal Visual Testing Smooth Pursuits Horizontal WNL Smooth Pursuits Vertical WNL Saccades Horizontal WNL Saccades Vertical WNL Heave Test Positive Bilateral Thrust Head Positive Bilateral Positional Testing Jason-Hallpike Negative Left,Negative Right Rolling Test Negative Left,Negative Right Comments Vestibular Comments Positive thrust/heave tests appeared to be largely due to inattention during testing rather than any true positive sign for vestibular dysfunction PT-OP-T Assessment and Plan Start: 01/17/21 15:10 Freq: Status: Active Protocol: Document 03/04/22 16:55 DCW (Rec: 03/04/22 16:55 DC [id number]) Physical Therapy Assessment Assessment Summary Assessment Pt canceled all follow-up visits following initial eval. Pt will discharge from skilled therapy at this time. Physical Therapy Plan Discharge Physical Therapy Discharge Reasons No Longer Attending PT
== END | disposition home or self-care (01) ==
LOC: PHYS 01-17 13:53
PROVIDERS: PCP Family Medicine; Referring Provider Family Medicine; Visit Provider Family Medicine
DX: H81.10 Benign paroxysmal vertigo, unspecified ear (principal)
CPT/HCPCS: 97161

== ENCOUNTER → 2022-03-21 08:30 | Outpatient (CLI) | payer OTHER, SELFPAY ==
[2022-01-13 08:17] VITALS: BMI 23.9
--- NOTE | 2022-03-21 08:32 | DI.US.S_ITS ---
PROCEDURE: US ABDOMEN COMPLETE INDICATIONS: RUQ PAIN. HISTORY OF SPLENECTOMY/PARTIAL PANCREATECTOMY TECHNIQUE: Real-time scanning was performed of the abdominal and retroperitoneal organs, with image documentation. COMPARISON: [facility], CT, CT ABDOMEN PELVIS W CON, 07/18/2021, 23:51. FINDINGS: Liver: The liver is normal in size and echogenicity. Occlusive thrombus is seen at the bifurcation of the main portal vein extending into the left portal vein and a short distance into the right portal vein. There is hepatopetal flow in the main portal vein which is normal in diameter at 10.7 mm. In retrospect, there is probable partial thrombus within the right portal veins on CT from 07/18/2021. Hepatic veins are patent with normal Doppler signal. Hepatic artery is patent. Gallbladder: The gallbladder appears normal without gallstones or gallbladder wall thickening. There is no pericholecystic fluid. Sonographic Obando sign is negative. Biliary ducts: Intrahepatic bile ducts are non-dilated. Extrahepatic bile duct caliber measures 6.6 mm. Normal is 6-7 mm or less in diameter, or 10 mm or less post-cholecystectomy. Pancreas: Pancreas is not well visualized due to overlying bowel gas, although the visualized portions are unremarkable. Spleen: Status post splenectomy. Kidneys: Kidneys are normal in size and echotexture. Right kidney measures 10.3 cm long; left kidney measures 11.1 cm long. No hydronephrosis or nephrolithiasis. No solid masses. Aorta: Visualized aorta is normal in caliber at less than 3 cm. Iliacs: Proximal common iliac arteries are normal in caliber at less than 2.5 cm. IVC: Intrahepatic inferior vena cava is patent. Miscellaneous: No free abdominal fluid. IMPRESSION: 1. 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 Hepatic artery and hepatic veins are patent. 2. Status post splenectomy. Pancreas is not well visualized. 3. Normal gallbladder. Approved by: Huan Davison M.D. on 03/21/2022 at 10:06 Ordering provider's office was unavailable at the time of this dictation due to the holiday weekend, and patient was sent to the emergency department for further evaluation.
== END ==
PROVIDERS: PCP Family Medicine; Referring Provider Physician Assistant; Visit Provider Physician Assistant
DX: I81 Portal vein thrombosis (principal); R10.11 Right upper quadrant pain; R07.81 Pleurodynia; Z90.81 Acquired absence of spleen
CPT/HCPCS: 76700; 93976

== ENCOUNTER 2022-03-21 09:23 | Emergency (ER) | payer OTHER, SELFPAY ==
[2022-01-13 08:17] VITALS: BMI 23.9
[2022-03-21 09:48] VITALS: BP 164/77; PULSE 63; RESP 12; TEMP 36.2; O2SAT 99; BMI 24.0
[2022-03-21 10:43] LABS: Prothrombin Time 11.9 SECONDS (10.1-12.7)
[2022-03-21 10:45] LABS: Add Manual Diff / Slide Review NO; Basophils Absolute Auto 100 /uL (0-100); Basophils Percent Auto 0.9 % (0-2); Eosinophils Absolute Auto 100 /uL (0-450); Eosinophils Percent Auto 0.9 % (2-4); Hematocrit 40.6 % (36-46); Hemoglobin 13.6 g/dL (12.0-16.0); Lymphocytes Absolute Auto 3700 /uL (1100-4500); Lymphocytes Percent Auto 48.3 % (25-40); Mean Corpuscular HGB Conc 33.4 % (30-36); Mean Corpuscular Hemoglobin 30.6 PG (26-34); Mean Corpuscular Volume 91.5 fL (80-100); Monocytes Absolute Auto 900 /uL (0-900); Monocytes Percent Auto 12.1 % (3-14); Neutrophils Absolute Auto 2900 /uL (1500-7000); Neutrophils Percent Auto 37.8 % (50-75); PTT Partial Thromboplastin Tim 29 SECONDS (26-36); Red Blood Cell Count 4.44 X10^6/uL (4.0-5.2); White Blood Cell Count 7.6 X10^3/uL (4.5-11.0)
[2022-03-21 11:11] LABS: Alanine Aminotransferase 25 IU/L (<35); Albumin 4.5 g/dL (3.5-5.0); Albumin Globulin Ratio 1.3 (1.0-2.8); Alkaline Phosphatase 81 U/L (38-126); Aspartate Aminotransferase 37 IU/L (14-36); BUN Creatinine Ratio 34.6 (6-22); Bilirubin Total 0.7 mg/dL (0.2-1.3); Bilirubin Unconjugated 0.6 mg/dL (0.0-1.1); Blood Urea Nitrogen 18 mg/dL (7-17); Calcium 9.1 mg/dL (8.4-10.2); Carbon Dioxide 27 mmol/L (22-32); Chloride 102 mmol/L (98-107); Estimated Glomerular Filt Rate > 60 mL/min (>60); Globulin 3.4 g/dL (1.7-4.1); Glucose 98 mg/dL (80-110); HEMOLYSIS 102 (0-50); Lipase 62 U/L (23-300); Platelet Count 234 X10^3/uL (150-400); Potassium 5.7 mmol/L (3.4-5.1); Sodium 137 mmol/L (137-145); Total Protein 7.9 g/dL (6.3-8.2)
--- NOTE | 2022-03-21 11:28 | ED_ITS ---
HPI - General Adult General Chief complaint: Abdominal Pain Stated complaint: blood clot in liver- sent by Rad Time Seen by Provider: 03/21/22 09:53 Source: patient Mode of arrival: Ambulatory History of Present Illness HPI narrative: Patient is a 71-year-old female who approximately 6 weeks ago started to have right upper quadrant abdominal pain. She stated that she followed up with her primary doctor who ordered a abdominal ultrasound. This was scheduled several weeks ago and she had a performed today. She was told to come to the emergency department because there were findings of blood clots in her portal veins. She has had several abdominal surgeries in the past. Has not on anticoagulation. Has never had a blood clot in the past. She actually states that her abdominal pain has actually improved somewhat from its onset 6 weeks ago. No prior GI bleeds. No prior intracranial hemorrhages. Does not bruise easy. Of blood in her stool. Related Data Previous Rx's Medication Instructions Recorded trazodone 50 mg tablet 100 mg PO BEDTIME #180 tabs 04/15/21 apixaban 5 mg tablet (Eliquis) 5 mg PO DIRECTED #70 tabs 03/21/22 Allergies Allergy/AdvReac Type Severity Reaction Status Date / Time Penicillins [PENICILLINS] Allergy Intermediate RASH Verified 03/21/22 09:51 ciprofloxacin [From CIPRO] AdvReac Mild NAUSEA, Verified 03/21/22 09:51 BURSITIS Review of Systems Gastrointestinal Gastrointestinal: Reports system reviewed and no additional complaints, except as documented Genitourinary Genitourinary: Reports system reviewed and no additional complaints, except as documented Integumentary/Breasts Skin/Breast: Reports system reviewed and no additional complaints, except as documented Hematologic/Lymphatic Hematologic/Lymphatic: Reports system reviewed and no additional complaints, except as documented Patient History Medical History Bursitis Diverticulosis GERD (gastroesophageal reflux disease) Pancreatic mass Surgical History Anesthesia History of bowel resection (~2014) History of pancreatectomy (~2007) History of splenectomy (~2007) Status post delivery Status post endometrial ablation Status post hernia repair Family History Father Heart disease Mother No known health problems Family/Other Mental health problem Social History marital status: number of children: 2 household members: spouse lives independently: Yes caregiver/support person: No housing: house Smoking Status: Former smoker second hand exposure: No alcohol intake: current substance use type: does not use Smoking Status: Former smoker alcohol intake frequency: a few times a month Substance Use Type: does not use Exam Initial Vital Signs Initial Vital Signs: Vital Signs Temperature 97.1 F L 03/21/22 09:48 Pulse Rate 63 03/21/22 09:48 Respiratory Rate 12 03/21/22 09:48 Blood Pressure 164/77 H 03/21/22 09:48 Pulse Oximetry 99 03/21/22 09:48 Oxygen Delivery Method 03/21/22 09:48 Resp Effort & Inspection: normal respiratory effort Cardio Rate: regular rate GI Inspection: normal to inspection Skin General: no rashes or lesions noted Course Orders Ordered: ED Orders 03/21/22 10:25 Basic Metabolic Panel Stat Complete Blood Count AUTO DIFF Stat Hepatic (Liver) Panel Stat Lipase Stat Partial Thromboplastin Time Stat Prothrombin Time INR Stat Vital Signs Vital signs: Vital Signs - 8 hr 03/21/22 09:48 Temperature 97.1 F L Pulse Rate 63 Respiratory Rate 12 Blood Pressure 164/77 H Pulse Oximetry 99 Oxygen Delivery Method Room Air Medical Decision Making Lab Data Result diagrams: 03/21/22 10:25 03/21/22 10:25 Labs: Lab Results 03/21/22 03/21/22 03/21/22 Range/Units 10:25 10:25 10:25 WBC 7.6 (4.5-11.0) X10^3/uL RBC 4.44 (4.0-5.2) X10^6/uL Hgb 13.6 (12.0-16.0) g/dL Hct 40.6 (36-46) % MCV 91.5 (80-100) fL MCH 30.6 (26-34) PG MCHC 33.4 (30-36) % RDW 14.0 (11.6-14.8) % Plt Count 234 (150-400) X10^3/uL Neut % (Auto) 37.8 L (50-75) % Lymph % (Auto) 48.3 H (25-40) % [facility] % (Auto) 12.1 (3-14) % Eos % (Auto) 0.9 L (2-4) % Baso % (Auto) 0.9 (0-2) % Neut # (Auto) 2900 (4815-8764) /uL Lymph # (Auto) 3700 (6701-9271) /uL [facility] # (Auto) 900 (0-900) /uL Eos # (Auto) 100 (0-450) /uL Baso # (Auto) 100 (0-100) /uL PT 11.9 (10.1-12.7) SECONDS INR 1.0 (0.9-1.3) APTT 29 (26-36) SECONDS Sodium 137 (137-145) mmol/L Potassium 5.7 H (3.4-5.1) mmol/L Chloride 102 (98-107) mmol/L Carbon Dioxide 27 (22-32) mmol/L BUN 18 H (7-17) mg/dL Creatinine 0.52 (0.52-1.04) mg/dL Estimated GFR > 60 (>60) mL/min BUN/Creatinine Ratio 34.6 H (6-22) Glucose 98 (80-110) mg/dL Calcium 9.1 (8.4-10.2) mg/dL Total Bilirubin 0.7 (0.2-1.3) mg/dL Conjugated Bilirubin 0.0 (0.0-0.3) md/dL Unconjugated Bilirubin 0.6 (0.0-1.1) mg/dL AST 37 H (14-36) IU/L ALT 25 (<35) IU/L Alkaline Phosphatase 81 (38-126) U/L Total Protein 7.9 (6.3-8.2) g/dL Albumin 4.5 (3.5-5.0) g/dL Globulin 3.4 (1.7-4.1) g/dL Albumin/Globulin Ratio 1.3 (1.0-2.8) Lipase 62 (23-300) U/L Imaging Data US - abdomen: Radiologist's Impression: [address] [address] Ultrasound Report Signed Patient: Akiko Corrales MR#: [id number] : 1950 Acct:[id number] Age/Sex: 71 / F Date of Service: 03/21/22 Loc: US Accession Number: [id number] ?? Procedure: US abdomen complete Ordering Provider: Lilia Jacobson P.A-C PROCEDURE:? US ABDOMEN COMPLETE ? INDICATIONS:? RUQ PAIN. HISTORY OF SPLENECTOMY/PARTIAL PANCREATECTOMY ? TECHNIQUE:? Real-time scanning was performed of the abdominal and retroperitoneal organs, w ith image documentation.? ? COMPARISON:? [facility], CT, CT ABDOMEN PELVIS W CON, 07/18/2021, 23:51. ? FINDINGS:? ? Liver:? The liver is normal in size and echogenicity.? Occlusive thrombus is see n at the bifurcation of the main portal vein extending into the left portal vein and a short distance into the right portal vein.? There is hepatopetal flow in the main portal vein which is normal in diameter at 10.7 mm.? In retrospect, there is probable partial thrombus within the right portal veins on CT from 07/18/2021.? Hepatic veins are patent with normal Doppler signal.? Hepatic artery is patent.? ? Gallbladder:? The gallbladder appears normal without gallstones or gallbladder wall thickening.? There is no pericholecystic fluid.? Sonographic Obando sign is negative. ? Biliary ducts:? Intrahepatic bile ducts are non-dilated.? Extrahepatic bile duct caliber measures 6.6 mm.? Normal is 6-7 mm or less in diameter, or 10 mm or less post-cholecystectomy.? ? Pancreas:? Pancreas is not well visualized due to overlying bowel gas, although the visualized portions are unremarkable.? ? Spleen:? Status post splenectomy.? ? Kidneys:? Kidneys are normal in size and echotexture.? Right kidney measures 10.3 cm long; left kidney measures 11.1 cm long.? No hydronephrosis or nephrolithiasis.? No solid masses.? ? Aorta:? Visualized aorta is normal in caliber at less than 3 cm.? ? Iliacs:? Proximal common iliac arteries are normal in caliber at less than 2.5 cm.? ? IVC:? Intrahepatic inferior vena cava is patent.? ? Miscellaneous:? No free abdominal fluid.? ? ? IMPRESSION:? 1. 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 Hepatic artery and hepatic veins are patent.? ? 2. Status post splenectomy.? Pancreas is not well visualized. ? 3. Normal gallbladder. ? Approved by: Huan Davison M.D. on 03/21/2022 at 10:06? ? Ordering provider's office was unavailable at the time of this dictation due to the holiday weekend, and patient was sent to the emergency department for further evaluation. MDM Narrative Medical decision making narrative: The ultrasound report included in this note is for reference purposes only. It was ordered as a outpatient. It does show that she has portal vein thrombosis. Unsure if this is acute or chronic. She started to have pain approximately 6 weeks ago which I assume was when this occurred. Regardless will start her on anticoagulation. We discussed the risks and benefits of this. We will have her follow-up with her primary doctor for further workup. She was given return pr ecautions. She expressed understanding and agreement. Discharge Plan Departure Patient Disposition: Home Clinical Impression: Portal vein thrombosis Activity Restrictions/Additional Instructions: I recommend that you start taking the anticoagulation as directed. Contact your primary doctor's office on Thursday for a follow-up. Return to the emergency department for any new or worsening symptoms. Prescriptions: New Eliquis 5 mg tablet 5 mg PO DIRECTED Qty: 70 0RF Rx Instructions: Take 2T PO BID for 7D then 1T PO BID after No Action trazodone 50 mg tablet 100 mg PO BEDTIME Qty: 180 3RF Rx Instructions: Take 2 tablets by mouth at bedtime for sleep. Referrals: Johanna Hernandez MD [Primary Care Provider] -
== END 2022-03-21 11:46 | disposition home or self-care (01) ==
PROVIDERS: Emergency Provider Emergency Medicine; PCP Family Medicine
DX: I81 Portal vein thrombosis (principal); R10.11 Right upper quadrant pain; R07.81 Pleurodynia; Z90.81 Acquired absence of spleen
CPT/HCPCS: 76700; 80048; 80076; 83690; 85025; 85610; 85730; 93976; 99281; 99283

== ENCOUNTER 2022-03-25 18:05 | Observation (INO) | payer OTHER, SELFPAY ==
[2022-01-13 08:17] VITALS: BMI 23.9
[2022-03-25 18:22] VITALS: BP 154/73; PULSE 78; RESP 22; TEMP 36.6; O2SAT 98; BMI 24.0
[2022-03-25 18:37] VITALS: BP 152/75; PULSE 68; O2SAT 96
--- NOTE | 2022-03-25 18:48 | ED.ABDPAIN ---
HPI - Abdominal Pain General Chief Complaint: Abdominal Pain Stated Complaint: stomach and back pain Time Seen by Provider: 03/25/22 18:09 Source: patient Mode of arrival: Ambulatory History of Present Illness HPI narrative: 71-year-old female former smoker with history GERD, small-bowel obstruction, diverticulitis and recent diagnosis portal vein thrombosis, recently started on Eliquis presents with her in the chief severe epigastric pain with radiation to her back that started just prior to arrival at about 30 minutes after eating dinner. She states that her pain is sharp, crampy and severe and without obvious provocation or palliation. Additionally she states that she has had bloating. She denies dizziness, weakness or lightheadedness. She is had no vomiting but is slightly nauseated. She denies any change in bowel habits. She has no dysuria, frequency or urgency. Related Data Previous Rx's Medication Instructions Recorded trazodone 50 mg tablet 100 mg PO BEDTIME #180 tabs 04/15/21 apixaban 5 mg tablet (Eliquis) 5 mg PO DIRECTED #70 tabs 03/21/22 Allergies Allergy/AdvReac Type Severity Reaction Status Date / Time Penicillins [PENICILLINS] Allergy Intermediate RASH Verified 03/25/22 15:01 ciprofloxacin [From CIPRO] AdvReac Mild NAUSEA, Verified 03/25/22 15:01 BURSITIS Review of Systems Review of Systems Narrative: GENERAL: Denies chills, fatigue, malaise, fever, sweats. HEENT: Denies sinus pain, ear pain, sore throat, difficulty swallowing, dizziness. RESPIRATORY: Denies dyspnea, cough, wheezing, hemoptysis, sputum. CARDIOVASCULAR: Denies chest pain, palpitations, orthopnea, edema, GASTROINTESTINAL: See HPI : Denies dysuria, frequency, incontinence, hematuria, urinary retention. MUSCULOSKELETAL: denies weakness, joint pain, or bony pain SKIN: Denies rash, skin lesions, or other NEUROLOGIC: Denies weakness, headache, numbness, change in speech, confusion, seizures, incoordination. PSYCHIATRIC: No concerning psychosocial issues. 12 point review of systems is negative except for those stated above Patient History Medical History Bursitis Diverticulosis GERD (gastroesophageal reflux disease) Pancreatic mass Surgical History Anesthesia History of bowel resection (~2014) History of pancreatectomy (~2007) History of splenectomy (~2007) Status post delivery Status post endometrial ablation Status post hernia repair Family History Father Heart disease Mother No known health problems Family/Other Mental health problem Social History marital status: number of children: 2 household members: spouse lives independently: Yes caregiver/support person: No housing: house Smoking Status: Former smoker second hand exposure: No alcohol intake: current substance use type: does not use Smoking Status: Former smoker alcohol intake frequency: a few times a month Substance Use Type: does not use Exam Narrative Exam Narrative: GENERAL: [71] year old patient appears stated age. Well-developed patient, in mild distress. HEAD: Atraumatic. Normocephalic. EYES: Pupils equal round and reactive. Extraocular motions intact. No scleral icterus. No injection or drainage. ENT: Nose without bleeding, purulent drainage. Throat without erythema, tonsillar hypertrophy or exudate. Airway patent. NECK: Trachea midline. Non tender CARDIOVASCULAR: Regular rate and rhythm without murmurs, gallops, or rubs. RESPIRATORY: Clear to auscultation. Breath sounds equal bilaterally. No wheezes, rales, or rhonchi. GASTROINTESTINAL: Abdomen soft, epigastric tenderness with mild distention, bowel sounds present in all 4 quadrants EXTREMITIES: No edema or joint tenderness. BACK: Nontender without deformity or crepitance. No flank tenderness. NEURO: AOx3. SKIN: No rash or erythema of visible areas Initial Vital Signs Initial Vital Signs: Vital Signs Temperature 98 F 03/25/22 18:22 Pulse Rate 78 03/25/22 18:22 Respiratory Rate 22 03/25/22 18:22 Blood Pressure 154/73 H 03/25/22 18:22 Pulse Oximetry 98 03/25/22 18:22 Oxygen Delivery Method 03/25/22 18:22 Course Orders Ordered: ED Orders 03/25/22 19:21 Ammonia (NH3) Stat Complete Blood Count AUTO DIFF Stat Comprehensive Metabolic Panel Stat Lactate (Lactic Acid) Stat Lipase Stat Prothrombin Time INR Stat 03/25/22 21:00 CT angio chest abdomen pelvis Stat Discontinued Medications Acetaminophen (Acetaminophen 325 Mg Tablet) 975 mg PO NOW ONE Stop: 03/25/22 20:59 Last Admin: 03/25/22 21:16 Dose: Not Given Documented By: CHRISTIAN Hydromorphone HCl (Hydromorphone 0.5 Mg Inj) 0.5 mg IV NOW ONE Stop: 03/25/22 21:01 Last Admin: 03/25/22 21:04 Dose: 0.5 mg Documented By: CHRISTIAN Ondansetron HCl (Ondansetron 4 Mg/2 Ml Inj) 4 mg IV NOW ONE Stop: 03/25/22 20:13 Last Admin: 03/25/22 20:22 Dose: 4 mg Documented By: CHRISTIAN Ondansetron HCl (Ondansetron 4 Mg/2 Ml Inj) 4 mg IV NOW ONE Stop: 03/25/22 21:01 Last Admin: 03/25/22 21:40 Dose: Not Given Documented By: CHRISTIAN Pantoprazole Sodium (Pantoprazole 40 Mg Vial) 40 mg IV NOW ONE Stop: 03/25/22 21:01 Last Admin: 03/25/22 21:04 Dose: 40 mg Documented By: CHRISTIAN Vital Signs Vital signs: Vital Signs - 8 hr 03/25/22 18:22 03/25/22 18:37 03/25/22 22:13 Temperature 98 F Pulse Rate 78 68 73 Respiratory Rate 22 14 Blood Pressure 154/73 H 152/75 H 129/60 Pulse Oximetry 98 96 96 Oxygen Delivery Method Room Air Room Air Nasal Cannula Oxygen Flow Rate 2 MDM - Abdominal Pain Lab Data Result diagrams: 03/25/22 19:21 03/25/22 19:21 Labs: Lab Results 03/25/22 03/25/22 03/25/22 Range/Units 19:21 19:21 19:21 WBC 14.5 H (4.5-11.0) X10^3/uL RBC 4.47 (4.0-5.2) X10^6/uL Hgb 13.8 (12.0-16.0) g/dL Hct 40.3 (36-46) % MCV 90.1 (80-100) fL MCH 30.8 (26-34) PG MCHC 34.2 (30-36) % RDW 14.2 (11.6-14.8) % Plt Count 290 (150-400) X10^3/uL Neut % (Auto) 63.7 (50-75) % Lymph % (Auto) 26.3 (25-40) % [place] % (Auto) 8.4 (3-14) % Eos % (Auto) 0.9 L (2-4) % Baso % (Auto) 0.7 (0-2) % Neut # (Auto) 9200 H (2618-7495) /uL Lymph # (Auto) 3800 (4196-5064) /uL [place] # (Auto) 1200 H (0-900) /uL Eos # (Auto) 100 (0-450) /uL Baso # (Auto) 100 (0-100) /uL PT 16.0 H (10.1-12.7) SECONDS INR 1.4 H (0.9-1.3) Sodium 137 (137-145) mmol/L Potassium 3.7 D (3.4-5.1) mmol/L Chloride 98 (98-107) mmol/L Carbon Dioxide 30 (22-32) mmol/L BUN 16 (7-17) mg/dL Creatinine 0.53 (0.52-1.04) mg/dL Estimated GFR > 60 (>60) mL/min BUN/Creatinine Ratio 30.2 H (6-22) Glucose 131 H (80-110) mg/dL Lactate (0.7-2.1) mmol/L Calcium 9.9 (8.4-10.2) mg/dL Total Bilirubin 0.4 (0.2-1.3) mg/dL AST 28 (14-36) IU/L ALT 22 (<35) IU/L Alkaline Phosphatase 82 (38-126) U/L Ammonia (9-30) umol/L Total Protein 7.5 (6.3-8.2) g/dL Albumin 4.7 (3.5-5.0) g/dL Globulin 2.8 (1.7-4.1) g/dL Albumin/Globulin Ratio 1.7 (1.0-2.8) Lipase 52 (23-300) U/L 03/25/22 03/25/22 Range/Units 19:21 19:21 WBC (4.5-11.0) X10^3/uL RBC (4.0-5.2) X10^6/uL Hgb (12.0-16.0) g/dL Hct (36-46) % MCV (80-100) fL MCH (26-34) PG MCHC (30-36) % RDW (11.6-14.8) % Plt Count (150-400) X10^3/uL Neut % (Auto) (50-75) % Lymph % (Auto) (25-40) % [place] % (Auto) (3-14) % Eos % (Auto) (2-4) % Baso % (Auto) (0-2) % Neut # (Auto) (7349-2608) /uL Lymph # (Auto) (2789-6340) /uL [place] # (Auto) (0-900) /uL Eos # (Auto) (0-450) /uL Baso # (Auto) (0-100) /uL PT (10.1-12.7) SECONDS INR (0.9-1.3) Sodium (137-145) mmol/L Potassium (3.4-5.1) mmol/L Chloride (98-107) mmol/L Carbon Dioxide (22-32) mmol/L BUN (7-17) mg/dL Creatinine (0.52-1.04) mg/dL Estimated GFR (>60) mL/min BUN/Creatinine Ratio (6-22) Glucose (80-110) mg/dL Lactate 1.7 (0.7-2.1) mmol/L Calcium (8.4-10.2) mg/dL Total Bilirubin (0.2-1.3) mg/dL AST (14-36) IU/L ALT (<35) IU/L Alkaline Phosphatase (38-126) U/L Ammonia 24 (9-30) umol/L Total Protein (6.3-8.2) g/dL Albumin (3.5-5.0) g/dL Globulin (1.7-4.1) g/dL Albumin/Globulin Ratio (1.0-2.8) Lipase (23-300) U/L Imaging Data CT scan - abdomen/pelvis: Radiologist's Impression: Akiko Corrales??71??F??1950 ? Allergy/Adv: Penicillins, ciprofloxacin (More??) Close Chest/Abdomen/Pelvis CTA (Signed) Dago Solis - 03/25/22 Abdomen Ultrasound (Signed) Huan Davison - 03/21/22 Ribs X-Ray (Signed) Fátima Schaffer - 02/28/22 Bone Densitometry 08/29/21 DEXA Result 08/29/21 Abdomen/Pelvis CT (Signed) Dago Solis - 07/18/21 Mammogram Screening (Signed) Huan Davison - 06/07/[address] (Signed) Deejay Watt - 05/09/21 Wrist X-Ray (Signed) Tyrone Weller - 04/30/21 Forearm X-Ray (Signed) Deejay Watt - 04/30/21 Elbow X-Ray (Signed) Deejay Watt - 04/30/21 Mammogram Screening (Signed) Henrique Roland - 06/06/20 Telemetry Strips 10/21/19 Abdomen/Pelvis CT (Signed) Randy Vazquez - 10/03/19 Upper GI and Small Bowel X-Ray (Signed) Kranthi Sweeney - 01/31/19 KUB X-Ray (Signed) Kirit Brady - 01/30/19 KUB X-Ray (Signed) Kirit Brady - 01/29/19 Abdomen/Pelvis CT (Signed) Dago Solis - 01/28/19 [place] [address] CT Scan Report Signed Patient: Akiko Corrales MR#: [id number] : 1950 Acct:[id number] Age/Sex: 71 / F Date of Service: 03/25/22 Loc: ED Accession Number: [id number] ?? Procedure: CT angio chest abdomen pelvis Ordering Provider: Maikel Fletcher D.O. PROCEDURE:? CT ANGIO CHEST ABDOMEN PELVIS ? INDICATIONS:? abdomen pain, chest pain, back pain ? TECHNIQUE:? Precontrast 5 mm thick sections acquired from the lung apices to the iliac crests.? After the administration of intravenous contrast, 2.5 mm thick sections again acquired from the lung apices to the iliac crests.? Maximum intensity projection (MIP) oblique sagittal and coronal reformats were then acquired.? For radiation dose reduction, the following was used:? automated exposure control.? ? COMPARISON:? [facility], [place], US ABDOMEN COMPLETE, 03/21/2022, 8:40.? [facility], CT, CT ABDOMEN PELVIS W CON, 07/18/2021, 23:51. ? FINDINGS:? Image quality:? Excellent.? ? AORTA:? Noncontrast images demonstrate no evidence of intramural hematoma.? The aorta is normal in caliber and contour without intimal flaps to suggest dissection.? There is conventional branching of the aortic arch.? The visualized great vessels are normal in caliber and appear patent.? The celiac, superior mesenteric, and inferior mesenteric arteries are patent.? There are single renal arteries bilaterally which also appear patent.? The common, external, and internal iliac arteries appear patent.? The common femoral and visualized proximal superficial femoral arteries appear patent. ? CHEST:? Lower Neck: No lymphadenopathy by size criteria. Thyroid:? Visualized thyroid demonstrates no discrete nodules. Axillae: No lymphadenopathy by size criteria. Chest Wall:? Unremarkable.? ? Lungs and Airways:? No acute consolidation.? No suspicious pulmonary nodules. The trachea and central airways are patent. Pleura: No pneumothorax or pleural effusions.? ? Heart: Heart size is normal.? No pericardial effusion. Thoracic Vessels: The pulmonary arteries are normal in size with no filling defects to suggest central pulmonary embolism.? Mediastinum and Mary: No lymphadenopathy by size criteria. Esophagus: No wall thickening. No hiatal hernia. ? Lung bases:? Unremarkable.? ? Heart:? Heart is normal in size. ? ? ABDOMEN: Liver:? There is a small cyst redemonstrated within the left hepatic lobe. Gallbladder:? Within normal limits without calcified gallstones.? ? Biliary ducts:? No biliary ductal dilatation.? ? Pancreas:? Unremarkable.? ? Spleen:? Normal in size.? ? Adrenal Glands:? No adrenal nodules.? ? Kidneys and Ureters:? No hydronephrosis.? ? ? Stomach and Bowel:? There is mild segmental distention of a few small bowel loops in the mid left abdomen measuring up to 3.3 cm.? There is mild associated small bowel fecalization.? A few adjacent short segments of mild small bowel wall thickening with associated mild fat stranding and a small amount of mesenteric edema are demonstrated.? The findings likely represent an ileus secondary to an infectious or inflammatory enteritis.? No definite bowel obstruction.? The appendix is normal in appearance.? There are surgical sutures in the sigmoid colon. Peritoneum:? No abnormal intraperitoneal fluid.? No free air.? ? Ventral Wall: ? No hernia.? Abdominal Nodes:? No retroperitoneal or mesenteric adenopathy by size criteria.? Vessels:? Aorta and inferior vena cava are normal in size.? ? PELVIS: Pelvic Organs:? Unremarkable.? ? Bladder:? Unremarkable.? ? Pelvic Nodes: No enlarged lymph nodes.? Miscellaneous: No inguinal hernias are seen. ? ? ? Bones:? Visualized osseous structures demonstrate no suspicious focal lesions. ? ? IMPRESSION:? ? 1.? No evidence of aortic aneurysm or dissection. ? 2. No evidence of central pulmonary embolism. ? 3. Short segment of mild small bowel wall dilatation associated with adjacent segments of mild small bowel wall thickening, fat stranding, and mild mesenteric edema.? The findings likely represent an ileus secondary to an infectious or inflammatory enteritis. ? ? ? Dictated by: Dago Solis M.D. on 03/25/2022 at 21:57 ? ? Approved by: Dago Solis M.D. on 03/25/2022 at 22:12 ? MDM Narrative Medical decision making narrative: 71-year-old female with history of multiple prior belly surgeries, multiple prior bowel obstructions and recently diagnosed portal venous thrombosis presents with severe epigastric abdominal pain with radiation to her back that started 30 minutes after eating. Abdomen is soft, labs are largely very reassuring and advanced imaging including angiography of chest abdomen pelvis performed to rule out further vascular abnormality and other catastrophic abdominal diagnoses shows only signs of ileus versus possible early bowel obstruction. Patient has pain and is intolerant of orals, therefore will require hospitalization for ongoing management and evaluation. I discussed with admitting physician (jeanine) and sure the opinion that she is appropriate for admission with IV fluids, pain control and antiemetics, no indication for surgical consultation at this time. I did discuss potential options with both patient and her of discharge home with oral pain medication and clear liquid diet, she is very uncomfortable with that concept stating that eating triggered her pain and is barely controlled with IV meds. Discharge Plan Departure Patient Disposition: Admitted as Observation Clinical Impression: Abdominal pain, Portal vein thrombosis, Ileus Admit Date/Time: 03/25/22 22:49 Admit Provider: Johanna Hernandez
[2022-03-25 19:41] LABS: Add Manual Diff / Slide Review NO; Basophils Absolute Auto 100 /uL (0-100); Basophils Percent Auto 0.7 % (0-2); Eosinophils Absolute Auto 100 /uL (0-450); Eosinophils Percent Auto 0.9 % (2-4); Hematocrit 40.3 % (36-46); Hemoglobin 13.8 g/dL (12.0-16.0); Lymphocytes Absolute Auto 3800 /uL (1100-4500); Lymphocytes Percent Auto 26.3 % (25-40); Mean Corpuscular HGB Conc 34.2 % (30-36); Mean Corpuscular Hemoglobin 30.8 PG (26-34); Mean Corpuscular Volume 90.1 fL (80-100); Monocytes Absolute Auto 1200 /uL (0-900); Monocytes Percent Auto 8.4 % (3-14); Neutrophils Absolute Auto 9200 /uL (1500-7000); Neutrophils Percent Auto 63.7 % (50-75); Platelet Count 290 X10^3/uL (150-400); Red Blood Cell Count 4.47 X10^6/uL (4.0-5.2); Red Cell Distribution Width 14.2 % (11.6-14.8); White Blood Cell Count 14.5 X10^3/uL (4.5-11.0)
[2022-03-25 19:54] LABS: INR 1.4 (0.9-1.3)
[2022-03-25 19:58] LABS: Ammonia (NH3) 24 umol/L (9-30); Lactate (Lactic Acid) 1.7 mmol/L (0.7-2.1)
[2022-03-25] MEDS: ONDANSETRON 4 MG/2 ML INJ IV (20:22)
[2022-03-25 20:42] LABS: Alanine Aminotransferase 22 IU/L (<35); Albumin 4.7 g/dL (3.5-5.0); Albumin Globulin Ratio 1.7 (1.0-2.8); Alkaline Phosphatase 82 U/L (38-126); Aspartate Aminotransferase 28 IU/L (14-36); BUN Creatinine Ratio 30.2 (6-22); Bilirubin Total 0.4 mg/dL (0.2-1.3); Blood Urea Nitrogen 16 mg/dL (7-17); Calcium 9.9 mg/dL (8.4-10.2); Carbon Dioxide 30 mmol/L (22-32); Chloride 98 mmol/L (98-107); Estimated Glomerular Filt Rate > 60 mL/min (>60); Globulin 2.8 g/dL (1.7-4.1); Glucose 131 mg/dL (80-110); HEMOLYSIS 15 (0-50); Lipase 52 U/L (23-300); Potassium 3.7 mmol/L (3.4-5.1); Sodium 137 mmol/L (137-145); Total Protein 7.5 g/dL (6.3-8.2)
--- NOTE | 2022-03-25 21:00 | DI.CT.S_ITS ---
PROCEDURE: CT ANGIO CHEST ABDOMEN PELVIS INDICATIONS: abdomen pain, chest pain, back pain TECHNIQUE: Precontrast 5 mm thick sections acquired from the lung apices to the iliac crests. After the administration of intravenous contrast, 2.5 mm thick sections again acquired from the lung apices to the iliac crests. Maximum intensity projection (MIP) oblique sagittal and coronal reformats were then acquired. For radiation dose reduction, the following was used: automated exposure control. COMPARISON: [facility], [place], US ABDOMEN COMPLETE, 03/21/2022, 8:40. [facility], CT, CT ABDOMEN PELVIS W CON, 07/18/2021, 23:51. FINDINGS: Image quality: Excellent. AORTA: Noncontrast images demonstrate no evidence of intramural hematoma. The aorta is normal in caliber and contour without intimal flaps to suggest dissection. There is conventional branching of the aortic arch. The visualized great vessels are normal in caliber and appear patent. The celiac, superior mesenteric, and inferior mesenteric arteries are patent. There are single renal arteries bilaterally which also appear patent. The common, external, and internal iliac arteries appear patent. The common femoral and visualized proximal superficial femoral arteries appear patent. CHEST: Lower Neck: No lymphadenopathy by size criteria. Thyroid: Visualized thyroid demonstrates no discrete nodules. Axillae: No lymphadenopathy by size criteria. Chest Wall: Unremarkable. Lungs and Airways: No acute consolidation. No suspicious pulmonary nodules. The trachea and central airways are patent. Pleura: No pneumothorax or pleural effusions. Heart: Heart size is normal. No pericardial effusion. Thoracic Vessels: The pulmonary arteries are normal in size with no filling defects to suggest central pulmonary embolism. Mediastinum and Mary: No lymphadenopathy by size criteria. Esophagus: No wall thickening. No hiatal hernia. Lung bases: Unremarkable. Heart: Heart is normal in size. ABDOMEN: Liver: There is a small cyst redemonstrated within the left hepatic lobe. Gallbladder: Within normal limits without calcified gallstones. Biliary ducts: No biliary ductal dilatation. Pancreas: Unremarkable. Spleen: Normal in size. Adrenal Glands: No adrenal nodules. Kidneys and Ureters: No hydronephrosis. Stomach and Bowel: There is mild segmental distention of a few small bowel loops in the mid left abdomen measuring up to 3.3 cm. There is mild associated small bowel fecalization. A few adjacent short segments of mild small bowel wall thickening with associated mild fat stranding and a small amount of mesenteric edema are demonstrated. The findings likely represent an ileus secondary to an infectious or inflammatory enteritis. No definite bowel obstruction. The appendix is normal in appearance. There are surgical sutures in the sigmoid colon. Peritoneum: No abnormal intraperitoneal fluid. No free air. Ventral Wall: No hernia. Abdominal Nodes: No retroperitoneal or mesenteric adenopathy by size criteria. Vessels: Aorta and inferior vena cava are normal in size. PELVIS: Pelvic Organs: Unremarkable. Bladder: Unremarkable. Pelvic Nodes: No enlarged lymph nodes. Miscellaneous: No inguinal hernias are seen. Bones: Visualized osseous structures demonstrate no suspicious focal lesions. IMPRESSION: 1. No evidence of aortic aneurysm or dissection. 2. No evidence of central pulmonary embolism. 3. Short segment of mild small bowel wall dilatation associated with adjacent segments of mild small bowel wall thickening, fat stranding, and mild mesenteric edema. The findings likely represent an ileus secondary to an infectious or inflammatory enteritis. Dictated by: Dago Solis M.D. on 03/25/2022 at 21:57 Approved by: Dago Solis M.D. on 03/25/2022 at 22:12
[2022-03-25] MEDS: HYDROMORPHONE 0.5 MG INJ IV ×2 (21:04→23:50)
[2022-03-25] MEDS: PANTOPRAZOLE 40 MG VIAL IV (21:04)
[2022-03-25 22:13] VITALS: BP 129/60; PULSE 73; RESP 14; O2SAT 96
[2022-03-25 23:13] LABS: COVID19 -Nasal RAPID Negative (Negative)
[2022-03-25 23:34] VITALS: BP 128/77; PULSE 78; RESP 16; O2SAT 98
[2022-03-25 23:57] VITALS: BP 117/49; PULSE 67; RESP 18; TEMP 36.2; O2SAT 94
[2022-03-25] MEDS: SODIUM CHLORIDE 0.9% 1,000 ML 125 ML IV (23:58)
[2022-03-26 00:06] VITALS: BMI 24.2
[2022-03-26] MEDS: ONDANSETRON 4 MG/2 ML INJ IV ×2 (00:28→04:45)
[2022-03-26] MEDS: APIXABAN 5 MG TABLET 10 MG PO ×2 (00:33→08:37)
--- NOTE | 2022-03-26 00:44 | PC.ADMIT ---
Addendum entered by Pauline Scott R.N. 03/26/22 05:28: Patient complained of burning sensation in throat with frequent, intermittent cough but no emesis; medicated with Zofran and GERD like symptoms resolved. Advised to keep HOB elevated. Original Note: [email or web address] Maciej Pksamy Admission Note: The patient,Akiko Corrales,71 y/o, was given written information regarding hospital policies, unit procedures and contact persons. Patient's smoking status: Former smoker. Vital Signs - 8 hr 03/25/22 18:22 03/25/22 18:37 03/25/22 22:13 Temperature 98 F Pulse Rate 78 68 73 Respiratory Rate 22 14 Blood Pressure 154/73 H 152/75 H 129/60 Pulse Oximetry 98 96 96 Oxygen Delivery Method Room Air Room Air Nasal Cannula Oxygen Flow Rate 2 03/25/22 23:34 03/25/22 23:57 03/26/22 00:43 Temperature 97.1 F L Pulse Rate 78 67 Respiratory Rate 16 18 Blood Pressure 128/77 117/49 L Pulse Oximetry 98 94 Oxygen Delivery Method Room Air Room Air Oxygen Flow Rate 0 Patient admitted at 2357 to room 218 per stretcher from ER and transferred from stretcher into bed with SBA. Admitted related to abdominal pain radiating into back. Reports she was just recently diagnosed with blood clots on my liver and has been on Eliquis since Thursday. Is alert and oriented. Breath sounds CTA with RA sat of 94%. HRR. Complaining of nausea but no emesis; medicated with Zofran. BT hypoactive but reports having had BM yesterday. Denies dysuria with urination. Currently without abdominal pain but reports pain is intermittent and located across upper abdomen and starts as a burning pain and then becomes sharp; was medicated with Dilaudid shortly before arrival to floor. Abdomen is soft but tender to palpation. Is able to turn herself in bed. Does endorse feeling weak so instructed to call for assistance when getting out of bed; verbalizes understanding. Fall risk score is moderate but bed alarm not activated at this time. Oriented to call light and bed controls.
[2022-03-26 07:00] VITALS: BP 97/46; PULSE 62; RESP 18; TEMP 36.8; O2SAT 94
[2022-03-26] MEDS: SODIUM CHLORIDE 0.9% 1,000 ML 125 ML IV (07:46)
--- NOTE | 2022-03-26 08:28 | P.HP_ITS ---
History of Present Illness History of Present Illness Date Patient Seen: 03/26/22 Chief complaint: stomach and back pain Narrative: Pt is a 71yo woman with GERD, recent diagnosis of portal vein thrombosis and hx of diverticulosis, SBO, and s/p splenectomy who presented with acute onset of severe epigastric abdominal pain. The pt reports that last night approximately 30 minutes after eating dinner she developed severe epigastric abdominal pain that radiated strongly to her back. She had never had similar pain to her back before. The pain was sharp in nature. She denies any associated emesis, and felt only minimally nauseous. She denies any diarrhea or constipation, and did have a normal BM earlier in the day. She denies any recent fevers or chills. She came to the ED due to the severity of the pain. In the ED, the pt had lab work completed that showed an only minimally elevated WBC count but was otherwise unrevealing including normal lipase. CTA of her abdomen/pelvis showed ileus of her small intestine likely due to inflammatory vs infectious enteritis. The pt was admitted for monitoring and pain control. Of note, the pt was diagnosed with a portal vein thrombus on 03/21 and started on Eliquis at that time. The ultrasound had been ordered earlier in February due to abdominal pain, that had since resolved. Patient History Medical History Bursitis Diverticulosis GERD (gastroesophageal reflux disease) Pancreatic mass Surgical History Anesthesia History of bowel resection (~2014) History of pancreatectomy (~2007) History of splenectomy (~2007) Status post delivery Status post endometrial ablation Status post hernia repair Family & Social History Family History Father Heart disease Mother No known health problems Family/Other Mental health problem Social History: household members spouse Prior Living Arrangements House lives independently Yes caregiver/support person No Safety & Behavioral: Feels Safe in Current Yes Environment Been Physically Hurt or No Threatened By a Person Tobacco & Substance use: Tobacco type cigarettes Smoking Status Former smoker alcohol intake current alcohol intake frequency holiday/special occasion Substance Use Type does not use Meds Home Medications and Allergies Home Medications Medication Instructions Recorded Confirmed Type trazodone 50 mg tablet 100 mg PO BEDTIME #180 tabs 04/15/21 03/26/22 Rx apixaban 5 mg tablet (Eliquis) 5 mg PO DIRECTED #70 tabs 03/21/22 03/26/22 Rx Allergies Allergy/AdvReac Type Severity Reaction Status Date / Time Penicillins [PENICILLINS] Allergy Intermediate RASH Verified 03/25/22 15:01 ciprofloxacin [From CIPRO] AdvReac Mild NAUSEA, Verified 03/25/22 15:01 BURSITIS Exam Vital Signs (past 8 hours): - 03/26/22 00:43 03/26/22 07:00 Temperature 98.2 F Pulse Rate 62 Respiratory Rate 18 Blood Pressure 97/46 L Pulse Oximetry 94 Oxygen Delivery Method Room Air Oxygen Flow Rate 0 Oxygen Delivery Method Room Air Oxygen Flow Rate 0 Narrative Exam Narrative: GEN - alert, cooperative and no distress HEENT - normocephalic and atraumatic, moist mucus membranes NECK - FROM, no adenopathy HEART - RRR, S1, S2 normal, no S3 or S4, no murmurs LUNGS - symmetric chest rise, no accessory muscles, clear to auscultation bilaterally ABD - flat, nondistended, normal bowel sounds, soft, mild tenderness epigastric region without rebound/guarding/rigidity, no hepatomegaly EXT - no cyanosis, clubbing or edema SKIN - no rashes or suspicious lesions NEURO - no gross deficits Objective Labs Result Diagrams: 03/25/22 19:21 03/25/22 19:21 Labs: Laboratory Results - last 24 hr 03/25/22 03/25/22 03/25/22 19:21 19:21 19:21 WBC 14.5 H RBC 4.47 Hgb 13.8 Hct 40.3 MCV 90.1 MCH 30.8 MCHC 34.2 RDW 14.2 Plt Count 290 Neut % (Auto) 63.7 Lymph % (Auto) 26.3 Lumpkin % (Auto) 8.4 Eos % (Auto) 0.9 L Baso % (Auto) 0.7 Neut # (Auto) 9200 H Lymph # (Auto) 3800 Lumpkin # (Auto) 1200 H Eos # (Auto) 100 Baso # (Auto) 100 PT 16.0 H INR 1.4 H Sodium 137 Potassium 3.7 D Chloride 98 Carbon Dioxide 30 BUN 16 Creatinine 0.53 Estimated GFR > 60 BUN/Creatinine Ratio 30.2 H Glucose 131 H Lactate Calcium 9.9 Total Bilirubin 0.4 AST 28 ALT 22 Alkaline Phosphatase 82 Ammonia Total Protein 7.5 Albumin 4.7 Globulin 2.8 Albumin/Globulin Ratio 1.7 Lipase 52 SARS-CoV-2 (PCR) 03/25/22 03/25/22 03/25/22 19:21 19:21 22:52 WBC RBC Hgb Hct MCV MCH MCHC RDW Plt Count Neut % (Auto) Lymph % (Auto) Lumpkin % (Auto) Eos % (Auto) Baso % (Auto) Neut # (Auto) Lymph # (Auto) Lumpkin # (Auto) Eos # (Auto) Baso # (Auto) PT INR Sodium Potassium Chloride Carbon Dioxide BUN Creatinine Estimated GFR BUN/Creatinine Ratio Glucose Lactate 1.7 Calcium Total Bilirubin AST ALT Alkaline Phosphatase Ammonia 24 Total Protein Albumin Globulin Albumin/Globulin Ratio Lipase SARS-CoV-2 (PCR) Negative Assessment & Plan Assessment & Plan narrative: Pt is a 71yo woman with GERD, recent diagnosis of portal vein thrombosis and hx of diverticulosis, SBO, and s/p splenectomy who presented with acute onset of severe epigastric abdominal pain. Found on CT to have ileus, likely secondary to inflammatory vs infectious enteritis. No significant infectious symptoms at this time. 1) Ileus: Already improving significantly symptomatically, with no pain medication requirement since last night. - No indication for NG tube. Pt actually with BM this morning. - Continue to monitor for recurrent symptoms - Will gradually advance diet this morning - mIVF for now, may d/c once tolerating PO better 2) Portal vein thrombosis: - Continue PO Eliquis 3) GERD: Pt with symptoms this morning - IV protonix for now until tolerating PO well again FEN: Diet to advance as above Code: Full DVT ppx: Eliquis as above Dispo: Pending able to tolerate PO. Possible d/c later today. Time Spent With Patient Critical Care time: I spent a total of [] minutes of critical care time on this patient's care today; this time is exclusive of procedural time.
[2022-03-26] MEDS: PANTOPRAZOLE 40 MG VIAL IV (09:30)
[2022-03-26] MEDS: ACETAMINOPHEN 325 MG TABLET 650 MG PO (09:30)
--- NOTE | 2022-03-26 10:51 | CM.DANOTE ---
DCP: Case received, EMR reviewed and met with patient. Introduced self and role. Was able to obtain information regarding patient's baseline activity status at home prior to hospitalization. DCP assessment completed with information currently available. Patient is a 71 year old female who admitted yesterday evening to the care of the hospitalist team. PCP: Dr. Hernandez. Payer: confirmed: [facility] Ad[employer]. Patient came the the hospital via private vehicle secondary to bloating, abdominal pain. Patient has history of prior bowel obstructions, portal venous thrombosis. Patient holds current diagnosis of ileus, non surgical. She is here for IV fluids and pain control. Met with patient in her room. She is alert and oriented, laying in bed. Confirmed that she resides here in [place] with spouse, Mark. At her baseline, she is independent. P: DCP to continue to follow. Plan is home when deemed medically stable. Nae Borrego RN/Medical Lab Director Discharge Planning/Care Management Advanced directive, confirm from FAMILY Start: 03/26/22 00:13 Freq: Q24H Status: Active Protocol: Document 03/26/22 08:00 CM (Rec: 03/26/22 08:06 CM [id number]) Advance Directive, confirm on record Time 08:03 Person contacted Pt Copy received No CM Discharge Assessment Start: 03/26/22 10:49 Freq: Status: Active Protocol: Document 03/26/22 10:49 VM (Rec: 03/26/22 10:51 VM [id number]) Discharge Planning Assessment Assigned Inclusion Special Education Teacher Nae Borrego RN/Medical Lab Director Advance Directives? Yes Advance Directives on File No History Provided By Patient,Medical Record Prior Living Arrangements House Household Members spouse Type of transporation used prior to Drives own vehicle admit Independent with ADL's Yes Is patient alert and oriented? Yes Caregiver for Another No Barriers to Discharge No Discharge Plan Home Transportation Arrangement Spouse Referrals Initiated None needed Whiteboard Updated in Patient Room with Yes name and ext. # of Inclusion Special Education Teacher Review Status In Process Next Review Type Continued Stay Review
--- NOTE | 2022-03-26 15:53 | PC.NURSE ---
Pt is dressed and ready for discharge home with Spouse. IV has been removed. Went over d/c instructions with Pt and Spouse. No new prescriptions. Advised Pt to follow up as scheduled in [address] Hernandez. Returned Pt's own Eliquis to Spouse. Pt out via w/c by [employer] to POV with Spouse and all belongings.
== END 2022-03-26 16:16 | disposition home or self-care (01) | DRG 388 ==
LOC: ED 18:11 → AC 23:10
PROVIDERS: Admitting Provider Family Medicine; Emergency Provider Emergency Medicine; PCP Family Medicine; Visit Provider Family Medicine
DX: K56.7 Ileus, unspecified (principal); I81 Portal vein thrombosis; A09 Infectious gastroenteritis and colitis, unspecified; K21.9 Gastro-esophageal reflux disease without esophagitis; Z79.01 Long term (current) use of anticoagulants; Z87.891 Personal history of nicotine dependence; Z20.822 Contact with and (suspected) exposure to COVID-19
CPT/HCPCS: 36415; 71275; 74174; 80053; 82140; 83605; 83690; 85025; 85610; 87635; 96374; 96375; 96376; 99235; 99284; 99285; C9803; G0378; C9113; J1170; J2405; Q9967

== ENCOUNTER → 2022-06-03 11:20 | Outpatient (CLI) | payer OTHER, SELFPAY ==
[2022-06-03 14:26] LABS: Free T4, Direct Thyroxine 1.81 ng/dL (0.78-2.19)
[2022-06-03 14:49] LABS: Thyroid Stimulating Hormone < 0.015 uIU/mL (0.47-4.68)
== END ==
PROVIDERS: PCP Family Medicine; Referring Provider Internal Medicine Endocrinology, Diabetes & Metabolism; Visit Provider Internal Medicine Endocrinology, Diabetes & Metabolism
DX: Z13.9 Encounter for screening, unspecified (principal); Z83.49 Family history of other endocrine, nutritional and metabolic diseases
CPT/HCPCS: 36415; 84439; 84443

== ENCOUNTER → 2022-06-25 10:48 | Outpatient (CLI) | payer OTHER, SELFPAY ==
[2022-06-25 13:24] LABS: Free T3, Triiodothyronine Free 5.38 pg/mL (2.77-5.27)
[2022-06-25 13:38] LABS: TSH w/ Reflex to FT4 < 0.02 uIU/mL (0.47-4.68)
[2022-06-25 14:12] LABS: Free T4, Direct Thyroxine 1.95 ng/dL (0.78-2.19)
== END ==
PROVIDERS: PCP Family Medicine; Referring Provider Physician Assistant; Visit Provider Physician Assistant
DX: E03.9 Hypothyroidism, unspecified (principal); R79.89 Other specified abnormal findings of blood chemistry
CPT/HCPCS: 84439; 84443; 84481

== ENCOUNTER → 2022-07-02 11:52 | Outpatient (CLI) | payer OTHER, SELFPAY ==
--- NOTE | 2022-07-02 11:53 | DI.US.S_ITS ---
PROCEDURE: US THYROID INDICATIONS: Abnormal TSH - unchanged w/dose change TECHNIQUE: Real-time scanning was performed of the thyroid gland, with image documentation. COMPARISON: None. FINDINGS: Right: Thyroid lobe measures 5.7 x 1.7 x 1.4 cm, and is homogeneous in echotexture. Left: Thyroid lobe measures 5.3 x 1.7 x 1.1 cm, and is homogenous in echotexture. Isthmus: 2 mm thick. Nodule number: 1 Location: Right superior thyroid Size: 0.6 x 0.3 x 0.4 cm. Composition: Solid Echogenicity: Hypoechoic Shape: wider than tall. Margins: Smooth Echogenic foci: Punctate Total points: 7 ACR TI-RADS category: 5 Recommendations: Follow up imaging Q year for 5 years. Nodule number: 2 Location: Left superior thyroid Size: 0.4 x 0.5 x 0.3 cm. Composition: Predominantly solid Echogenicity: Hypoechoic Shape: wider than tall. Margins: Smooth Echogenic foci: Punctate Total points: 7 ACR TI-RADS category: 5 Recommendations: Follow-up imaging Q year for 5 years. IMPRESSION: Bilateral thyroid nodules with follow-up recommendations as above. ACR TI-RADS definitions and recommendations: TI-RADS 1 (benign): 0 points. FNA not needed. TI-RADS 2 (not suspicious): 2 points. FNA not needed. TI-RADS 3 (mildly suspicious): 3 points. * FNA if 2.5 cm or larger, follow up if 1.5 cm or larger (at 1, 3, and 5 years). TI-RADS 4 (moderately suspicious): 4-6 points. * FNA if 1.5 cm or larger, follow up if 1 cm or larger (at 1, 2, 3, and 5 years). TI-RADS 5 (highly suspicious): 7 points or more. * FNA if 1 cm or larger, follow up if 0.5 cm or larger (every year for 5 years). Dictated by: Randy Vazquez M.D. on 07/02/2022 at 15:35 Transcribed by: ZOË on 07/02/2022 at 15:37 Approved by: Randy Vazquez M.D. on 07/02/2022 at 16:46
--- NOTE | 2022-07-02 11:53 | DI.MG.S_ITS ---
BILATERAL DIGITAL DIAGNOSTIC MAMMOGRAM 3D/2D: 07/02/2022 CLINICAL: Right breast pain. Comparison is made to exams dated: 06/07/2021 mammogram, 06/06/2020 mammogram - [facility], 07/30/2018 mammogram, and 09/11/2016 mammogram - outside location. There are scattered areas of fibroglandular density in both breasts (category b / 25%-50% glandular tissue). There is a heterogeneous rim calcification in the right breast at 6 o'clock middle depth. There also is an irregular asymmetry in the right breast middle depth lateral region seen on the craniocaudal view only. This is not significantly changed. No other significant masses, calcifications, or other findings are seen in either breast. IMPRESSION: INCOMPLETE: NEEDS ADDITIONAL IMAGING EVALUATION The heterogeneous rim calcification in the right breast at 6 o'clock middle depth resembles fat necrosis and is indeterminate. The irregular asymmetry in the right breast middle depth lateral region seen on the craniocaudal view only resembles a post-surgical scar and is indeterminate. Patient reports diffuse right breast pain. A targeted ultrasound is recommended and will immediately follow. Based on the Tyrer Cuzick model (a risk assessment model) the patient's lifetime risk is 5.4% and her 10 year risk is 3.4%. According to the ACR, ACS, and NCCN guidelines, an annual breast MRI exam along with mammogram is recommended if the patient's lifetime risk is 20% or greater. This exam was interpreted at Station ID: [id number]. NOTE: For mammograms, a report in lay terms will be sent to the patient. Approximately 15% of breast malignancies will not be visualized mammographically. In the management of a palpable breast mass, a negative mammogram must not discourage biopsy of a clinically suspicious lesion. Electronically Signed By: Alex Ortez M.D. slc/:07/02/2022 12:36:06 ACR BI-RADS Category 0: Incomplete [id number]
--- NOTE | 2022-07-02 11:53 | DI.US.S_ITS ---
LIMITED ULTRASOUND OF RIGHT BREAST AND AXILLA: 07/02/2022 CLINICAL: Patient returns today to evaluate two focal asymmetries in the right breast. Comparison is made to exams dated: 07/02/2022 mammogram, 06/07/2021 mammogram, 06/06/2020 mammogram - [facility], 07/30/2018 mammogram, and 09/11/2016 mammogram - outside location. Color flow and real-time ultrasound of the right breast 6 o'clock, 10 o'clock, and axilla regions were performed. Victor scale images of the real-time examination were reviewed. There is a 1.1 cm x 0.9 cm x 0.7 cm oval mass in the right breast at 6 o'clock middle depth 4 cm from the nipple. This oval mass is heterogeneously echogenic. This correlates with mammography findings. There are related rim calcifications. Color flow imaging demonstrates that there is vascularity present. There also is a benign oval area of fibroglandular tissue in the right breast at 10 o'clock middle depth. This correlates with mammography findings. No significant abnormalities were seen sonographically in the right axilla. IMPRESSION: SUSPICIOUS OF MALIGNANCY The 1.1 cm x 0.9 cm x 0.7 cm oval mass in the right breast at 6 o'clock middle depth has a differential diagnosis of fat necrosis and is suspicious of malignancy. An ultrasound guided biopsy is recommended. The oval area of fibroglandular tissue in the right breast at 10 o'clock middle depth is benign. Right axillary node is within normal limits. Exam findings were discussed with the patient by Dr. Gonsales. This exam was interpreted at Station ID: [id number]. Electronically Signed By: Alex Ortez M.D. [facility] [place]/:07/02/2022 14:01:25 letter sent: Biopsy Required Ultrasound BI-RADS: 4 Suspicious for malignancy
== END ==
PROVIDERS: PCP Family Medicine; Referring Provider Physician Assistant; Visit Provider Physician Assistant
DX: R92.1 Mammographic calcification found on diagnostic imaging of breast (principal); N64.4 Mastodynia; N63.15 Unspecified lump in the right breast, overlapping quadrants; R92.8 Other abnormal and inconclusive findings on diagnostic imaging of breast; E04.2 Nontoxic multinodular goiter; R79.89 Other specified abnormal findings of blood chemistry
CPT/HCPCS: 76536; 76642; 77066; G0279

== ENCOUNTER → 2022-07-14 07:40 | Outpatient (CLI) | payer OTHER, SELFPAY ==
--- NOTE | 2022-07-14 | PATH_ITS ---
[facility] Accession Number: [id number] No. of containers..01 Tissue . 01 Material submitted: . breast - RIGHT BREAST 6:00 4 CM FN . 01 Diagnosis: Right Breast Mass at 6 o'clock, 4 cm from Nipple, Needle Core Biopsy: Fibroconnective and fibroadipose tissue with fat necrosis, pleomorphoic calcifications, and foreign body giant cell reaction. No well-preserved breast tissue definitively identified. No significant atypia or proliferation identified. MRV 07/17/2022 0916 Local . 01 Comment: Results discussed with Dr. David Walker's nurse, on 07/16/2022 at approximately 11:50 a.m. . As part of ongoing water quality control engineer, this case is also reviewed by Dr. Sonu Jordan, who concurs with the given interpretation. . 01 Electronically signed: . Michelle Suresh MD, Pathologist NPI- [id number] . 01 Gross description: . Received one formalin-filled container, labeled with the patient's name and right breast 6 o'clock 4 cm FN. The specimen is received with a plastic filter in container, sample loose in container and consists of multiple yellow-mathur to mathur-sánchez, rough, cylindrical-shaped portions of tissue which range in size from 0.7 x 0.3 x 0.3 cm to 1.5 x 0.3 x 0.3 cm. The specimen is entirely submitted in one cassette. Possible collection date and time per requisition: 07/14/22 at 9:04. Total fixation time: Approximately 16 hours. ([id number]) /FRR 07/15/20229 Local . 01 Pathologist provided ICD-10: N63.10, R92.[address] [facility] . [id number] Specimen Comment: A courtesy copy of this report has been sent to [phone] Performed at: 01 [facility] [address] [place] [address] [id number] MD Dago Jane MD Phone: [phone]
--- NOTE | 2022-07-14 | DI.MG.S_ITS ---
UNILATERAL RIGHT DIGITAL DIAGNOSTIC MAMMOGRAM 3D/2D POST-NEEDLE BIOPSY: 07/14/2022 CLINICAL: Right breast lump. Comparison is made to exams dated: 07/02/2022 ultrasound, 07/14/2022 ultrasound biopsy, 07/02/2022 mammogram, 06/07/2021 mammogram, and 06/06/2020 mammogram - [facility]. There are scattered areas of fibroglandular density in the right breast (category b / 25%-50% glandular tissue). There is a marker clip in the appropriate position in the right breast at 6 o'clock middle depth. This marker clip placement is at the biopsy site. IMPRESSION: POST PROCEDURE MAMMOGRAM FOR MARKER PLACEMENT There was a successful marker clip placement in the right breast middle depth. Based on the Tyrer Cuzick model (a risk assessment model) the patient's lifetime risk is 5.4% and her 10 year risk is 3.4%. According to the ACR, ACS, and NCCN guidelines, an annual breast MRI exam along with mammogram is recommended if the patient's lifetime risk is 20% or greater. This exam was interpreted at Station ID: [id number]. NOTE: For mammograms, a report in lay terms will be sent to the patient. Approximately 15% of breast malignancies will not be visualized mammographically. In the management of a palpable breast mass, a negative mammogram must not discourage biopsy of a clinically suspicious lesion. Electronically Signed By: Huan mendez/del:07/14/2022 11:34:45 ACR BI-RADS Category Post-procedure mammogram for marker placement
--- NOTE | 2022-07-14 07:41 | DI.US.S_ITS ---
ULTRASOUND GUIDED BIOPSY RIGHT BREAST USING VACUUM DEVICE WITH MARKING DEVICE INSERTED AND POST DIGITAL MAMMOGRAPHIC AND ULTRASOUND IMAGIN07/14/2022 CLINICAL: Right breast mass. PATIENT CONSENT: Risks (minor bleeding, infection, vasovagal reaction and repeat procedure), benefits and alternatives were explained to the patient and written informed consent was obtained. Correlation is made to exams dated: 07/14/2022 mammogram, 07/02/2022 ultrasound, 07/02/2022 mammogram, 06/07/2021 mammogram, and 06/06/2020 mammogram - [facility]. An ultrasound guided biopsy using real-time ultrasound was performed for the 1.1 cm x 0.9 cm x 0.7 cm mass with calcifications located in the right breast at 6 o'clock middle depth 4 cm from the nipple. This was described on the previous mammography and ultrasound reports. The skin was prepped in the usual manner. Local anesthetic was administered to the access site. A skin jacqueline was made in the breast. The abnormality was approached from the lateral aspect. A 13 gauge biopsy needle was placed adjacent to the abnormality under ultrasound guidance. Once the needle was documented to be in the correct location, three specimens were obtained using the Mammotome biopsy system. A clip was inserted into the biopsy cavity. A sterile dressing was applied to the access site. Post procedure digital mammographic and ultrasound imaging demonstrates the location device at the targeted area. The specimens were sent to the laboratory for pathological analysis. Of note, the lesion collapsed after the first sample was taken, which suggests the lesion was partially or completely cystic. IMPRESSION: ULTRASOUND GUIDED BIOPSY BENIGN Ultrasound guided biopsy of the 1.1 cm x 0.9 cm x 0.7 cm mass in the right breast at 6 o'clock middle depth 4 cm from the nipple was successful with no apparent post procedure complications. Pathology indicates benign Fibroconnective and fibroadipose tissue with fat necrosis, pleomorphoic calcifications, and foreign body giant cell reaction. No well-preserved breast tissue definitively identified. No significant atypia or proliferation identified. Pathology results are concordant with imaging findings. Return to annual mammogram screening schedule is recommended. This exam was interpreted at Station ID: [id number]. Huan Davison M.D. ar/:07/21/2022 10:32:07
== END ==
PROVIDERS: PCP Family Medicine; Referring Provider Family Medicine; Visit Provider Family Medicine
DX: N63.15 Unspecified lump in the right breast, overlapping quadrants (principal); N64.1 Fat necrosis of breast
CPT/HCPCS: 19083; 77065

== ENCOUNTER → 2022-08-12 06:41 | Outpatient (CLI) | payer OTHER, SELFPAY ==
--- NOTE | 2022-08-12 06:42 | DI.US.S_ITS ---
PROCEDURE: US ABDOMEN COMPLETE INDICATIONS: RE-EVALUATE PORTAL VEIN THROMBOSIS TECHNIQUE: Real-time scanning was performed of the abdominal and retroperitoneal organs, with image documentation. COMPARISON: [facility], CT, CT ANGIO CHEST ABDOMEN PELVIS, 03/25/2022, 21:07. [facility], US, US ABDOMEN COMPLETE, 03/21/2022, 8:40. FINDINGS: Liver: The liver demonstrates normal size. The liver is mildly heterogeneous. Within the left lobe of the liver there is a simple cyst seen that measures up to 1.4 cm. The previously seen portal vein thrombosis is no longer seen. The main portal vein, the right and left portal veins, and the right, mid, and left hepatic veins each appear normal. The appendix artery likewise appears normal. Gallbladder: No findings of gallstones or sludge are seen. The gallbladder wall is not thickened, measuring 3 mm or less. No specific pericholecystic fluid is seen. The sonographic Obando sign is negative. Biliary ducts: Intrahepatic bile ducts are non-dilated. Extrahepatic bile duct caliber measures 5 mm. Normal is 6-7 mm or less in diameter, or 10 mm or less post-cholecystectomy. Pancreas: Visualized portions of the pancreas are sonographically normal. The pancreatic tail has been removed. Spleen: Removed. Kidneys: Kidneys are normal in size and echotexture. Right kidney measures 9.6 cm long; left kidney measures 10.2 cm long. No hydronephrosis or nephrolithiasis. No solid masses. Aorta: Visualized aorta is normal in caliber at less than 3 cm. Iliacs: Proximal common iliac arteries are normal in caliber at less than 2.5 cm. IVC: Intrahepatic inferior vena cava is patent. Miscellaneous: No free abdominal fluid. IMPRESSION: The previously seen portal vein thrombosis has resolved. Additional findings: 1.4 cm simple appearing left liver cyst Pancreatic tail resection Splenectomy Dictated by: Tyrone Weller M.D. on 08/12/2022 at 10:15 Approved by: Tyrone Weller M.D. on 08/12/2022 at 10:19
== END ==
PROVIDERS: PCP Family Medicine; Referring Provider Internal Medicine Medical Oncology; Visit Provider Internal Medicine Medical Oncology
DX: I81 Portal vein thrombosis (principal); K76.89 Other specified diseases of liver; Z90.81 Acquired absence of spleen
CPT/HCPCS: 76700

== ENCOUNTER → 2022-08-18 10:05 | Outpatient (CLI) | payer OTHER, SELFPAY ==
[2022-08-18 11:48] LABS: Free T4, Direct Thyroxine 0.95 ng/dL (0.78-2.19)
[2022-08-18 12:01] LABS: Thyroid Stimulating Hormone 0.692 uIU/mL (0.47-4.68)
== END ==
PROVIDERS: PCP Family Medicine; Referring Provider Internal Medicine Endocrinology, Diabetes & Metabolism; Visit Provider Internal Medicine Endocrinology, Diabetes & Metabolism
DX: R76.8 Other specified abnormal immunological findings in serum (principal)
CPT/HCPCS: 36415; 84439; 84443

== ENCOUNTER → 2022-11-05 13:50 | Outpatient (CLI) | payer OTHER, SELFPAY ==
[2022-11-05 15:08] LABS: HEMOLYSIS < 15 (0-50); Iron 116 ug/dL (37-170)
[2022-11-05 15:19] LABS: Percent Iron Saturation 30 % (15-50); Total Iron Binding Capacity 392 ug/dL (265-497); Transferrin 281 mg/dL (206-381)
[2022-11-05 15:44] LABS: Ferritin 30 ng/mL (11-264)
[2022-11-05 15:58] LABS: Vitamin B12 892 pg/mL (239-931)
[2022-11-06 03:18] LABS: Labcorp Hemoglobin (Hb) A1c 5.8 % (4.8-5.6)
== END ==
PROVIDERS: PCP Family Medicine; Referring Provider Physician Assistant; Visit Provider Physician Assistant
DX: R53.83 Other fatigue; R73.03 Prediabetes
CPT/HCPCS: 36415; 82607; 82728; 83036; 83540; 83550

== ENCOUNTER → 2022-12-01 11:27 | Outpatient (CLI) | payer OTHER, SELFPAY ==
--- NOTE | 2022-12-01 11:28 | DI.RAD.S_ITS ---
PROCEDURE: XR KUB INDICATIONS: Persistent constipation - new onset x 8 weeks TECHNIQUE: One view of the abdomen acquired. COMPARISON: [facility], CR, XR KUB, 01/30/2019, 8:14. FINDINGS: Surgical changes and devices: None. Bowel: Bowel gas pattern is normal. Moderate fecal debris throughout the colon Soft tissues: No suspicious abdominal calcifications. Visualized solid organ contours appear normal in size. Bones: No suspicious bony lesions. IMPRESSION: Moderate fecal debris throughout the colon. No obstruction Approved by: Pb Michelle M.D. on 12/01/2022 at 18:34
== END ==
PROVIDERS: PCP Family Medicine; Referring Provider Physician Assistant; Visit Provider Physician Assistant
DX: K59.00 Constipation, unspecified (principal)
CPT/HCPCS: 74018

== ENCOUNTER → 2022-12-08 15:03 | Outpatient (CLI) | payer OTHER, SELFPAY ==
--- NOTE | 2022-12-08 15:04 | DI.US.S_ITS ---
PROCEDURE: US THYROID INDICATIONS: Abnormal US 06/2022 Yearly f/u recommended TECHNIQUE: Real-time scanning was performed of the thyroid gland, with image documentation. COMPARISON: [facility], US, US THYROID, 07/02/2022, 13:26. FINDINGS: Right: 4.9 x 1.5 x 1.3 cm. Left: 5.2 x 1.4 x 1.2 cm. Isthmus: 3.3 mm. Nodule number: 1 Right superior nodule measures 5 x 3 x 3 mm. It is solid and hypoechoic with punctate echogenic foci, stable. Nodule number: 2 Left superior thyroid nodule measures 4 x 4 x 2 mm. It is solid and hypoechoic with punctate echogenic foci, stable. Both of these are TI-RADS category 5, although stability and small size are relatively reassuring. IMPRESSION: Non enlarging small thyroid nodules. ACR TI-RADS definitions and recommendations: TI-RADS 1 (benign): 0 points. FNA not needed. TI-RADS 2 (not suspicious): 2 points. FNA not needed. TI-RADS 3 (mildly suspicious): 3 points. * FNA if 2.5 cm or larger, follow up if 1.5 cm or larger (at 1, 3, and 5 years). TI-RADS 4 (moderately suspicious): 4-6 points. * FNA if 1.5 cm or larger, follow up if 1 cm or larger (at 1, 2, 3, and 5 years). TI-RADS 5 (highly suspicious): 7 points or more. * FNA if 1 cm or larger, follow up if 0.5 cm or larger (every year for 5 years). Dictated by: Cheo Hoff M.D. on 12/08/2022 at 16:43 Approved by: Cheo Hoff M.D. on 12/08/2022 at 16:45
== END ==
PROVIDERS: PCP Family Medicine; Referring Provider Physician Assistant; Visit Provider Physician Assistant
DX: E04.2 Nontoxic multinodular goiter (principal)
CPT/HCPCS: 76536

== ENCOUNTER 2023-03-17 09:17 | Emergency (ER) | payer OTHER, SELFPAY ==
[2023-03-17 09:45] VITALS: BP 148/83; PULSE 69; RESP 17; TEMP 36.5; O2SAT 97; BMI 24.0
--- NOTE | 2023-03-17 10:29 | ED_ITS ---
HPI - Abdominal Pain General Chief Complaint: Abdominal Pain Stated Complaint: pain in rib cage and back Time Seen by Provider: 03/17/23 10:01 Source: patient Mode of arrival: Family Vehicle Limitations: no limitations History of Present Illness HPI narrative: 72-year-old female comes in with complaint right upper quadrant pain that now radiates to the left and around to both sides. States it has been present for the past 4-5 days. Has not been resolving. Patient states this feels very similar to when she had her portal vein thrombosis although that was only on the right side. She states that was in the last year she was on Eliquis for 6 month and told she could stop. She states he never told her why she developed thrombosis. She states no fevers no chills denies any nausea or vomiting. No diarrhea or constipation, no black or bloody stools. No dysuria urgency or frequency. No lower abdominal pain. She denies any pain up in her chest or shortness of breath. Denies pleuritic pain. Patient states she recently started Wellbutrin in the past 2 days and is on trazodone daily as her only daily medications. 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 She defers anything for pain states she has not been taking anything regularly. Former tobacco, occasional alcohol, no recreational drugs. Patient's primary care is Dr. Hernandez. Related Data Previous Rx's Medication Instructions Recorded trazodone 50 mg tablet See Rx Instructions .Route 12/01/22 .COMPLEX #180 tabs empagliflozin 10 mg tablet 10 mg PO DAILY #30 tabs 01/20/23 (Jardiance) semaglutide 3 mg tablet (Rybelsus) 3 mg PO DAILY #30 tabs 02/10/23 bupropion HCl 150 mg 24 hr tablet, 150 mg PO QAM #30 tabs 03/16/23 extended release apixaban 5 mg (74 tabs) tablets in See Rx Instructions PO .COMPLEX 03/17/23 a dose pack (Eliquis DVT-PE Treat #74 ea 30D Start) Allergies Allergy/AdvReac Type Severity Reaction Status Date / Time Penicillins [PENICILLINS] Allergy Intermediate RASH Verified 01/20/23 10:59 ciprofloxacin [From CIPRO] AdvReac Mild NAUSEA, Verified 01/20/23 10:59 BURSITIS Review of Systems Review of Systems ROS Unobtainable: All systems reviewed & are unremarkable except as noted in HPI and below Patient History Medical History GERD (gastroesophageal reflux disease) Bursitis Diverticulosis Pancreatic mass Surgical History Anesthesia History of bowel resection (~2014) History of pancreatectomy (~2007) Status post endometrial ablation History of splenectomy (~2007) Status post hernia repair Status post delivery Family History Father Heart disease Mother No known health problems Family/Other Mental health problem Social History marital status: number of children: 2 household members: spouse lives independently: Yes caregiver/support person: No housing: house Smoking Status: Former smoker second hand exposure: No alcohol intake: current substance use type: does not use Smoking Status: Former smoker alcohol intake frequency: holidays/special occasions only Substance Use Type: does not use Exam Narrative Exam Narrative: GENERAL: Alert and oriented x three, mild distress. HEENT: Head normocephalic, atraumatic, EOMI, pupils reactive, face symmetric, moist mucous membranes NECK: Supple, full range of motion CARDIOVASCULAR: Regular rate and rhythm without murmurs, rubs or gallops. RESPIRATORY: Breath sounds equal bilaterally, no wheezes rales or rhonchi. ABDOMEN: Soft, nontender. Nondistended. Normoactive bowel sounds all 4 quadrants. No guarding or rebound, rigidity, no mass : No CVA tenderness EXTREMITIES: Normal range of motion, no clubbing or edema. Neurovascularly intact NEUROLOGICAL: Cranial nerves II through XII grossly intact. Moving all extremities. Normal gait. SKIN: Warm, dry, no petechiae, no rashes or lesions. Initial Vital Signs Initial Vital Signs: Vital Signs Temperature 97.7 F 03/17/23 09:45 Pulse Rate 69 03/17/23 09:45 Respiratory Rate 17 03/17/23 09:45 Blood Pressure 148/83 H 03/17/23 09:45 Pulse Oximetry 97 03/17/23 09:45 Oxygen Delivery Method Room Air 03/17/23 09:45 Course Orders Ordered: Discontinued Medications Apixaban (Apixaban 5 Mg Tablet) 10 mg PO BID ONE Stop: 03/17/23 13:45 Last Admin: 03/17/23 13:49 Dose: 10 mg Documented By: ANASTACIO Vital Signs Vital signs: Vital Signs - 8 hr 03/17/23 09:45 03/17/23 11:33 03/17/23 11:33 Temperature 97.7 F Pulse Rate 69 66 Respiratory Rate 17 Blood Pressure 148/83 H 142/65 H Pulse Oximetry 97 98 Oxygen Delivery Method Room Air 03/17/23 12:00 03/17/23 12:00 03/17/23 12:30 Temperature Pulse Rate 61 Respiratory Rate Blood Pressure 129/60 122/58 L Pulse Oximetry 98 Oxygen Delivery Method 03/17/23 12:30 03/17/23 13:51 03/17/23 13:52 Temperature Pulse Rate 58 L 68 Respiratory Rate Blood Pressure 135/86 Pulse Oximetry 98 96 Oxygen Delivery Method 03/17/23 13:52 Temperature Pulse Rate 68 Respiratory Rate Blood Pressure Pulse Oximetry 96 Oxygen Delivery Method MDM - Abdominal Pain Lab Data 03/17/23 11:46 03/17/23 11:46 Labs: Lab Results 03/17/23 Range/Units 11:46 WBC 9.4 (4.5-11.0) X10^3/uL RBC 4.57 (4.0-5.2) X10^6/uL Hgb 13.8 (12.0-16.0) g/dL Hct 41.0 (36-46) % MCV 89.7 (80-100) fL MCH 30.3 (26-34) PG MCHC 33.8 (30-36) % RDW 14.2 (11.6-14.8) % Plt Count 272 (150-400) X10^3/uL Neut % (Auto) 45.8 L (50-75) % Lymph % (Auto) 38.9 (25-40) % [place] % (Auto) 13.1 (3-14) % Eos % (Auto) 1.0 L (2-4) % Baso % (Auto) 1.2 (0-2) % Neut # (Auto) 4300 (8964-3113) /uL Lymph # (Auto) 3600 (1026-1466) /uL [place] # (Auto) 1200 H (0-900) /uL Eos # (Auto) 100 (0-450) /uL Baso # (Auto) 100 (0-100) /uL Plt Morphology Comment RBC Morphology Normal morphology Sodium 137 (137-145) mmol/L Potassium 4.1 (3.4-5.1) mmol/L Chloride 100 (98-107) mmol/L Carbon Dioxide 30 (22-32) mmol/L BUN 15 (7-17) mg/dL Creatinine 0.60 (0.52-1.04) mg/dL Estimated GFR > 60 (>60) mL/min BUN/Creatinine Ratio 25.0 H (6-22) Glucose 96 (80-110) mg/dL Calcium 9.8 (8.4-10.2) mg/dL Total Bilirubin 0.6 (0.2-1.3) mg/dL AST 26 (14-36) IU/L ALT 17 (<35) IU/L Alkaline Phosphatase 68 (38-126) U/L Total Protein 7.8 (6.3-8.2) g/dL Albumin 4.5 (3.5-5.0) g/dL Globulin 3.3 (1.7-4.1) g/dL Albumin/Globulin Ratio 1.4 (1.0-2.8) Lipase 55 (23-300) U/L Point of care testing: Urine Dip Bedside Urine Glucose Negative Bedside Urine Bilirubin - Negative Bedside Urine Ketone - Negative Urine Specific Benedict 1.005 Bedside Urine Occult Blood - Negative Bedside Urine pH 6.0 Bedside Urine Protein - Negative Bedside Urine Urobilinogen - Negative Bedside Urine Nitrite - Negative Bedside Urine Leukocytes - Negative Esterase Imaging Data US - abdomen: Radiologist's Impression: [address] [address] Ultrasound Report Signed Patient: Akiko Corrales MR#: [id number] : 1950 Acct:[id number] Age/Sex: 72 / F Date of Service: 03/17/23 Loc: ED Accession Number: [id number] Procedure: US abdomen complete Ordering Provider: Claudine House D.O. PROCEDURE: US ABDOMEN COMPLETE INDICATIONS: RUQ PAIN; HX PORTAL VEIN THROMBOSIS TECHNIQUE: Real-time scanning was performed of the abdominal and retroperitoneal organs, with image documentation. COMPARISON: [facility], US, US ABDOMEN COMPLETE, 08/12/2022, 6:50. FINDINGS: Liver: Liver is normal in size and homogeneous in echotexture. Increased echo and no venous waveforms noted in the main portal vein and intrahepatic right portal vein, consistent with portal vein thrombosis Gallbladder: Sonolucent without evidence cholelithiasis, gallbladder wall thickening or pericholecystic fluid. No sonographic Obando sign. Biliary ducts: Intrahepatic bile ducts are non-dilated. Extrahepatic bile duct caliber measures 3 mm. Normal is 6-7 mm or less in diameter, or 10 mm or less post-cholecystectomy. Pancreas: Visualized portions of the pancreas are sonographically normal. Spleen: Splenectomy Kidneys: Kidneys are normal in size and echotexture. Right kidney measures 10.0 cm long; left kidney measures 8.9 cm long. No hydronephrosis or nephrolithiasis. No solid masses. Aorta: Visualized aorta is normal in caliber at less than 3 cm. Iliacs: Proximal common iliac arteries are normal in caliber at less than 2.5 cm. IVC: Intrahepatic inferior vena cava is patent. Miscellaneous: No free abdominal fluid. IMPRESSION: Positive portal vein thrombosis involves the main portal vein and right portal vein. Left portal vein not well visualized. Splenectomy. Approved by: Pb Michelle M.D. on 03/17/2023 at 10:49 ECG Data Attestation: I personally reviewed and interpreted this ECG as follows: Interpretation: Sinus rhythm rate of 60 [place] 178 QRS is 72 QTC of 406. No acute ST elevation or depression appreciated nonspecific change. MDM Narrative Medical decision making narrative: Sodium 2-year-old female presents with complaint of abdominal pain right and left-sided right being around. Patient has had a history of portal vein thrombosis and worry about reoccurrence she states at that time it was more right-sided. She is also had a splenectomy and partial pancreas removed after having mass in her pancreas many years ago. Patient states she was on Eliquis for about 6 months she followed up with Dr. Bustos from Hematology had a very large hypercoagulable workup which he states was negative. Had repeat imaging which showed a resolved and had been told she could stop her Eliquis. She is been off of it for several months. Patient states she never followed with any other specialists. Labs today are otherwise appropriate, she is hemodynamically stable. We will restart patient on Eliquis 10 mg twice daily for 7 days then moved to 5 mg twice daily. Plan for referral back to Oncology/Hematology. Case was discussed with Gastroenterology, Dr. Brito. [facility], he recommends follow up with Hematology Oncology continue with anticoagulation. Does not need any special follow up with Gastroenterology and all if patient's follow up be with Heme-Onc. Discussed with patient she saw Dr. Bustos before, discussed she can return to that group he is no longer working there but they can follow with her. Discharge Plan Departure Patient Disposition: Home Clinical Impression: Deep vein thrombosis of portal vein Activity Restrictions/Additional Instructions: Please follow up with Hematology. I did speak with Gastroenterology, they state does not need any specialized follow up with Gastroenterology would recommend follow up with Hematology/Oncology. Take Eliquis 10 mg every 12 hours x7 days, then changed to 5 mg every 12 hours until cleared by either gastroenterology or Hematology. Prescription sent to [facility] in [place]. Please return for new or worsening abdominal back or flank pain, chest pain or shortness of breath, lightheadedness or passing out, persistent nausea or vomiting, black or bloody stools or other new or concerning changes. Prescriptions: New Eliquis DVT-PE Treat 30D Start 5 mg (74 tabs) tablets,dose pack See Rx Instructions .ROUTE .COMPLEX Qty: 74 0RF Rx Instructions: orally per package directions No Action Jardiance 10 mg tablet 10 mg PO DAILY Qty: 30 2RF trazodone 50 mg tablet See Rx Instructions .ROUTE .COMPLEX Qty: 180 2RF Dose Instruction: take 2 tablets by mouth AT BEDTIME Rx Instructions: take 2 tablets by mouth AT BEDTIME Rybelsus 3 mg tablet 3 mg PO DAILY Qty: 30 0RF Rx Instructions: 3 mg once daily for 30 days, then increase to 7 mg once daily bupropion HCl 150 mg tablet extended release 24 hr 150 mg PO QAM Qty: 30 2RF Referrals: Johanna Hernandez MD [Primary Care Provider] - David Cam MD [Physician] - Stand Alone Forms: Patient Portal/API
--- NOTE | 2023-03-17 11:27 | PC.NURSE ---
pt refusing IV; pt reports being a hard stick and only wanting an US IV and would prefer a lab draw if possible. Dr. House aware; per amandeep okay for lab draw only at this time
[2023-03-17 11:33] VITALS: BP 142/65; PULSE 66; O2SAT 98
[2023-03-17 12:00] VITALS: BP 129/60; PULSE 61; O2SAT 98
[2023-03-17 12:07] LABS: Basophils Absolute Auto 100 /uL (0-100); Basophils Percent Auto 1.2 % (0-2); Eosinophils Absolute Auto 100 /uL (0-450); Hemoglobin 13.8 g/dL (12.0-16.0); Lymphocytes Absolute Auto 3600 /uL (1100-4500); Lymphocytes Percent Auto 38.9 % (25-40); Mean Corpuscular HGB Conc 33.8 % (30-36); Mean Corpuscular Hemoglobin 30.3 PG (26-34); Mean Corpuscular Volume 89.7 fL (80-100); Monocytes Absolute Auto 1200 /uL (0-900); Monocytes Percent Auto 13.1 % (3-14); Neutrophils Absolute Auto 4300 /uL (1500-7000); Neutrophils Percent Auto 45.8 % (50-75); Platelet Count 272 X10^3/uL (150-400); Red Blood Cell Count 4.57 X10^6/uL (4.0-5.2); Red Cell Distribution Width 14.2 % (11.6-14.8); White Blood Cell Count 9.4 X10^3/uL (4.5-11.0)
[2023-03-17 12:08] LABS: Add Manual Diff / Slide Review SLIDE REVIEW
[2023-03-17 12:16] LABS: Alanine Aminotransferase 17 IU/L (<35); Albumin 4.5 g/dL (3.5-5.0); Albumin Globulin Ratio 1.4 (1.0-2.8); Alkaline Phosphatase 68 U/L (38-126); Aspartate Aminotransferase 26 IU/L (14-36); Bilirubin Total 0.6 mg/dL (0.2-1.3); Blood Urea Nitrogen 15 mg/dL (7-17); Calcium 9.8 mg/dL (8.4-10.2); Carbon Dioxide 30 mmol/L (22-32); Chloride 100 mmol/L (98-107); Estimated Glomerular Filt Rate > 60 mL/min (>60); Globulin 3.3 g/dL (1.7-4.1); Glucose 96 mg/dL (80-110); HEMOLYSIS < 15 (0-50); Lipase 55 U/L (23-300); Potassium 4.1 mmol/L (3.4-5.1); Sodium 137 mmol/L (137-145); Total Protein 7.8 g/dL (6.3-8.2)
[2023-03-17 12:20] LABS: RBC Morphology Normal Morphology
[2023-03-17 12:30] VITALS: BP 122/58; PULSE 58; O2SAT 98
[2023-03-17] MEDS: APIXABAN 5 MG TABLET 10 MG PO (13:49)
[2023-03-17 13:51] VITALS: PULSE 68; O2SAT 96
[2023-03-17 13:52] VITALS: BP 135/86; PULSE 68; O2SAT 96
== END 2023-03-17 14:20 | disposition home or self-care (01) ==
PROVIDERS: Emergency Provider Emergency Medicine; PCP Family Medicine
DX: I81 Portal vein thrombosis (principal)
CPT/HCPCS: 36415; 76700; 80053; 81003; 83690; 85025; 93005; 93010; 99283; 99284

== ENCOUNTER → 2023-04-08 11:23 | Outpatient (CLI) | payer OTHER, SELFPAY | PROVIDERS: PCP Family Medicine; Referring Provider Family Medicine; Visit Provider Family Medicine | DX: R73.03 Prediabetes (principal) | CPT/HCPCS: 36415; 83036 ==

== ENCOUNTER → 2023-04-13 08:09 | Outpatient (CLI) | payer OTHER, SELFPAY ==
--- NOTE | 2023-04-13 08:11 | DI.RAD.S_ITS ---
PROCEDURE: XR ANKLE RT MIN 3V INDICATIONS: Ankle injury TECHNIQUE: 3 views of the ankle were acquired. COMPARISON: None. FINDINGS: Bones: The ankle joint appears intact. Small avulsion fragment is seen at the dorsal talus. Soft tissues: No suspicious calcifications. IMPRESSION: Avulsion fracture fragment seen at the dorsal talus. Dictated by: Choe Hoff M.D. on 04/13/2023 at 12:24 Approved by: Cheo Hoff M.D. on 04/13/2023 at 12:24
--- NOTE | 2023-04-13 08:11 | DI.RAD.S_ITS ---
PROCEDURE: XR FOOT RT MIN 3V INDICATIONS: Foot injury TECHNIQUE: 3 views of the foot were acquired. COMPARISON: None. FINDINGS: Bones: Possible deformity at the lateral portion of the 5th proximal phalangeal head. No other displaced fracture or dislocation identified. On lateral view, suspected small avulsion fragment seen at the dorsal talus. Soft tissues: No suspicious calcifications. IMPRESSION: Suspected small avulsion fragment seen on lateral view at the dorsal talus. On frontal view, possible age-indeterminate 5th proximal phalangeal head deformity. Correlate with point tenderness in these regions. Dictated by: Cheo Hoff M.D. on 04/13/2023 at 12:14 Approved by: Cheo Hoff M.D. on 04/13/2023 at 12:16
== END ==
PROVIDERS: PCP Family Medicine; Referring Provider Nurse Practitioner Family; Visit Provider Nurse Practitioner Family
DX: S92.151A Displaced avulsion fracture (chip fracture) of right talus, initial encounter for closed fracture (principal); X58.XXXA Exposure to other specified factors, initial encounter
CPT/HCPCS: 73610; 73630

== ENCOUNTER 2023-06-27 18:46 | Inpatient (IN) | payer OTHER, SELFPAY ==
[2023-06-27 18:52] VITALS: BP 173/77; PULSE 67; RESP 16; TEMP 36.5; O2SAT 97; BMI 24.0
--- NOTE | 2023-06-27 20:16 | PC.NURSE ---
Attempted IV start times 2.
--- NOTE | 2023-06-27 20:58 | ED_ITS ---
HPI - Abdominal Pain General Chief Complaint: Abdominal Pain Stated Complaint: Abd Pain Time Seen by Provider: 06/27/23 20:57 Source: patient Mode of arrival: Ambulatory Limitations: no limitations History of Present Illness HPI narrative: 72-year-old female former smoker, history of GERD, small-bowel obstruction, diverticulitis and portal vein thrombosis on Eliquis. Patient presents with complaint of abdominal pain that started this evening around 630. Patient states sort of throughout the abdomen little bit on both sides in the back. She is felt bloated. She states it feels somewhat similar to when she had an ileus and bowel obstruction in the past. Patient states he has not taken anything for pain. Denies fevers, cold cough or congestion. Had some nausea but no vomiting. Did have a small bowel movement this evening just before coming. She has had bowel movements regularly in the last few days. No issues with black or bloody stools. No dysuria urgency or frequency. No chest pain or shortness of breath. Patient does continue on Eliquis she takes this regularly, she is on trazodone for sleep. 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 Allergic to penicillin. No tobacco, alcohol or recreational drugs. Patient was very difficult IV stick unable to get any blood after 3 tries and patient defers any more attempts. Related Data Previous Rx's Medication Instructions Recorded trazodone 50 mg tablet See Rx Instructions .Route 12/01/22 .COMPLEX #180 tabs apixaban 5 mg tablet 5 mg PO BID #180 tabs 03/18/23 Allergies Allergy/AdvReac Type Severity Reaction Status Date / Time Penicillins [PENICILLINS] Allergy Intermediate RASH Verified 04/29/23 14:15 ciprofloxacin [From CIPRO] AdvReac Mild NAUSEA, Verified 04/29/23 14:15 BURSITIS Review of Systems Review of Systems ROS Unobtainable: All systems reviewed & are unremarkable except as noted in HPI and below Patient History Medical History GERD (gastroesophageal reflux disease) Bursitis Diverticulosis Pancreatic mass Surgical History Anesthesia History of bowel resection (~2014) History of pancreatectomy (~2007) Status post endometrial ablation History of splenectomy (~2007) Status post hernia repair Status post delivery Family History Father Heart disease Mother No known health problems Family/Other Mental health problem Social History marital status: number of children: 2 household members: spouse lives independently: Yes caregiver/support person: No housing: house Smoking Status: Former smoker second hand exposure: No alcohol intake: current substance use type: does not use Smoking Status: Former smoker alcohol intake frequency: holidays/special occasions only Substance Use Type: does not use Exam Narrative Exam Narrative: GENERAL: Alert and oriented x three, female in mild distress. HEENT: Head normocephalic, atraumatic, EOMI, pupils reactive, face symmetric, moist mucous membranes NECK: Supple, full range of motion CARDIOVASCULAR: Regular rate and rhythm without murmurs, rubs or gallops. RESPIRATORY: Breath sounds equal bilaterally, no wheezes rales or rhonchi. ABDOMEN: Soft, mild generalized tenderness. Nondistended. Normoactive bowel sounds all 4 quadrants. No guarding or rebound, rigidity, no mass : No CVA tenderness EXTREMITIES: Normal range of motion, no clubbing or edema. Neurovascularly intact NEUROLOGICAL: Cranial nerves II through XII grossly intact. Moving all extremities SKIN: Warm, dry, no petechiae, no rashes or lesions. Initial Vital Signs Initial Vital Signs: Vital Signs Temperature 97.7 F 06/27/23 18:52 Pulse Rate 67 06/27/23 18:52 Respiratory Rate 16 06/27/23 18:52 Blood Pressure 173/77 H 06/27/23 18:52 Pulse Oximetry 97 06/27/23 18:52 Oxygen Delivery Method Room Air 06/27/23 18:52 Course Orders Ordered: ED Orders 06/27/23 21:20 XR abdomen min 2V Stat 06/27/23 22:22 Complete Blood Count AUTO DIFF Stat Comprehensive Metabolic Panel Stat Lactate (Lactic Acid) Stat Lipase Stat Procalcitonin Stat 06/27/23 22:25 CT abdomen pelvis w con Stat 06/27/23 22:30 Respiratory Panel (Film Array) Stat 06/27/23 22:45 Blood Culture Stat Sodium Chloride (Normal Saline 0.9%) 1,000 mls @ 150 mls/hr IV CONT [facility] Last Admin: 06/28/23 01:16 Dose: 150 mls/hr Documented By: Acetaminophen (Ofirmev) 1,000 mg in 100 mls @ 400 mls/hr IV Q6H PRN PRN Reason: pain Last Admin: 06/28/23 04:31 Dose: 400 mls/hr Documented By: Ondansetron HCl (Ondansetron 4 Mg/2 Ml Inj) 4 mg IV NOW PRN PRN Reason: Nausea And Vomiting Ondansetron HCl (Ondansetron 4 Mg Odt) 4 mg PO NOW PRN PRN Reason: Nausea And Vomiting Last Admin: 06/27/23 22:07 Dose: 4 mg Documented By: RUCHI Ondansetron HCl (Ondansetron 4 Mg/2 Ml Inj) 4 mg IV Q6HR [facility] Last Admin: 06/28/23 00:50 Dose: 4 mg Documented By: RUCHI Discontinued Medications Sodium Chloride (Normal Saline 0.9%) 1,000 mls @ 1,000 mls/hr IV BOLUS ONE Stop: 06/27/23 23:10 Last Infusion: 06/28/23 00:03 Dose: Infused Documented By: Admin: 06/27/23 22:32 Dose: 1,000 mls/hr Documented By: RUCHI Acetaminophen (Ofirmev) 1,000 mg in 100 mls @ 400 mls/hr IV NOW ONE Stop: 06/27/23 17:20 Last Infusion: 06/27/23 22:44 Dose: Infused Documented By: Admin: 06/27/23 22:32 Dose: 400 mls/hr Documented By: RUCHI Vital Signs Vital signs: Vital Signs - 8 hr 06/27/23 22:40 06/27/23 23:00 06/27/23 23:00 Temperature 99.3 F Pulse Rate 70 70 Respiratory Rate 18 Blood Pressure 150/71 H 112/71 Pulse Oximetry 93 93 06/27/23 23:30 06/27/23 23:31 06/27/23 23:31 Temperature Pulse Rate 72 72 Respiratory Rate 19 Blood Pressure 120/59 L Pulse Oximetry 92 91 MDM - Abdominal Pain Lab Data 06/27/23 22:22 06/27/23 22:22 Labs: Lab Results 06/27/23 06/27/23 Range/Units 22:22 22:30 WBC 17.9 H (4.5-11.0) X10^3/uL RBC 4.90 (4.0-5.2) X10^6/uL Hgb 14.7 (12.0-16.0) g/dL Hct 44.5 (36-46) % MCV 90.8 (80-100) fL MCH 29.9 (26-34) PG MCHC 33.0 (30-36) % RDW 14.2 (11.6-14.8) % Plt Count 349 (150-400) X10^3/uL Neut % (Auto) 76.9 H (50-75) % Lymph % (Auto) 14.5 L (25-40) % Swisher % (Auto) 7.4 (3-14) % Eos % (Auto) 0.7 L (2-4) % Baso % (Auto) 0.5 (0-2) % Neut # (Auto) 28636 H (6066-6044) /uL Lymph # (Auto) 2600 (6460-4048) /uL Swisher # (Auto) 1300 H (0-900) /uL Eos # (Auto) 100 (0-450) /uL Baso # (Auto) 100 (0-100) /uL Sodium 139 (137-145) mmol/L Potassium 3.8 (3.4-5.1) mmol/L Chloride 102 (98-107) mmol/L Carbon Dioxide 28 (22-32) mmol/L BUN 21 H (7-17) mg/dL Creatinine 0.54 (0.52-1.04) mg/dL Estimated GFR > 60 (>60) mL/min BUN/Creatinine Ratio 38.9 H (6-22) Glucose 140 H (80-110) mg/dL Lactate 1.6 (0.7-2.1) mmol/L Calcium 10.2 (8.4-10.2) mg/dL Total Bilirubin 0.8 (0.2-1.3) mg/dL AST 31 (14-36) IU/L ALT 19 (<35) IU/L Alkaline Phosphatase 104 (38-126) U/L Total Protein 8.5 H (6.3-8.2) g/dL Albumin 4.7 (3.5-5.0) g/dL Globulin 3.8 (1.7-4.1) g/dL Albumin/Globulin Ratio 1.2 (1.0-2.8) Lipase 60 (23-300) U/L Procalcitonin 0.05 (<0.5) ng/mL Chlamy pneumoniae PCR Not detected (Not Detect) Adenovirus (PCR) Not detected (Not Detect) B.parapertussis DNA PCR Not detected (Not Detecte) Coronavirus OC43 (PCR) Not detected (Not Detect) Coronavirus HKU1 (PCR) Not detected (Not Detect) Coronavirus 229E (PCR) Not detected (Not Detect) SARS-CoV-2 (PCR) Not detected (Not Detecte) Coronavirus NL63 (PCR) Not detected (Not Detect) Human Metapneumovir PCR Not detected (Not Detect) Influenza Type A (PCR) Not detected (Not Detect) Influenza Type B (PCR) Not detected (Not Detect) M. pneumoniae (PCR) Not detected (Not Detect) Parainfluenza 1 (PCR) Not detected (Not Detect) Parainfluenza 2 (PCR) Not detected (Not Detect) Parainfluenza 3 (PCR) Not detected (Not Detect) Parainfluenza 4 (PCR) Not detected (Not Detect) RSV (PCR) Not detected (Not Detect) Entero/Rhino (PCR) Not detected (Not Detect) Point of care testing: Urine Dip Bedside Urine Glucose Negative Bedside Urine Bilirubin - Negative Urine Specific [place] 1.10 Bedside Urine Occult Blood - Negative Bedside Urine pH 6.5 Bedside Urine Protein - Negative Bedside Urine Urobilinogen - Negative Bedside Urine Nitrite - Negative Bedside Urine Leukocytes - Negative Esterase Imaging Data Abdominal x-ray: Radiologist's Impression: Close Abdomen X-Ray (Signed) Tyrone Weller - 06/27/23 Launch?[address] [address] XRay Report Signed Patient: Akiko Corrales MR#: [id number] : 1950 Acct:[id number] Age/Sex: 72 / F Date of Service: 06/27/23 Loc: ED Accession Number: [id number] Procedure: XR abdomen min 2V Ordering Provider: Claudine House D.O. PROCEDURE: XR ABDOMEN MIN 2V INDICATIONS: abd pain, hx bowel obstruction, no v/stooling TECHNIQUE: 2 views of the abdomen were acquired. COMPARISON: [facility], CT, CT CHEST ABDOMEN PELVIS WITH CONTRAST, 04/09/2023, 11:16. FINDINGS: Surgical changes and devices: None. Bowel: No pneumoperitoneum. The small bowel gas pattern is normal. There is a moderate volume of stool seen within the colon. Soft tissues: No masses; visualized solid organ contours appear normal in size. No suspicious abdominal calcifications. Bones: No suspicious bony abnormalities. Age-appropriate bony degenerative changes are seen. IMPRESSION: There is a moderate amount of stool seen within the colon. Please correlate with an underlying history of constipation. No abnormal small bowel loops are seen. Dictated by: Tyrone Weller M.D. on 06/27/2023 at 20:47 Approved by: Tyrone Weller M.D. on 06/27/2023 at 20:48 CT scan - abdomen/pelvis: Radiologist's Impression: [place] [address] CT Scan Report Signed Patient: Akiko Corrales MR#: [id number] : 1950 Acct:[id number] Age/Sex: 72 / F Date of Service: 06/27/23 Loc: ED Accession Number: [id number] Procedure: CT abdomen pelvis w con Ordering Provider: Claudine House D.O. PROCEDURE: CT ABDOMEN PELVIS W CON INDICATIONS: abd pain, vomiting, hx bowel obstruction hxportal vein throm TECHNIQUE: After the administration of intravenous contrast, axial sections acquired from the lung bases to the pubic symphysis. Coronal and sagittal reformats were performed. For radiation dose reduction, the following was used: automated exposure control, adjustment of mA and/or kV according to patient size. COMPARISON: [facility], CT, CT CHEST ABDOMEN PELVIS WITH CONTRAST, 04/09/2023, 11:16. [facility], US, US PELVIC COMPLETE WITH TRANSVAGINAL, 05/28/2023, 13:44. [facility], CT, CT ABDOMEN PELVIS W CON, 07/18/2021, 23:51. FINDINGS: Image quality: Diagnostic. Lower Chest: No significant findings. ABDOMEN: Liver: No solid mass. No portal vein thrombosis can be seen. Gallbladder: No radiopaque gallstones or wall thickening. Biliary ducts: No biliary dilation. Pancreas: No ductal dilation. The distal pancreas has been resected. Spleen: Removed. Adrenal Glands: No adrenal nodules. Kidneys and Ureters: No hydronephrosis. No solid mass. No complex renal cystic lesion which requires follow up. Stomach and Bowel: Dilated loops of fluid-filled proximal small bowel are seen that measure up to 3.3 cm. The distal small bowel is decompressed. A transition point can be seen within the left lower quadrant, as on series 2, image 54. There is a rectal anastomotic staple line seen. The colon is otherwise within normal limits. No appendix (either normal or abnormal) is identified on this study. The stomach demonstrates no significant abnormality. Peritoneum: No abnormal intraperitoneal fluid. No free air. Ventral Wall: No significant ventral hernia. Abdominal Nodes: No retroperitoneal or mesenteric adenopathy by size criteria. Vessels: Aorta and inferior vena cava are normal in size. PELVIS: Pelvic Organs: The uterus appears normal for age. A 2.4 cm right adnexal cyst is again seen, which is slightly decreased in size compared to the prior. Bladder: No bladder wall thickening, accounting for underdistention. Pelvic Nodes: No enlarged lymph nodes. Miscellaneous: No inguinal hernias are seen. Bones: No aggressive osseous abnormality. S-shaped scoliotic curvature is seen. Focal L4-L5 degenerative change IMPRESSION: There is a small-bowel obstruction is seen, with a transition point seen within the left lower quadrant. Negative for portal vein thrombosis. Additional findings: Partial pancreatectomy Splenectomy 2.4 cm right adnexal cyst, decreased in size from the prior Rectal anastomotic staple line Dictated by: Tyrone Weller M.D. on 06/27/2023 at 22:37 Approved by: Tyrone Weller M.D. on 06/27/2023 at 22:44 ECG Data Attestation: I personally reviewed and interpreted this ECG as follows: Prior ECG tracings: available for review Interpretation: Sinus rhythm rate of 68 [place] 160 QRS is 70 QTC of 429. No acute ST changes appreciated patient has prior from 03/17/2023 which appears similar. MDM Narrative Medical decision making narrative: 72-year-old female comes in with complaint abdominal pain concern for bowel obstruction no obstructive symptoms other than pain at this time. She has not had history of portal vein thrombosis but has been taking her Eliquis regularly. She is slightly hypertensive but otherwise appropriate vitals. Patient's urine is negative. Several attempts for IV were unsuccessful patient does not wish to pursue. Discussed options can do an x-ray for screening this is not particularly sensitive for bowel obstruction in a early standpoint. Can do CT KUB but also has not the gold standard. Could do oral contrast with CT but would take some time. Patient elects for x-ray screening but aware of limitations. X-ray shows stool no sign of obstruction. Discussed return precautions. Offered pain management patient defers at this time. Patient vomited right before discharge, shaky and after discussion is willing to try zofran. Repeat vitals After long discussion patient is reluctant for intervention but open to attempting to have a midline placed with service, labs and further workup will also send a respiratory panel. Discussed with patient I can put a central line in or a larger line but currently vitals are appropriate and will hold off. Dr. Schaeffer, asks for admission to medicine. Happy to consult. Can hold off for NG unless she starts having more persistent vomiting. Dr. Curtis accepts for admission for Dr. Hernandez. Will do bridging orders overnight discussed surgery recommendations Discharge Plan Departure Patient Disposition: Home Clinical Impression: Abdominal pain
--- NOTE | 2023-06-27 21:20 | DI.RAD.S_ITS ---
PROCEDURE: XR ABDOMEN MIN 2V INDICATIONS: abd pain, hx bowel obstruction, no v/stooling TECHNIQUE: 2 views of the abdomen were acquired. COMPARISON: [facility], CT, CT CHEST ABDOMEN PELVIS WITH CONTRAST, 04/09/2023, 11:16. FINDINGS: Surgical changes and devices: None. Bowel: No pneumoperitoneum. The small bowel gas pattern is normal. There is a moderate volume of stool seen within the colon. Soft tissues: No masses; visualized solid organ contours appear normal in size. No suspicious abdominal calcifications. Bones: No suspicious bony abnormalities. Age-appropriate bony degenerative changes are seen. IMPRESSION: There is a moderate amount of stool seen within the colon. Please correlate with an underlying history of constipation. No abnormal small bowel loops are seen. Dictated by: Tyrone Weller M.D. on 06/27/2023 at 20:47 Approved by: Tyrone Weller M.D. on 06/27/2023 at 20:48
--- NOTE | 2023-06-27 21:30 | PC.NURSE ---
to xray per wc
[2023-06-27] MEDS: ONDANSETRON 4 MG ODT PO (22:07)
--- NOTE | 2023-06-27 22:25 | DI.CT.S_ITS ---
PROCEDURE: CT ABDOMEN PELVIS W CON INDICATIONS: abd pain, vomiting, hx bowel obstruction hxportal vein throm TECHNIQUE: After the administration of intravenous contrast, axial sections acquired from the lung bases to the pubic symphysis. Coronal and sagittal reformats were performed. For radiation dose reduction, the following was used: automated exposure control, adjustment of mA and/or kV according to patient size. COMPARISON: [facility], CT, CT CHEST ABDOMEN PELVIS WITH CONTRAST, 04/09/2023, 11:16. [facility], US, US PELVIC COMPLETE WITH TRANSVAGINAL, 05/28/2023, 13:44. [facility], CT, CT ABDOMEN PELVIS W CON, 07/18/2021, 23:51. FINDINGS: Image quality: Diagnostic. Lower Chest: No significant findings. ABDOMEN: Liver: No solid mass. No portal vein thrombosis can be seen. Gallbladder: No radiopaque gallstones or wall thickening. Biliary ducts: No biliary dilation. Pancreas: No ductal dilation. The distal pancreas has been resected. Spleen: Removed. Adrenal Glands: No adrenal nodules. Kidneys and Ureters: No hydronephrosis. No solid mass. No complex renal cystic lesion which requires follow up. Stomach and Bowel: Dilated loops of fluid-filled proximal small bowel are seen that measure up to 3.3 cm. The distal small bowel is decompressed. A transition point can be seen within the left lower quadrant, as on series 2, image 54. There is a rectal anastomotic staple line seen. The colon is otherwise within normal limits. No appendix (either normal or abnormal) is identified on this study. The stomach demonstrates no significant abnormality. Peritoneum: No abnormal intraperitoneal fluid. No free air. Ventral Wall: No significant ventral hernia. Abdominal Nodes: No retroperitoneal or mesenteric adenopathy by size criteria. Vessels: Aorta and inferior vena cava are normal in size. PELVIS: Pelvic Organs: The uterus appears normal for age. A 2.4 cm right adnexal cyst is again seen, which is slightly decreased in size compared to the prior. Bladder: No bladder wall thickening, accounting for underdistention. Pelvic Nodes: No enlarged lymph nodes. Miscellaneous: No inguinal hernias are seen. Bones: No aggressive osseous abnormality. S-shaped scoliotic curvature is seen. Focal L4-L5 degenerative change IMPRESSION: There is a small-bowel obstruction is seen, with a transition point seen within the left lower quadrant. Negative for portal vein thrombosis. Additional findings: Partial pancreatectomy Splenectomy 2.4 cm right adnexal cyst, decreased in size from the prior Rectal anastomotic staple line Dictated by: Tyrone Weller M.D. on 06/27/2023 at 22:37 Approved by: Tyrone Weller M.D. on 06/27/2023 at 22:44
[2023-06-27] MEDS: SODIUM CHLORIDE 0.9% 1,000 ML 1000 ML IV (22:32)
[2023-06-27] MEDS: ACETAMINOPHEN IV 1,000 MG/100 ML VIAL 400 MG IV (22:32)
[2023-06-27 22:40] VITALS: BP 150/71; PULSE 70; RESP 18; TEMP 37.4; O2SAT 93
[2023-06-27 22:42] LABS: Add Manual Diff / Slide Review NO; Basophils Absolute Auto 100 /uL (0-100); Basophils Percent Auto 0.5 % (0-2); Eosinophils Absolute Auto 100 /uL (0-450); Eosinophils Percent Auto 0.7 % (2-4); Hematocrit 44.5 % (36-46); Hemoglobin 14.7 g/dL (12.0-16.0); Lymphocytes Absolute Auto 2600 /uL (1100-4500); Lymphocytes Percent Auto 14.5 % (25-40); Mean Corpuscular Hemoglobin 29.9 PG (26-34); Mean Corpuscular Volume 90.8 fL (80-100); Monocytes Absolute Auto 1300 /uL (0-900); Monocytes Percent Auto 7.4 % (3-14); Neutrophils Absolute Auto 13800 /uL (1500-7000); Neutrophils Percent Auto 76.9 % (50-75); Platelet Count 349 X10^3/uL (150-400); Red Cell Distribution Width 14.2 % (11.6-14.8); White Blood Cell Count 17.9 X10^3/uL (4.5-11.0)
--- NOTE | 2023-06-27 22:44 | PC.NURSE ---
pt states nausea improved after medication
[2023-06-27 22:50] LABS: Alanine Aminotransferase 19 IU/L (<35); Albumin 4.7 g/dL (3.5-5.0); Albumin Globulin Ratio 1.2 (1.0-2.8); Alkaline Phosphatase 104 U/L (38-126); Aspartate Aminotransferase 31 IU/L (14-36); BUN Creatinine Ratio 38.9 (6-22); Bilirubin Total 0.8 mg/dL (0.2-1.3); Blood Urea Nitrogen 21 mg/dL (7-17); Calcium 10.2 mg/dL (8.4-10.2); Carbon Dioxide 28 mmol/L (22-32); Chloride 102 mmol/L (98-107); Estimated Glomerular Filt Rate > 60 mL/min (>60); Globulin 3.8 g/dL (1.7-4.1); Glucose 140 mg/dL (80-110); HEMOLYSIS < 15 (0-50); Lipase 60 U/L (23-300); Potassium 3.8 mmol/L (3.4-5.1); Sodium 139 mmol/L (137-145); Total Protein 8.5 g/dL (6.3-8.2)
[2023-06-27 22:58] LABS: Lactate (Lactic Acid) 1.6 mmol/L (0.7-2.1)
[2023-06-27 23:00] VITALS: BP 112/71; PULSE 70; O2SAT 93
--- NOTE | 2023-06-27 23:10 | PC.NURSE ---
to radiology per stretcher
[2023-06-27 23:16] LABS: Procalcitonin 0.05 ng/mL (<0.5)
[2023-06-27 23:22] LABS: Adenovirus Not Detected (Not Detect); B. parapertussis Not Detected (Not Detecte); Bordetella pertussis Not Detected (Not Detect); Chlamydophila pneumoniae Not Detected (Not Detect); Coronavirus 229E Not Detected (Not Detect); Coronavirus HKU1 Not Detected (Not Detect); Coronavirus NL 63 Not Detected (Not Detect); Coronavirus OC43 Not Detected (Not Detect); Human Metapneumovirus Not Detected (Not Detect); Human Rhinovirus/Enterovirus Not Detected (Not Detect); Influenza A Not Detected (Not Detect); Influenza B Not Detected (Not Detect); Mycoplasma pneumoniae Not Detected (Not Detect); Parainfluenza Virus 1 Not Detected (Not Detect); Parainfluenza Virus 2 Not Detected (Not Detect); Parainfluenza Virus 3 Not Detected (Not Detect); Parainfluenza Virus 4 Not Detected (Not Detect); Respiratory Syncytial Virus Not Detected (Not Detect); SARS- CoV-2 Not Detected (Not Detecte)
[2023-06-27 23:30] VITALS: PULSE 72; O2SAT 92
[2023-06-27 23:31] VITALS: BP 120/59; PULSE 72; RESP 19; O2SAT 91
[2023-06-28] VITALS: PULSE 67; O2SAT 97
[2023-06-28 00:01] VITALS: BP 143/67; PULSE 68; RESP 18; O2SAT 97
[2023-06-28 00:30] VITALS: PULSE 69; O2SAT 96
[2023-06-28 00:31] VITALS: BP 122/56; PULSE 69; RESP 18; O2SAT 96
[2023-06-28] MEDS: ONDANSETRON 4 MG/2 ML INJ IV (00:50)
[2023-06-28] MEDS: SODIUM CHLORIDE 0.9% 1,000 ML 150 ML IV (01:16)
[2023-06-28 01:25] VITALS: BMI 24.0
[2023-06-28] MEDS: ACETAMINOPHEN IV 1,000 MG/100 ML VIAL 400 MG IV (04:31)
--- NOTE | 2023-06-28 07:59 | PM.HP.1 ---
History of Present Illness History of Present Illness Date Patient Seen: 06/28/23 Time Patient Seen: 08:02 Chief complaint: Abd Pain Narrative: 72-year-old female former smoker with history of previous small-bowel obstruction, diverticulitis and portal vein thrombosis on Eliquis who presented overnight with abdominal pain. Surgical hx includes: prior bowel resection in 2014, prior pancreatectomy in 2007, prior splenectomy in 2007, and previous hernia repair and CS delivery. Pain was noted throughout the abdomen and into the back. She also noted bloating. The pain felt very similar to when she had an ileus and bowel obstruction previously. She endorses some nausea but no vomiting prior to arrival to the ER but during workup in the ER she did begin vomiting. In the ER abdominal x-ray showed moderate amount of stool within the colon. CT abdomen pelvis showed a small bowel obstruction with transition point within the left lower quadrant. Surgery was consulted and requested admission to medicine service with surgery consult. They recommended holding off on NG for the time being. This morning, Akiko is feeling significantly improved. She is no longer experiencing any abdominal pain and is passing gas. She is no longer bloated. She feels ready to go home. [facility] Medical History (Updated 06/28/23 @ 09:25 by Romelia Curtis MD) Small bowel obstruction GERD (gastroesophageal reflux disease) Bursitis Diverticulosis Pancreatic mass Surgical History Anesthesia History of bowel resection (~2014) History of pancreatectomy (~2007) Status post endometrial ablation History of splenectomy (~2007) Status post hernia repair Status post delivery Family History Father Heart disease Mother No known health problems Family/Other Mental health problem Social History marital status: number of children: 2 household members: spouse lives independently: Yes caregiver/support person: No housing: house Smoking Status: Former smoker second hand exposure: No alcohol intake: current substance use type: does not use Meds Home Medications and Allergies Home Medications Medication Instructions Recorded Confirmed Type trazodone 50 mg tablet See Rx Instructions .Route 12/01/22 06/28/23 Rx .COMPLEX #180 tabs apixaban 5 mg tablet 5 mg PO BID #180 tabs 03/18/23 06/28/23 Rx Allergies Allergy/AdvReac Type Severity Reaction Status Date / Time Penicillins [PENICILLINS] Allergy Intermediate RASH Verified 04/29/23 14:15 ciprofloxacin [From CIPRO] AdvReac Mild NAUSEA, Verified 04/29/23 14:15 BURSITIS Review of Systems Review of Systems Narrative: Denies nausea/vomiting Denies abd pain Denes bloating No BM but is passing gas Exam Vital Signs (past 8 hours): - 06/28/23 00:00 06/28/23 00:01 06/28/23 00:01 Pulse Rate 67 68 Respiratory Rate 18 Blood Pressure 143/67 H Pulse Oximetry 97 97 06/28/23 00:30 06/28/23 00:31 06/28/23 00:31 Pulse Rate 69 69 Respiratory Rate 18 Blood Pressure 122/56 L Pulse Oximetry 96 96 Oxygen Delivery Method Room Air Narrative Exam Narrative: GEN: Healthy appearing, well-developed, NAD. PSYCH: Good Judgment. AOx3. Normal memory, mood, and affect HEENT: -Head: NC/AT -Eyes: No discharge or redness CV: warm and well perfused LUNGS: breathing comfortably on RA ABD: non-distended, normal bowel sounds, non-tender, no organomegaly SKIN: Warm, well perfused. No skin rashes or abnormal lesions MSK: laying in bed comfortably. No deformities NEURO: No focal deficits Objective Labs 06/27/23 22:22 06/27/23 22:22 Labs: Laboratory Results - last 24 hr 06/27/23 06/27/23 22:22 22:30 WBC 17.9 H RBC 4.90 Hgb 14.7 Hct 44.5 MCV 90.8 MCH 29.9 MCHC 33.0 RDW 14.2 Plt Count 349 Neut % (Auto) 76.9 H Lymph % (Auto) 14.5 L [place] % (Auto) 7.4 Eos % (Auto) 0.7 L Baso % (Auto) 0.5 Neut # (Auto) 10272 H Lymph # (Auto) 2600 [place] # (Auto) 1300 H Eos # (Auto) 100 Baso # (Auto) 100 Sodium 139 Potassium 3.8 Chloride 102 Carbon Dioxide 28 BUN 21 H Creatinine 0.54 Estimated GFR > 60 BUN/Creatinine Ratio 38.9 H Glucose 140 H Lactate 1.6 Calcium 10.2 Total Bilirubin 0.8 AST 31 ALT 19 Alkaline Phosphatase 104 Total Protein 8.5 H Albumin 4.7 Globulin 3.8 Albumin/Globulin Ratio 1.2 Lipase 60 Procalcitonin 0.05 Chlamy pneumoniae PCR Not detected Adenovirus (PCR) Not detected B.parapertussis DNA PCR Not detected Coronavirus OC43 (PCR) Not detected Coronavirus HKU1 (PCR) Not detected Coronavirus 229E (PCR) Not detected SARS-CoV-2 (PCR) Not detected Coronavirus NL63 (PCR) Not detected Human Metapneumovir PCR Not detected Influenza Type A (PCR) Not detected Influenza Type B (PCR) Not detected M. pneumoniae (PCR) Not detected Parainfluenza 1 (PCR) Not detected Parainfluenza 2 (PCR) Not detected Parainfluenza 3 (PCR) Not detected Parainfluenza 4 (PCR) Not detected RSV (PCR) Not detected Entero/Rhino (PCR) Not detected Assessment & Plan Assessment and plan (1) Small bowel obstruction: Status: Acute Plan 72-year-old female with history of multiple abdominal surgeries, portal vein thrombosis on Eliquis and prior small-bowel obstruction who presented with abdominal pain and was found to have imaging findings on CT suggestive of small-bowel obstruction. Overnight she was made NPO and given IV fluids. This morning she is feeling significantly better and is wanting to go home. 1. Small bowel obstruction: Suspect related to adhesions from multiple abdominal surgeries. Symptoms significantly improved with overnight IV fluids. Bloating and distention has resolved as has her pain. She would like to go home. I would like her to tolerate some p.o. intake prior to discharge. We will discuss with surgery who was consulted overnight and recommended admission prior to advancing diet -surgery consulted, Dr. Schaeffer, appreciate recommendations -defer to surgery for diet advancing, suspect that we will be able to advance today and discontinue IV fluids at that time -once tolerating p.o., okay for discharge home from medicine standpoint 2. Portal vein thrombosis -continue Eliquis DVT ppx: continue home eliquis tx dose
--- NOTE | 2023-06-28 10:28 | PM.CALLCOV.1 ---
Call Coverage Note Note Date of Patient Contact: 06/28/23 Time of Patient Contact: 10:28 Narrative of Care Provided: Admitted for SBO that is resolving prior to my visit. Recommend advance diet as tolerated.
--- NOTE | 2023-06-28 10:35 | CM.DANOTE ---
Initial DCP Assessment Visit Note Reviewed EMR and team rounds for status updates. Met with pt/spouse at bedside to introduce self and role. Pt found to be alert/oriented, expressing readiness to return home once medically cleared. Spouse will transport. Payor: [facility] Adv PCP: Dr. Hernandez Pt is a 72 year-old F who presented to the ED last evening with complaints of worsening abdominal pain. She has a PMH of small bowel obstruction, diverticulitis, and GERD among other comorbidities. CT of Abd/Pelvis in the ED was positive for a small bowel obstruction. Surgery was consulted, a midline was placed, and pt was admitted NPO for further evaluation of whether surgery will be needed or not. As of this morning, there is no longer a plan for surgery. Continued plan is to advanced pt's diet past clear liquids to food in order to determine is she can d/c home today, or require further monitoring/tx. She lives independently with her spouse at baseline, uses no mobility devices. DCP will continue to follow and assist with any further evolving needs for d/c assistance. Discharge Planning/Care Management Advanced directive, confirm from FAMILY Start: 06/28/23 01:29 Freq: Q24H Status: Active Protocol: Document 06/28/23 01:29 SR (Rec: 06/28/23 01:31 SR [id number]) Advance Directive, confirm on record Time 01:31 Person contacted patient Copy received No CM Discharge Assessment Start: 06/28/23 10:30 Freq: Status: Active Protocol: Document 06/28/23 10:31 DPL (Rec: 06/28/23 10:34 DPL [id number]) Discharge Planning Assessment Assigned Winder Operator LESLIE Pacheco Advance Directives? Yes Advance Directives on File No History Provided By Patient,Family Member,Medical Record Prior Living Arrangements House Household Members spouse Type of transporation used prior to Drives own vehicle admit Independent with ADL's Yes Is patient alert and oriented? Yes Caregiver for Another No Comment N/A Comment N/A Comment No anticipated home d/c needs identified at this time. Barriers to Discharge No Discharge Plan Home Transportation Arrangement Spouse Referrals Initiated None needed Whiteboard Updated in Patient Room with Yes name and ext. # of Winder Operator Review Status In Process Please Provide Date Initial DC 06/28/23 Assessment Was Performed
--- NOTE | 2023-06-28 11:00 | P.DS_ITS ---
History of Present Illness History of Present Illness Date Patient Seen: 06/28/23 Time Patient Seen: 11:00 Chief complaint: Abd Pain Narrative: 72-year-old female former smoker with history of previous small-bowel obstruction, diverticulitis and portal vein thrombosis on Eliquis who presented overnight with abdominal pain. Surgical hx includes: prior bowel resection in 2014, prior pancreatectomy in 2007, prior splenectomy in 2007, and previous hernia repair and CS delivery. Pain was noted throughout the abdomen and into the back. She also noted bloating. The pain felt very similar to when she had an ileus and bowel obstruction previously. She endorses some nausea but no vomiting prior to arrival to the ER but during workup in the ER she did begin vomiting. In the ER abdominal x-ray showed moderate amount of stool within the colon. CT abdomen pelvis showed a small bowel obstruction with transition point within the left lower quadrant. Surgery was consulted and requested admission to medicine service with surgery consult. They recommended holding off on NG for the time being. Discharge Providers Provider Date of admission: 06/27/23 23:58 Discharge Date: 06/28/23 Primary care physician: Johanna Hernandez MD Discharge provider: Romelia Curtis MD Summary Hospital Course Hospital Course: 72-year-old female former smoker with history of previous small-bowel obstruction, diverticulitis and portal vein thrombosis on Eliquis who presented overnight with abdominal pain. Surgical hx includes: prior bowel resection in 2014, prior pancreatectomy in 2007, prior splenectomy in 2007, and previous hernia repair and CS delivery. Pain was noted throughout the abdomen and into the back. She also noted bloating. The pain felt very similar to when she had an ileus and bowel obstruction previously. She endorses some nausea but no vomiting prior to arrival to the ER but during workup in the ER she did begin vomiting. In the ER abdominal x-ray showed moderate amount of stool within the colon. CT abdomen pelvis showed a small bowel obstruction with transition point within the left lower quadrant. Surgery was consulted and requested admission to medicine service with surgery consult. SHe remained NPO overnight. In the morning she was passing gas and tolerating liquids. She felt ready to go home. Counseled on slow advancing of diet and return precautions Status at Discharge Cognitive/behavioral status at discharge: oriented Functional status at discharge: independent ambulation Overall status at discharge: patient is back to baseline Time Spent with Patient Time spent: Less than 30 minutes Exam Vital Signs (past 8 hours): Oxygen Delivery Method Room Air Narrative Exam Narrative: GEN: Healthy appearing, well-developed, NAD. PSYCH: Good Judgment. AOx3. Normal memory, mood, and affect HEENT: -Head: NC/AT -Eyes: No discharge or redness CV: warm and well perfused LUNGS: breathing comfortably on RA ABD: non-distended, normal bowel sounds, non-tender, no organomegaly SKIN: Warm, well perfused. No skin rashes or abnormal lesions MSK: ambulating without difficulty NEURO: No focal deficits Objective Labs 06/27/23 22:22 06/27/23 22:22 Labs: Laboratory Results - last 24 hr 06/27/23 06/27/23 22:22 22:30 WBC 17.9 H RBC 4.90 Hgb 14.7 Hct 44.5 MCV 90.8 MCH 29.9 MCHC 33.0 RDW 14.2 Plt Count 349 Neut % (Auto) 76.9 H Lymph % (Auto) 14.5 L [place] % (Auto) 7.4 Eos % (Auto) 0.7 L Baso % (Auto) 0.5 Neut # (Auto) 51354 H Lymph # (Auto) 2600 [place] # (Auto) 1300 H Eos # (Auto) 100 Baso # (Auto) 100 Sodium 139 Potassium 3.8 Chloride 102 Carbon Dioxide 28 BUN 21 H Creatinine 0.54 Estimated GFR > 60 BUN/Creatinine Ratio 38.9 H Glucose 140 H Lactate 1.6 Calcium 10.2 Total Bilirubin 0.8 AST 31 ALT 19 Alkaline Phosphatase 104 Total Protein 8.5 H Albumin 4.7 Globulin 3.8 Albumin/Globulin Ratio 1.2 Lipase 60 Procalcitonin 0.05 Chlamy pneumoniae PCR Not detected Adenovirus (PCR) Not detected B.parapertussis DNA PCR Not detected Coronavirus OC43 (PCR) Not detected Coronavirus HKU1 (PCR) Not detected Coronavirus 229E (PCR) Not detected SARS-CoV-2 (PCR) Not detected Coronavirus NL63 (PCR) Not detected Human Metapneumovir PCR Not detected Influenza Type A (PCR) Not detected Influenza Type B (PCR) Not detected M. pneumoniae (PCR) Not detected Parainfluenza 1 (PCR) Not detected Parainfluenza 2 (PCR) Not detected Parainfluenza 3 (PCR) Not detected Parainfluenza 4 (PCR) Not detected RSV (PCR) Not detected Entero/Rhino (PCR) Not detected [facility] Medical History (Updated 06/28/23 @ 09:25 by Romelia Curtis MD) Small bowel obstruction GERD (gastroesophageal reflux disease) Bursitis Diverticulosis Pancreatic mass Surgical History Anesthesia History of bowel resection (~2014) History of pancreatectomy (~2007) Status post endometrial ablation History of splenectomy (~2007) Status post hernia repair Status post delivery Family History Father Heart disease Mother No known health problems Family/Other Mental health problem Social History marital status: number of children: 2 household members: spouse lives independently: Yes caregiver/support person: No housing: house Smoking Status: Former smoker second hand exposure: No alcohol intake: current substance use type: does not use Discharge Assessment & Plan Assessment and Plan Plan of Treatment: 72-year-old female with history of multiple abdominal surgeries, portal vein thrombosis on Eliquis and prior small-bowel obstruction who presented with abdominal pain and was found to have imaging findings on CT suggestive of small- bowel obstruction. Overnight she was made NPO and given IV fluids. This morning she is feeling significantly better and is wanting to go home. 1. Small bowel obstruction: Suspect related to adhesions from multiple abdominal surgeries. Symptoms significantly improved with overnight IV fluids. Bloating and distention has resolved as has her pain. She has toelrated Po fluids and would like to go home for the rest of her diet advancing. recommendations for slow advancing reviewed 2. Portal vein thrombosis -continue home Eliquis Discharge Plan Discharge Plan Patient Disposition: Home Discharge orders & Medications Prescriptions: Continued trazodone 50 mg tablet See Rx Instructions .ROUTE .COMPLEX Qty: 180 2RF Dose Instruction: take 2 tablets by mouth AT BEDTIME Rx Instructions: take 2 tablets by mouth AT BEDTIME apixaban 5 mg tablet 5 mg PO BID Qty: 180 2RF Follow up/Referrals: Johanna Hernandez MD [Primary Care Provider] - Activity Restrictions/Additional Instructions: Followu p for recheck as needed. You can take Tylenol up to a 1000 mg every 6 hours as needed for pain. Your xray does show stool but no signs of obstruction. Please return for fevers, worsening abdominal back or flank pain, persistent vomiting, black or bloody stools after not having any bowel movements or passing gas or flatus or other new or concerning changes. Diet/Activity/Treatments Diet comment: advance as tolerated Visit Report/Discharge Packet Stand Alone Forms: Patient Portal/API Discharge Data Primary Care Provider: Johanna Hernandez
--- NOTE | 2023-06-28 11:29 | PC.NURSE ---
Discharge note: Patient awake, alert, and pleasantly cooperative. Ambulating, tolerating fluids, and voiding. BS active, abdomen non distended, non tender. Discharge instructions given to both patient and spouse. Discussed importance of F/U with PMD, diet changes, and signs of worsening symptoms. Both verbalized understanding of discharge instructions. Home via private vehicle, accompanied by spouse.
== END 2023-06-28 11:37 | disposition home or self-care (01) | DRG 388 ==
LOC: ED 21:34 → AC 23:59
PROVIDERS: Admitting Provider Family Medicine; Emergency Provider Emergency Medicine; PCP Family Medicine; Referring Provider Emergency Medicine; Visit Provider Family Medicine
DX: K56.50 Intestinal adhesions [bands], unspecified as to partial versus complete obstruction (principal); I81 Portal vein thrombosis; Z87.891 Personal history of nicotine dependence; Z90.410 Acquired total absence of pancreas; Z90.81 Acquired absence of spleen; Z79.01 Long term (current) use of anticoagulants; Z90.49 Acquired absence of other specified parts of digestive tract
CPT/HCPCS: 36415; 74019; 74177; 80053; 81003; 83605; 83690; 84145; 85025; 87040; 87633; 93005; 96374; 99285; J0136; J2405; Q9967

== ENCOUNTER → 2023-07-08 12:32 | Outpatient (CLI) | payer OTHER, SELFPAY ==
[2023-06-28 01:25] VITALS: BMI 24.0
--- NOTE | 2023-07-08 12:32 | DI.MG.S_ITS ---
BILATERAL DIGITAL SCREENING MAMMOGRAM 3D/2D WITH CAD: 07/08/2023 CLINICAL: Routine screening. Comparison is made to exams dated: 07/02/2022 mammogram, 06/07/2021 mammogram, 06/06/2020 mammogram, and 07/14/2022 mammogram - [facility]. There are scattered areas of fibroglandular density in both breasts (category b / 25%-50% glandular tissue). Current study was also evaluated with a Computer Aided Detection (CAD) system. There are benign post operative findings and biopsy clip in the right breast. No significant masses, calcifications, or other findings are seen in either breast. There has been no significant interval change. IMPRESSION: BENIGN There is no mammographic evidence of malignancy. A 1 year screening mammogram is recommended. Based on the Tyrer Cuzick model (a risk assessment model) the patient's lifetime risk is 5.1% and her 10 year risk is 3.5%. According to the ACR, ACS, and NCCN guidelines, an annual breast MRI exam along with mammogram is recommended if the patient's lifetime risk is 20% or greater. This exam was interpreted at Station ID: [id number]. NOTE: For mammograms, a report in lay terms will be sent to the patient. Approximately 15% of breast malignancies will not be visualized mammographically. In the management of a palpable breast mass, a negative mammogram must not discourage biopsy of a clinically suspicious lesion. Electronically Signed By: Alex gallardo/del:07/08/2023 15:54:45 letter sent: Normal Exam ACR BI-RADS Category 2: Benign Finding(s) 3342F
== END ==
PROVIDERS: PCP Family Medicine; Referring Provider Family Medicine; Visit Provider Family Medicine
DX: Z12.31 Encounter for screening mammogram for malignant neoplasm of breast (principal); R92.323 Mammographic fibroglandular density, bilateral breasts
CPT/HCPCS: 77063; 77067

== ENCOUNTER → 2023-08-06 06:39 | Outpatient (CLI) | payer OTHER, SELFPAY ==
[2023-08-06 08:45] LABS: TSH w/ Reflex to FT4 1.05 uIU/mL (0.47-4.68)
[2023-08-06 09:01] LABS: Cholesterol 229 mg/dL (140-199); HDL Cholesterol 61 mg/dL (40-60); LDL Cholesterol Calculated 140 mg/dL (<100); Triglycerides 140 mg/dL (35-150)
[2023-08-06 09:03] LABS: Hemoglobin A1C% w Est Avg Glu 5.8 % (4.0-6.0)
== END ==
PROVIDERS: PCP Family Medicine; Referring Provider Family Medicine; Visit Provider Family Medicine
DX: E78.5 Hyperlipidemia, unspecified (principal); R73.03 Prediabetes; E03.9 Hypothyroidism, unspecified
CPT/HCPCS: 36415; 80061; 83036; 84443

== ENCOUNTER → 2023-09-14 18:13 | Outpatient (CLI) | payer OTHER, SELFPAY | PROVIDERS: PCP Family Medicine; Visit Provider Physician Assistant Medical | DX: R35.0 Frequency of micturition (principal) | CPT/HCPCS: 87086 ==

== ENCOUNTER → 2023-12-15 12:50 | Outpatient (CLI) | payer OTHER, SELFPAY ==
--- NOTE | 2023-12-18 14:26 | DIET.OUTPTC ---
Dietary Outpatient Consultation Note Consultation Date: 12/15/2023 Assessment: 73 y F referred to dietitian for prediabetes and hyperlipidemia. Akiko reports concerns r/t weight gain despite healthy eating and exercise. Would like to prevent diabetes. Was started on semaglutide 3 wk ago. Diet recall: B-1/2 c cottage cheese, peaches, 1/2 tbsp flaxseed L-fairlife shake, apple, 2 c skinny popcorn D- fish, salad, veg 9.5 glasses water Activity: 5 mi walks daily, weights for 10 minutes 3x/wk Has noted constipation for ~3 wks. Hx of prediabetes since 2016, per EMR noted hx of partial pancreatectomy- A1c 5.8% on 08/06/23 Lipid panel 08/06/23: TG 140, chol 229, LDL 140, HDL 61 Ht: 5 ft 4in Wt: 146 lb 2 oz BMI: 25.0 UBW: 141 lb Nutrition Diagnosis: Altered nutrition related lab values r/t e Interventions: 1. Encouraged sufficient intake as she continues semaglutide -Pt's BMI is normal for age 2. Provided educ on macros, types of fat, consistent carb, using myplate, protein, fiber w/ meals/snacks 3. Discussed fiber sources, recc amount 21 g for age 4. Continue physical activity and muscle building activities Monitoring/Evaluations: diet recall, labs, weight f/u 3 months Electronically Signed by: Cassandra Doan 12/18/23 14:26 Clinical Dietitian [address] [address]
== END ==
PROVIDERS: PCP Family Medicine; Referring Provider Family Medicine
DX: R73.03 Prediabetes (principal); E78.5 Hyperlipidemia, unspecified; R73.09 Other abnormal glucose; Z68.25 Body mass index [BMI] 25.0-25.9, adult; Z71.3 Dietary counseling and surveillance
CPT/HCPCS: 97802

== ENCOUNTER → 2024-02-08 06:46 | Outpatient (CLI) | payer OTHER, SELFPAY ==
[2024-02-08 08:58] LABS: Cholesterol 178 mg/dL (140-199); Glucose 91 mg/dL (80-110); HDL Cholesterol 53 mg/dL (40-60); LDL Cholesterol Calculated 99 mg/dL (<100); Triglycerides 129 mg/dL (35-150)
[2024-02-08 09:13] LABS: Vitamin D 25 Hydroxy (D3) 44.3 ng/mL (30.0-100.0)
[2024-02-08 10:13] LABS: Vitamin B12 541 pg/mL (239-931)
== END ==
PROVIDERS: PCP Family Medicine; Referring Provider Family Medicine; Visit Provider Family Medicine
DX: R73.03 Prediabetes (principal); E78.5 Hyperlipidemia, unspecified; Z90.410 Acquired total absence of pancreas
CPT/HCPCS: 36415; 80061; 82306; 82607; 82947

== ENCOUNTER → 2024-02-10 13:27 | Outpatient (CLI) | payer OTHER, SELFPAY ==
[2024-02-10 17:08] LABS: Hemoglobin A1C% w Est Avg Glu 5.7 % (4.0-6.0)
== END ==
LOC: LAB 13:28
PROVIDERS: PCP Family Medicine; Referring Provider Family Medicine; Visit Provider Family Medicine
DX: R73.03 Prediabetes (principal)
CPT/HCPCS: 36415; 83036

== ENCOUNTER → 2024-07-21 13:51 | Outpatient (CLI) | payer OTHER, SELFPAY ==
--- NOTE | 2024-07-21 13:52 | DI.MG.S_ITS ---
MM screening mammo BI: 07/21/2024. BI-RADS: 2 CLINICAL: 73-year old female for bilateral screening mammogram. Tyrer-Cuzick lifetime risk of 2.5%. No personal or first-degree family history of breast cancer. The patient had a prior right breast biopsy. The patient is status-post reduction mammoplasty. PRIOR EXAMS 07/08/2023, 07/14/2022, 07/02/2022, 06/07/2021, 06/06/2020. MAMMOGRAPHY TECHNIQUE: 2D and 3D (tomosynthesis) digital mammographic views obtained, with additional images as needed for full coverage. Current study was also evaluated with a Computer Aided Detection (CAD) system. DENSITY B. There are scattered areas of fibroglandular density. MAMMOGRAPHY FINDINGS Right: Biopsy marker present on the right. Benign-appearing post-surgical changes noted on the right. There are no suspicious masses, calcifications, or other findings in the breast. No significant change from comparison. Left: Benign-appearing post-surgical changes noted on the left. There are no suspicious masses, calcifications, or other findings in the breast. No significant change from comparison. IMPRESSION: * No evidence of malignancy with benign findings. RECOMMENDATIONS Bilateral * Annual screening mammography. OVERALL ASSESSMENT CATEGORY BI-RADS-2: Benign. The [employer] recommends annual screening mammography beginning at age 40 for women with average risk of breast cancer. ELECTRONICALLY SIGNED: Aziza Wilburn M.D. on 07/22/2024 at 02:44:27 PM PT Interpreting Station ID: [id number]
== END ==
PROVIDERS: PCP Family Medicine; Referring Provider Family Medicine; Visit Provider Family Medicine
DX: Z12.31 Encounter for screening mammogram for malignant neoplasm of breast (principal)
CPT/HCPCS: 77063; 77067

== ENCOUNTER → 2024-07-29 06:44 | Outpatient (CLI) | payer OTHER, SELFPAY ==
[2024-07-29 07:36] LABS: Add Manual Diff / Slide Review NO; Basophils Absolute Auto 100 /uL (0-100); Eosinophils Absolute Auto 100 /uL (0-450); Eosinophils Percent Auto 1.7 % (2-4); Hematocrit 38.7 % (36-46); Lymphocytes Absolute Auto 2700 /uL (1100-4500); Lymphocytes Percent Auto 42.2 % (25-40); Mean Corpuscular HGB Conc 33.6 % (30-36); Mean Corpuscular Hemoglobin 31.1 PG (26-34); Mean Corpuscular Volume 92.6 fL (80-100); Monocytes Absolute Auto 800 /uL (0-900); Monocytes Percent Auto 11.9 % (3-14); Neutrophils Absolute Auto 2700 /uL (1500-7000); Neutrophils Percent Auto 43.2 % (50-75); Platelet Count 298 X10^3/uL (150-400); Red Blood Cell Count 4.17 X10^6/uL (4.0-5.2); Red Cell Distribution Width 13.8 % (11.6-14.8); White Blood Cell Count 6.3 X10^3/uL (4.5-11.0)
[2024-07-29 07:45] LABS: Hemoglobin A1C% w Est Avg Glu 5.3 % (4.0-6.0)
[2024-07-29 08:01] LABS: HEMOLYSIS < 15 (0-50); Iron 141 ug/dL (37-170)
[2024-07-29 08:03] LABS: Cholesterol 194 mg/dL (140-199); HDL Cholesterol 57 mg/dL (40-60); LDL Cholesterol Calculated 115 mg/dL (<100); Triglycerides 109 mg/dL (35-150)
[2024-07-29 08:12] LABS: Percent Iron Saturation 43 % (15-50); Total Iron Binding Capacity 330 ug/dL (265-497); Transferrin 262 mg/dL (206-381)
== END ==
PROVIDERS: PCP Family Medicine; Referring Provider Family Medicine; Visit Provider Family Medicine
DX: R73.03 Prediabetes (principal); E78.5 Hyperlipidemia, unspecified; Z90.81 Acquired absence of spleen; D64.9 Anemia, unspecified
CPT/HCPCS: 36415; 80061; 83036; 83540; 83550; 85025

== ENCOUNTER → 2024-08-08 14:52 | Outpatient (CLI) | payer OTHER, SELFPAY | PROVIDERS: PCP Family Medicine; Visit Provider Family Medicine | DX: R10.9 Unspecified abdominal pain (principal) | CPT/HCPCS: 87086 ==

== ENCOUNTER → 2024-08-23 11:40 | Outpatient (CLI) | payer OTHER, SELFPAY ==
--- NOTE | 2024-08-23 11:42 | DI.US.S_ITS ---
PROCEDURE: US RENAL COMPLETE INDICATIONS: INCREASED FREQUENCY OF URINATION AND FLANK PAIN. TECHNIQUE: Real-time scanning was performed of the kidneys and bladder, with image documentation. COMPARISON: [facility], CT, CT ABDOMEN HEPATIC/ADRENAL PROTOCOL, 12/17/2023, 11:40. FINDINGS: Kidneys: Kidneys are normal in size. Right kidney measures 10.1 cm long; left kidney measures 10.6 cm long. Right renal cortical thickness is 1.6 cm; left renal cortical thickness is 1.9 cm. Renal cortical echotexture is normal. No hydronephrosis or nephrolithiasis. No suspicious solid mass lesions. Bladder: Pre-void bladder volume is 293 mL. Post-void residual is 7 mL. Pre-void images demonstrate no intraluminal masses or stones. On pre-void images, bilateral ureteral jets are noted with color Doppler interrogation. (Of note, ureteral jets may not be detectable in up to 25% of cases due to insufficient differences in specific gravity between ureteral and bladder urine). Miscellaneous: No free pelvic fluid. IMPRESSION: 1. No hydronephrosis or obstructive urolithiasis. 2. No significant postvoid residual. Dictated by: Wolf Hall M.D. on 08/23/2024 at 14:34 Approved by: Wolf Hall M.D. on 08/23/2024 at 14:38
== END ==
PROVIDERS: PCP Family Medicine; Referring Provider Family Medicine; Visit Provider Family Medicine
DX: R35.0 Frequency of micturition (principal); R10.9 Unspecified abdominal pain
CPT/HCPCS: 76770

== ENCOUNTER 2024-10-13 08:42 | Day surgery (SDC) | payer OTHER, SELFPAY ==
[2024-10-13 08:59] VITALS: BP 125/71; PULSE 70; RESP 16; TEMP 36.3; O2SAT 98
[2024-10-13] MEDS: LACTATED RINGERS 1,000 ML 100 ML IV (09:14)
--- NOTE | 2024-10-13 09:17 | P.HP_ITS ---
History of Present Illness History of Present Illness Date Patient Seen: 10/13/24 Time Patient Seen: 09:17 Chief complaint: [facility] Narrative: Akiko is a 74-year-old woman who had a colonoscopy in 2019 with removal of a tubular adenoma. She tends to have severe constipation. [facility] Medical History (Updated 10/13/24 @ 09:17 by Joaquim Andino MD) Small bowel obstruction GERD (gastroesophageal reflux disease) Bursitis Diverticulosis Pancreatic mass Surgical History Anesthesia History of bowel resection (~2014) History of pancreatectomy (~2007) Status post endometrial ablation History of splenectomy (~2007) Status post hernia repair Status post delivery Family History Father Heart disease Mother No known health problems Family/Other Mental health problem Social History marital status: number of children: 2 household members: spouse lives independently: Yes caregiver/support person: No housing: house Smoking Status: Former smoker second hand exposure: No alcohol intake: current substance use type: does not use Meds Home Medications and Allergies Home Medications ?Medication ?Instructions ?Recorded ?Confirmed ?Type estradiol 0.5 mg tablet 0.5 mg PO DAILY #90 tabs 10/13/24 Rx trazodone 50 mg tablet See Rx Instructions .Route 0 07/18/24 10/13/24 Rx .COMPLEX #180 tabs apixaban 5 mg tablet 5 mg PO BID #180 tabs 10/12/24 Rx semaglutide 1 mg SUBCUT QWEEK #4 mL 01/1910/12/24 Rx Allergies Allergy/AdvReac Type Severity Reaction Status Date / Time Penicillins (PENICILLINS) Allergy Intermediate RASH Verified 08/08/24 14:19 ciprofloxacin (From CIPRO) AdvReac Mild NAUSEA, Verified 08/08/24 14:19 BURSITIS Exam Vital Signs (past 8 hours): - 10/13/24 08:59 Temperature 97.3 F L Pulse Rate 70 Respiratory Rate 16 Blood Pressure 125/71 Pulse Oximetry 98 Oxygen Delivery Method Room Air Oxygen Delivery Method Room Air Const General: healthy appearing Assessment & Plan Assessment and plan (1) History of colon polyps: Status: Acute Plan Colonoscopy Time-Based Coding :: [TOTAL MINUTES] spent with patient and on the chart (including review of chart, obtaining history, exam, reviewing outside data, placing orders, documenting exam and treatment plan, and counseling patient) on [DATE]. PROFEE Supervisory It Specialist Document charge(s): No
[2024-10-13 09:48] VITALS: BP 146/78; PULSE 60; RESP 16; TEMP 36.2; O2SAT 98
--- NOTE | 2024-10-13 09:48 | PM.OP.COLON ---
Operative Date/Time/Diagnoses Date of procedure: 10/13/24 Time of procedure: 09:48 Pre-op diagnosis: History of tubular adenoma Post-op diagnosis: same Procedure & Clinicians Study performed: Colonoscopy Same procedure(s) as scheduled: Yes Surgeon: Joaquim Andino Procedure Notes Procedure in detail: Surgeon: Joaquim Andino MD Anesthesia: Simi Garcia CRNA Procedure: The patient was brought to the endoscopy suite, placed in left lateral decubitus position. The patient was connected to monitoring devices. A time-out was performed. Sedation was administered. Once the patient was adequately sedated, a digital rectal exam was performed and was normal. The scope was then inserted and advanced to the cecum where the appendiceal orifice was identified and photographed. The scope was then slowly withdrawn over greater than 6 minutes. The mucosa was thoroughly inspected. No polyp was identified. The anastomosis from her prior left colon resection appeared normal. The scope was retroflexed in the rectum. No other abnormalities were found. The scope was straightened and removed. The patient was awakened and brought to recovery. Scope withdrawal time: 8 minutes Sedation time: 12 minutes EBL: 0 Findings: Normal colon, normal anastomosis Post-procedure Disposition: PACU
== END 2024-10-13 10:16 | disposition home or self-care (01) ==
PROVIDERS: PCP Family Medicine; Referring Provider Surgery; Visit Provider Surgery
PROC: 0DJD8ZZ Inspection of Lower Intestinal Tract, Via Natural or Artificial Opening Endoscopic (ICD-10-PCS; CPT 45378; principal; 2024-10-13 10:00)
DX: Z12.11 Encounter for screening for malignant neoplasm of colon (principal); Z86.0101 Personal history of adenomatous and serrated colon polyps
CPT/HCPCS: G0105; J2704

== ENCOUNTER → 2024-12-29 06:40 | Outpatient (CLI) | payer OTHER, SELFPAY ==
[2024-12-29 07:30] LABS: Add Manual Diff / Slide Review NO; Hematocrit 40.9 % (36-46); Hemoglobin 13.5 g/dL (12.0-16.0); Lymphocytes Absolute Auto 3000 /uL (1100-4500); Mean Corpuscular HGB Conc 33.1 % (30-36); Mean Corpuscular Hemoglobin 31.2 PG (26-34); Mean Corpuscular Volume 94.4 fL (80-100); Platelet Count 261 X10^3/uL (150-400)
[2024-12-29 07:42] LABS: Hemoglobin A1C% w Est Avg Glu 5.7 % (4.0-6.0)
[2024-12-29 07:49] LABS: Alanine Aminotransferase 13 IU/L (<35); Albumin 4.2 g/dL (3.5-5.0); Albumin Globulin Ratio 1.4 (1.0-2.8); Alkaline Phosphatase 61 U/L (38-126); Blood Urea Nitrogen 12 mg/dL (7-17); Calcium 9.3 mg/dL (8.4-10.2); Carbon Dioxide 23 mmol/L (22-32); Chloride 102 mmol/L (98-107); Cholesterol 209 mg/dL (140-199); Estimated Glomerular Filt Rate > 60 mL/min (>60); Globulin 2.9 g/dL (1.7-4.1); Glucose 89 mg/dL (70-99); HDL Cholesterol 67 mg/dL (40-60); HEMOLYSIS 40 (0-50); Potassium 4.3 mmol/L (3.4-5.1); Sodium 135 mmol/L (137-145); Total Protein 7.1 g/dL (6.3-8.2); Triglycerides 108 mg/dL (35-150)
[2024-12-29 08:06] LABS: Free T3, Triiodothyronine Free 6.39 pg/mL (2.77-5.27); Free T4, Direct Thyroxine 1.01 ng/dL (0.78-2.19); Vitamin D 25 Hydroxy (D3) 50.2 ng/mL (30.0-100.0)
[2024-12-29 08:19] LABS: Thyroid Stimulating Hormone 1.07 uIU/mL (0.47-4.68)
[2024-12-29 08:39] LABS: Vitamin B12 374 pg/mL (239-931)
== END ==
PROVIDERS: PCP Family Medicine; Referring Provider Family Medicine; Visit Provider Family Medicine
DX: K76.9 Liver disease, unspecified (principal); R53.83 Other fatigue; Z90.410 Acquired total absence of pancreas
CPT/HCPCS: 36415; 80053; 80061; 82306; 82607; 83036; 84439; 84443; 84481; 85025

== ENCOUNTER → 2025-01-09 15:05 | Outpatient (CLI) | payer OTHER, SELFPAY ==
--- NOTE | 2025-01-09 17:10 | DI.NM.S_ITS ---
DATE OF SERVICE: 01/09/2025 PROCEDURE: Exercise stress test. INDICATIONS: Fatigue. CARDIAC STRESS: The patient underwent exercise stress test under the supervision of an attending staff. She walked on Teja protocol for 9 minutes and achieved maximum heart rate of 151, which was 103% of target heart rate, HIMA -61%, 10.1 METS of workload. Resting blood pressure 122/62 and peak blood pressure 150/80. Baseline rhythm was sinus. During stress, no convincing ischemic changes seen. Rare PVCs. Normal recovery. Oxygen saturation 96% at peak exercise. No chest pain. Had some shortness of breath. CONCLUSION: Exercise stress test is negative for inducible ischemia. Normal hemodynamic response. Excellent exercise capacity. No chest pain. No significant arrhythmias. Overall, low-risk exercise stress test. Antoni Akiko - TA/bernie/LIZETH doc#: [id number]/job#: [id number] dd: 01/09/2025 16:51:00 dt: 01/09/2025 17:01:00 DICTATING /COPIES TO: Freddie Brewer MD COPIES MNE: MAIRA;
== END ==
LOC: NUCM 15:06
PROVIDERS: PCP Family Medicine; Referring Provider Family Medicine; Visit Provider Family Medicine
DX: R06.02 Shortness of breath (principal)
CPT/HCPCS: 93017

== ENCOUNTER 2025-03-06 12:28 | Emergency (ER) | payer OTHER, SELFPAY ==
[2025-03-06] VITALS (9 sets, daily range): BP systolic 104–133; BP diastolic 52–75; PULSE 55–68; RESP 16–21; TEMP 36.7; O2SAT 93–100; BMI 21.9
--- NOTE | 2025-03-06 14:20 | EKG_ITS ---
[address] [id number] [address], [place] [address] Test Date: 2025-03-06 Pat Name: Akiko Corrales Department: Room: Gender: Female Fabrication Manager: SERG : 1950 Requested By: Order Number: [id number] Reading MD: Philippe Fajardo MD Measurements Intervals [place] Rate: 64 P: 45 UT: 186 QRS: 16 QRSD: 66 T: 5 QT: 418 QTc: 431 Interpretive Statements Normal sinus rhythm Septal infarct , age undetermined Electronically Signed On 03-06-2025 16:37:21 PST by Philippe Fajardo MD
--- NOTE | 2025-03-06 14:20 | DI.RAD.S_ITS ---
PROCEDURE: XR CHEST 1V INDICATIONS: Chest Pain TECHNIQUE: One view of the chest was acquired. COMPARISON: None. FINDINGS: Surgical changes and devices: None. Lungs and pleura: Lungs are clear. No pleural effusions or pneumothorax. Mediastinum: Mediastinal contours appear normal. Heart size is normal. Bones and chest wall: No suspicious bony lesions. Overlying soft tissues appear unremarkable. IMPRESSION: No acute cardiopulmonary abnormality is seen. Dictated by: Julián Schwartz M.D. on 03/06/2025 at 14:52 Approved by: Julián Schwartz M.D. on 03/06/2025 at 14:53
[2025-03-06 14:45] LABS: Add Manual Diff / Slide Review NO; Hematocrit 40.1 % (36-46); Hemoglobin 13.6 g/dL (12.0-16.0); Lymphocytes Absolute Auto 3600 /uL (1100-4500); Mean Corpuscular HGB Conc 33.8 % (30-36); Mean Corpuscular Hemoglobin 31.1 PG (26-34); Mean Corpuscular Volume 92.1 fL (80-100); Platelet Count 316 X10^3/uL (150-400)
[2025-03-06 14:46] LABS: INR 1.3 (0.9-1.3); Prothrombin Time 14.6 SECONDS (9.4-12.5)
[2025-03-06 14:49] LABS: PTT Partial Thromboplastin Tim 30 SECONDS (25.1-36.5)
[2025-03-06 14:52] LABS: Alanine Aminotransferase 17 IU/L (<35); Albumin 4.9 g/dL (3.5-5.0); Albumin Globulin Ratio 1.4 (1.0-2.8); Alkaline Phosphatase 60 U/L (38-126); Blood Urea Nitrogen 19 mg/dL (7-17); Calcium 9.5 mg/dL (8.4-10.2); Carbon Dioxide 23 mmol/L (22-32); Chloride 101 mmol/L (98-107); Creatine Kinase 44 U/L (30-135); Estimated Glomerular Filt Rate > 60 mL/min (>60); Globulin 3.5 g/dL (1.7-4.1); Glucose 107 mg/dL (70-99); Lipase 96 U/L (23-300); Magnesium 2.3 mg/dL (1.6-2.3); Potassium 4.3 mmol/L (3.4-5.1); Sodium 137 mmol/L (137-145); Total Protein 8.4 g/dL (6.3-8.2)
[2025-03-06 14:53] LABS: HEMOLYSIS 69 (0-50)
[2025-03-06 15:03] LABS: NT-proBNP (BNP-Adult 18+) 139 pg/mL (<125); Troponin I < 0.012 ng/mL (0.01-0.034)
--- NOTE | 2025-03-06 17:25 | ED_ITS ---
HPI - General Adult General Chief complaint: Dizziness Stated complaint: Sent from [facility] low blood pressure, shoulder pain Time Seen by Provider: 03/06/25 15:07 Source: patient Mode of arrival: Wheelchair History of Present Illness HPI narrative: 74-year-old woman with a history of prior portal vein thrombosis currently on Eliquis, initially seen in urgent care with complaints of left ear pain was found to be relatively hypotensive. She notes while she was walking around [facility], which is something she does daily, she had the acute onset of significant bilateral upper trapezius pain radiating down into show blades with complaints of feeling slightly lightheaded, she is sent to the ER for further evaluation. Initial blood pressure is 121/50 Related Data Home Medications ?Medication ?Instructions ?Recorded ?Confirmed estradiol 0.5 mg tablet 0.5 mg PO DAILY 03/06/2502/18 famotidine 20 mg tablet 20 mg PO DAILY 03/06/2502/25 fluocinonide 0.05 % topical topical 03/06/25 03/06/25 solution minoxidil 2.5 mg tablet 0.625 mg PO DAILY 03/06/25 1 05/06/24 progesterone micronized 100 mg 100 mg PO ONCE PM 03/0603/06/25 capsule Previous Rx's ?Medication ?Instructions ?Recorded trazodone 50 mg tablet See Rx Instructions .Route 0 07/18/24 .COMPLEX #180 tabs apixaban 5 mg tablet 5 mg PO BID #180 tabs semaglutide 1 mg/dose (4 mg/3 mL) 1 mg (0.75 mL) SUBCU T QWEEK #3 mL 10/17/24 subcutaneous pen injector ketoconazole 2 % shampoo 1 applic topical 2XW #120 mL 12/28/24 Allergies Allergy/AdvReac Type Severity Reaction Status Date / Time Penicillins (PENICILLINS) Allergy Intermediate RASH Verified 03/06/25 12:39 ciprofloxacin (From CIPRO) AdvReac Mild NAUSEA, Verified 03/06/25 12:39 BURSITIS Review of Systems Review of Systems Narrative: Pertinent positive and negative findings as per HPI Patient History Medical History (Updated 03/06/25 @ 19:53 by Indu Saldivar MD) Small bowel obstruction GERD (gastroesophageal reflux disease) Bursitis Diverticulosis Pancreatic mass Surgical History Anesthesia History of bowel resection (~2014) History of pancreatectomy (~2007) Status post endometrial ablation History of splenectomy (~2007) Status post hernia repair Status post delivery Family History Father Heart disease Mother No known health problems Family/Other Mental health problem Social History marital status: number of children: 2 household members: spouse lives independently: Yes caregiver/support person: No housing: house Smoking Status: Never smoker second hand exposure: No alcohol intake: current substance use type: does not use Smoking Status: Never smoker alcohol intake frequency: holidays/special occasions only Exam Initial Vital Signs Initial Vital Signs: Vital Signs Temperature 98.0 F 03/06/25 12:39 Pulse Rate 68 03/06/25 12:39 Respiratory Rate 18 03/06/25 12:39 Blood Pressure 121/58 L 03/06/25 12:39 Pulse Oximetry 100 03/06/25 12:39 Oxygen Delivery Method Room Air 03/06/25 12:39 General: Healthy appearing, in no acute distress. Able to give a complete and coherent history. Well-nourished well-developed HEENT: Moist mucous membranes, normal sclera with reactive pupils, left tympanic membrane has some scarring but is not red no obvious fluid and normal external canal Respiratory: Lungs are clear to auscultation, no wheezing no rales no rhonchi. Full and symmetrical air movement Cardiac: Regular rate and rhythm no murmurs no bruits Abdomen: Soft, nontender, no rebound or guarding, no flank pain Skin: Warm and dry, no rashes Neurologic: Grossly neurologically intact with no obvious asymmetries or abnormalities Extremities: No trauma, well perfused Psych: Cooperative, appropriate insight and affect Course Orders Ordered: ED Orders 03/06/25 13:08 Complete Blood Count AUTO DIFF Stat Comprehensive Metabolic Panel Stat Lipase Stat Magnesium Stat NT-proBNP (BNP-Adult 18+) Stat PTT Partial Thromboplastin Rk Stat Prothrombin Time INR Stat Troponin & CK Cardiac Panel Stat 03/06/25 14:20 XR chest 1V Stat EKG-12 Lead Stat 03/06/25 17:50 Troponin I Stat 03/06/25 18:30 D Dimer Stat Vital Signs Vital signs: Vital Signs - 8 hr 03/06/25 12:39 03/06/25 16:20 03/06/25 16:30 Temperature 98.0 F Pulse Rate 68 64 Respiratory Rate 18 16 Blood Pressure 121/58 L 117/58 L 104/52 L Pulse Oximetry 100 94 Oxygen Delivery Method Room Air 03/06/25 16:30 03/06/25 17:00 03/06/25 17:30 Temperature Pulse Rate 64 59 L 62 Respiratory Rate 20 21 20 Blood Pressure Pulse Oximetry 95 96 95 Oxygen Delivery Method 03/06/25 17:33 03/06/25 17:33 03/06/25 18:00 Temperature Pulse Rate 60 Respiratory Rate 16 Blood Pressure 123/58 L 133/75 Pulse Oximetry 95 Oxygen Delivery Method 03/06/25 18:00 03/06/25 18:30 03/06/25 18:31 Temperature Pulse Rate 58 L 56 L 55 L Respiratory Rate 18 19 20 Blood Pressure Pulse Oximetry 96 93 94 Oxygen Delivery Method 03/06/25 18:31 Temperature Pulse Rate Respiratory Rate Blood Pressure 116/63 Pulse Oximetry Oxygen Delivery Method Medical Decision Making Lab Data 03/06/25 13:08 03/06/25 13:08 Labs: Lab Results 03/06/25 03/06/25 03/06/25 Range/Units 13:08 17:50 18:30 WBC 10.0 (4.5-11.0) X10^3/uL RBC 4.36 (4.0-5.2) X10^6/uL Hgb 13.6 (12.0-16.0) g/dL Hct 40.1 (36-46) % MCV 92.1 (80-100) fL MCH 31.1 (26-34) PG MCHC 33.8 (30-36) % RDW 13.9 (11.6-14.8) % Plt Count 316 (150-400) X10^3/uL Neut % (Auto) 54.9 (50-75) % Lymph % (Auto) 36.3 (25-40) % Baldwin % (Auto) 7.5 (3-14) % Eos % (Auto) 0.7 L (2-4) % Baso % (Auto) 0.6 (0-2) % Neut # (Auto) 5500 (0693-5488) /uL Lymph # (Auto) 3600 (7077-1914) /uL Baldwin # (Auto) 800 (0-900) /uL Eos # (Auto) 100 (0-450) /uL Baso # (Auto) 100 (0-100) /uL PT 14.6 H (9.4-12.5) SECONDS INR 1.3 (0.9-1.3) APTT 30 (25.1-36.5) SECONDS D-Dimer < 200 (<500) ng/ml Sodium 137 (137-145) mmol/L Potassium 4.3 (3.4-5.1) mmol/L Chloride 101 (98-107) mmol/L Carbon Dioxide 23 (22-32) mmol/L BUN 19 H (7-17) mg/dL Creatinine 0.72 (0.52-1.04) mg/dL Estimated GFR > 60 (>60) mL/min BUN/Creatinine Ratio 26.4 H (6-22) Glucose 107 H (70-99) mg/dL Calcium 9.5 (8.4-10.2) mg/dL Magnesium 2.3 (1.6-2.3) mg/dL Total Bilirubin 0.8 (0.2-1.3) mg/dL AST 43 H (14-36) IU/L ALT 17 (<35) IU/L Alkaline Phosphatase 60 (38-126) U/L Total Creatine Kinase 44 (30-135) U/L Troponin I < 0.012 < 0.012 (0.01-0.034) ng/mL NT-Pro-B Natriuret Pep 139 H (<125) pg/mL Total Protein 8.4 H (6.3-8.2) g/dL Albumin 4.9 (3.5-5.0) g/dL Globulin 3.5 (1.7-4.1) g/dL Albumin/Globulin Ratio 1.4 (1.0-2.8) Lipase 96 (23-300) U/L MDM Narrative Medical decision making narrative: CC: Left ear pain, acute episode of bilateral trapezius pain radiating into the mid shoulder Complicating co-morbidities: Anticoagulated with a history of a portal veins both Data collected from: patient Medical records reviewed: On January 09 patient had an exercise stress test for fatigue. It was found to be negative for inducible ischemia normal hemodynamic response with excellent exercise capacity, no chest pain no arrhythmias and determined to be overall low risk exercise stress test Differential considered: Ear infection, perforated tympanic membrane, acute coronary syndrome, NSTEMI, pulmonary embolus, musculoskeletal pain Exam documented above, pertinent findings include: Exam is entirely benign Lab Test results independently reviewed as above. Pertinent findings: CBC is within normal limits Metabolic panel shows appropriate renal function, AST minimally elevated at 43 First and 2nd troponin are unremarkable D-dimer is low Independently reviewed EKG: EKG shows sinus rhythm at a rate of 64 no acute ischemic changes Imaging studies independently reviewed: Chest x-ray is unremarkable Discussion: 74-year-old woman who while walking around [facility] had an acute episode of severe bilateral trapezius muscle pain radiating into her upper back. She also felt that she was somewhat unsteady when she went to her yoga class after her walk and was having increasing left ear crackling. The ear is unremarkable. Her workup is equally unremarkable for acute coronary syndrome, unstable angina or pulmonary embolus. At this point I believe discharge home is safe. She had a simple exercise treadmill test that was interpreted as low risk she may benefit from a nuclear medicine study for further stratification of her overall coronary artery disease status. Discussed this with her. We will ask her to follow up with her primary care physician. Suspect that the crackling in the left ear is mild Eustachian tube dysfunction and shared that with her as well. She is safe for discharge Additional Information: HEART score = 2 Discharge Plan Departure Patient Disposition: Home Clinical Impression: Acute dysfunction of left eustachian tube, Atypical chest pain Activity Restrictions/Additional Instructions: Thank you for coming in today The crackling in your left ear is likely related to your Eustachian tube in likely is going to resolve without any further treatment The acute episode of pain in the trapezius muscles, feeling a bit unsteady and then the very low blood pressure were much more concerning. Fortunately I did not see any evidence of an acute heart attack or heart attack like syndrome. You do not have any evidence of new blood clots such as a pulmonary embolism to explain your symptoms. I did review the treadmill test that you did last month and it looks like it did go well. Sometimes that actually isn't the best study for women and I would recommend that you schedule a follow up appointment with your primary care physician. She may suggest that you consider at nuclear medicine stress test in light of your symptoms this morning. If you do notice that you have recurrent symptoms with the trapezius muscle pain feeling lightheaded or any palpitations, acute shortness of breath or chest pain I would recommend returning to the emergency department Prescriptions: No Action ketoconazole 2 % shampoo 1 applic topical 2XW Qty: 120 0RF minoxidil 2.5 mg tablet 0.625 mg PO DAILY famotidine 20 mg tablet 20 mg PO DAILY estradiol 0.5 mg tablet 0.5 mg PO DAILY fluocinonide 0.05 % solution topical Patient Comments: Apply to affected areas on the scalp once daily for one week, then 1-3 TIMES weekly, as needed for irritation. Do not use when not irritated. progesterone micronized 100 mg capsule 100 mg PO ONCE PM trazodone 50 mg tablet See Rx Instructions .ROUTE .COMPLEX Qty: 180 2RF Dose Instruction: take 2 tablets by mouth AT BEDTIME Rx Instructions: take 2 tablets by mouth AT BEDTIME apixaban 5 mg tablet 5 mg PO BID Qty: 180 3RF semaglutide 1 mg/dose (4 mg/3 mL) pen injector 1 mg SUBCUT QWEEK Qty: 3 3RF Referrals: Johanna Hernandez MD [Primary Care Provider, Family Practice] Stand Alone Forms: Patient Portal/API
[2025-03-06 18:29] LABS: Troponin I < 0.012 ng/mL (0.01-0.034)
== END 2025-03-06 20:00 | disposition home or self-care (01) ==
PROVIDERS: Emergency Medicine; Emergency Provider Emergency Medicine; PCP Family Medicine
DX: H69.92 Unspecified Eustachian tube disorder, left ear (principal); R07.89 Other chest pain; M54.6 Pain in thoracic spine; H92.02 Otalgia, left ear; R42 Dizziness and giddiness; Z79.01 Long term (current) use of anticoagulants
CPT/HCPCS: 71045; 80053; 82550; 83690; 83735; 83880; 84484; 85025; 85379; 85610; 85730; 93005; 99283; 99284